=== PATIENT | female | born 1945 | race Caucasian/White ===

== ENCOUNTER 2017-04-22 08:47 | Inpatient (IN) ==
--- NOTE | 2017-04-22 09:31 | Emergency Department Note ---
Disposition Clinical Impression: Atrial fibrillation with RVR Disposition: Admitted As Inpatient Condition: Good Arrhythmia/Palpitations HPI - General Chief Complaint: ED Arrhythmia/Palpitations Stated Complaint: "A-fibs acting up" Time Seen by Provider: 04/22/17 08:54 Source: patient Mode of arrival: private vehicle Limitations: no limitations Nursing Notes Reviewed: Yes Vital Signs Reviewed: Yes - History of Present Illness HPI Narrative: 71-year-old female history of A. fib, hypertension, hyperlipidemia, diabetes who presents to the ER for palpitations or dizziness. Patient states she woke up this morning around 3 AM and fell twice because she felt weak. She states she then noticed that she was having palpitations and her heart felt like it was beating out of her chest. She reports a history of atrial fibrillation followed with cardiology and anticoagulated. No changes in her medications or missed doses. No chest pain or shortness of breath. Denies a history of CAD, SD, DVT or PE. No other complaints. Pt Subjective Complaint: palpitations Onset (ago): Just [employer] Duration: constant Severity: moderate Context: awoke with symptoms Arrhythmia History: atrial fibrillation Associated symptoms: Reports: near-syncope. Denies: chest pain, shortness of breath, syncope - Related Data Home Medications Medication Instructions Recorded Confirmed Aspirin 81 mg PO DAILY 08/21/16 04/22/17 Atorvastatin [Lipitor] 40 mg PO HS 08/21/16 04/22/17 Dabigatran [Pradaxa] 150 mg PO BID 08/21/16 04/22/17 Diltiazem HCl [Diltiazem 24Hr Cd] 360 mg PO DAILY 08/21/16 04/22/17 Flecainide 100 mg PO Q12HR 08/21/16 04/22/17 Insulin Glargine [Lantus] 27 unit SQ HS 08/21/16 04/22/17 Insulin LISPRO [Humalog] 7 - 10 unit SQ TID PRN 08/21/16 04/22/17 Losartan Potassium [Cozaar] 100 mg PO DAILY 08/21/16 04/22/17 Ergocalciferol (VITAMIN D2) 50,000 unit PO QWEEK 04/22/17 04/22/17 [Vitamin D2] Allergies Allergy/AdvReac Type Severity Reaction Status Date / Time Penicillins [PCN] Allergy Anaphylaxis Verified 04/22/17 08:49 Sulfa (Sulfonamide Allergy Hives Verified 04/22/17 08:49 Antibiotics) All systems ED: reviewed and negative except as stated. Cardiovascular: Reports: palpitations. Denies: chest pain Respiratory: Denies: cough, dyspnea Gastrointestinal: Denies: abdominal pain, nausea, vomiting Neurological: Reports: other (Near syncope) Past Medical History - Past Medical History Attestation: Yes The following information was validated with the patient. Source: patient Medical history: Reports: arthritis, atrial fibrillation, diabetes, GERD, hyperlipidemia, hypertension Surgical history: Reports: carotid endarterectomy, cataract, orthopedic, other, other Psychiatric history: Reports: no psych history SURGICAL SUPPLIES STERILIZER history: Reports: no SURGICAL SUPPLIES STERILIZER history - Social History Smoking Status: Former smoker Smokeless Tobacco Status: No Alcohol use: Reports: none Drug use: Reports: none Physical Exam - General Limitations: no limitations General appearance: alert, in no apparent distress - Head Head exam: atraumatic, normocephalic, normal inspection - Eye Eye exam: Present: normal appearance, EOMI - ENT ENT exam: normal exam - Neck Neck exam: Present: normal inspection, full ROM - Chest Chest inspection: Present: normal inspection, symmetric chest wall rise - Respiratory Respiratory exam: Present: normal lung sounds bilaterally - Cardiovascular Cardiovascular exam: Present: tachycardia, irregular rhythm, normal heart sounds - Abdominal Exam Abdominal exam: Present: soft, Non-Tender. Absent: tenderness, distention, rigidity - Extremities Exam Extremities exam: Present: normal inspection, full ROM - Expanded Upper Extremity Exam Shoulder exam: Present: normal inspection, full ROM Arm exam: Present: normal inspection, full ROM Elbow exam: Present: normal inspection, full ROM Forearm/Wrist exam: Present: normal inspection, full ROM Hand exam: Present: normal inspection, full ROM Vascular exam: Normal: radial pulse - Expanded Lower Extremity Exam Hip/Pelvis exam: Present: normal inspection, full ROM Upper leg exam: Present: normal inspection, full ROM Knee exam: Present: normal inspection, full ROM Lower leg exam: Present: normal inspection, full ROM Ankle exam: Present: normal inspection, full ROM Foot/toe exam: Present: normal inspection, full ROM Neurovascular/Tendon exam: Absent: motor deficit, sensory deficit - Neurological Exam Neurological exam: Present: alert, other (GCS 15. Nonfocal neurologic exam.) - Psychiatric Psychiatric exam: Present: normal affect, normal mood - Skin Skin exam: Present: warm, dry, intact, normal color Course Course Narrative: Patient seen and examined. Hemodynamically stable here. Her heart rate is in the 120s. We will obtain an EKG, chest x-ray as well as labs including troponin and TSH. We will give her a Cardizem bolus and started Cardizem drip and admitted to the hospitalist service. - Reevaluation(s) Reevaluation #1: Discussed results of imaging and lab work with the patient. Her heart rate is currently in the 80s to low 100s after the Cardizem bolus. We will continue the drip and admit. Vital Signs Temperature 97.7 F 04/22/17 08:49 Pulse Rate 138 04/22/17 08:49 Respiratory Rate 20 04/22/17 08:49 Blood Pressure 91/54 04/22/17 08:49 O2 Sat by Pulse Oximetry 99 04/22/17 08:49 Temperature 97.7 F 04/22/17 08:49 Pulse Rate 104 04/22/17 10:52 Respiratory Rate 18 04/22/17 12:14 Blood Pressure 133/81 04/22/17 12:14 O2 Sat by Pulse Oximetry 96 04/22/17 10:52 Oxygen Delivery Oxygen Delivery Room Air Arrhythmia/Palpitations - [facility] Narrative Medical decision making narrative: 71-year-old female presents to the ER due to near syncope and palpitations. Found to be in A. fib RVR here. Reports compliance with her medications with no acute changes. She is currently anticoagulated. EKG here demonstrates A. fib RVR. Patient given Cardizem bolus and drip. Troponin is within normal limits. Admitted to the hospitalist service for A. fib RVR. - Lab Data Lab results reviewed: Yes I reviewed the patient's lab results. Result diagrams: 04/22/17 09:10 04/22/17 09:10 Lab Results 04/22/17 04/22/17 04/22/17 Range/Units 09:10 09:10 09:10 WBC 6.6 (4.3-11.1) K/mcL RBC 4.43 (3.82-4.97) M/mcL Hgb 14.4 (11.5-15.4) g/dL Hct 43.1 (35.3-44.9) % MCV 97.3 (83.0-100.0) fL MCH 32.5 (28.0-33.3) pg MCHC 33.4 (31.6-35.5) g/dL RDW 12.2 (11.5-14.5) % Plt Count 310 (140-400) K/mcL MPV 9.2 L (9.4-12.4) fL Immature Gran % 0.3 (0-4) % Seg Neutrophils % 78.9 % Lymphocytes % 14.0 % Monocytes % 5.6 % Eosinophils % 0.9 % Basophils % 0.3 % Neutrophils # 5.2 (1.6-8.9) K/mcL Lymphocytes # 0.9 (0.6-4.6) K/mcL Monocytes # 0.4 (0.0-1.3) K/mcL Eosinophils # 0.1 (0.0-0.6) K/mcL Basophils # 0.0 (0.0-0.2) K/mcL PT 14.2 H (9.4-12.1) Seconds INR 1.3 APTT 72.9 H (26.0-36.0) Seconds Sodium 139 (136-145) mEq/L Potassium 4.5 (3.5-4.5) mEq/L Chloride 103 (98-109) mEq/L Carbon Dioxide 25 (19-29) mEq/L BUN 29 H (7-20) mg/dL Creatinine 1.22 H (0.57-1.11) mg/dL Est GFR ( Amer) 53 L (> 60) Est GFR (Non-Af Amer) 44 L (> 60) BUN/Creatinine Ratio 24 (6-26) Glucose 263 H (70-99) mg/dL Calculated Osmolality 303 H (280-300) Calcium 10.5 (8.6-10.8) mg/dL Troponin I (0-0.03) ng/mL TSH 3.220 (0.350-4.840) mcIU/mL 04/22/17 Range/Units 09:10 WBC (4.3-11.1) K/mcL RBC (3.82-4.97) M/mcL Hgb (11.5-15.4) g/dL Hct (35.3-44.9) % MCV (83.0-100.0) fL MCH (28.0-33.3) pg MCHC (31.6-35.5) g/dL RDW (11.5-14.5) % Plt Count (140-400) K/mcL MPV (9.4-12.4) fL Immature Gran % (0-4) % Seg Neutrophils % % Lymphocytes % % Monocytes % % Eosinophils % % Basophils % % Neutrophils # (1.6-8.9) K/mcL Lymphocytes # (0.6-4.6) K/mcL Monocytes # (0.0-1.3) K/mcL Eosinophils # (0.0-0.6) K/mcL Basophils # (0.0-0.2) K/mcL PT (9.4-12.1) Seconds INR APTT (26.0-36.0) Seconds Sodium (136-145) mEq/L Potassium (3.5-4.5) mEq/L Chloride (98-109) mEq/L Carbon Dioxide (19-29) mEq/L BUN (7-20) mg/dL Creatinine (0.57-1.11) mg/dL Est GFR ( Amer) (> 60) Est GFR (Non-Af Amer) (> 60) BUN/Creatinine Ratio (6-26) Glucose (70-99) mg/dL Calculated Osmolality (280-300) Calcium (8.6-10.8) mg/dL Troponin I 0.01 (0-0.03) ng/mL TSH (0.350-4.840) mcIU/mL - Radiology Data Radiology results reviewed: Yes I reviewed the patient's radiology results. Chest X-Ray 04/22/17 09:17 IMPRESSION: No acute process. D/ / Nolberto Ricks MD / Nolberto Ricks MD Interpreting Provider: Nolberto Ricks MD - EKG Data EKG attestation: Yes I reviewed and interpreted this EKG. EKG results narrative: EKG demonstrates atrial fibrillation with rapid ventricular response with a rate of 122. Normal axis. QRS duration 104. QTC 372. ST flattening in lead 3. Nonspecific ST-T wave changes with slight 1 mm depression in lead V5 and V6. No gross ST elevations. Teresa - Teresa Situation: Demographics, MOA Background: Presenting Complaint, Relevant PMH, Meds, & Allergies Assessment: Vital Signs, Course and respsone to treatment, Exam Concerns, Patient/Family Expectation, Pertinant Lab Results, Outstanding Labs Recommendation: Barrier(s) to disposition, Recommendation based on pending studies, treatments, or consults Teersa Report Given to: Dr. David Moore Repor Time: 10:52 Attestation Statement - Attestation Attestation: I examined this patient and my medical decision-making was reviewed with the Resident Physician. I agree with the documented findings, disposition and treatment plan as described except to the extent set forth below. Patient eating complaint palpitations. Patient states she has a history of A. fib and she feels like she has gone into that rhythm again. Exam shows her laying in bed in no acute distress. Heart is tachycardia and irregularly irregular. Plan. Cardiac workup and Cardizem. Labs unremarkable. Patient admitted to medicine. 35 minutes of critical care exclusive of separately billable procedures.
[2017-04-22 09:38] LABS: Basophils % 0.3 %; Calcium 10.5 mg/dL (8.6-10.8); Eosinophils # 0.1 K/mcL (0.0-0.6); Eosinophils % 0.9 %; Hematocrit 43.1 % (35.3-44.9); Hemoglobin 14.4 g/dL (11.5-15.4); Immature Granulocytes % 0.3 % (0-4); Lymphocytes # 0.9 K/mcL (0.6-4.6); Mean Corpuscular HGB Conc 33.4 g/dL (31.6-35.5); Mean Corpuscular Hemoglobin 32.5 pg (28.0-33.3); Mean Corpuscular Volume 97.3 fL (83.0-100.0); Mean Platelet Volume 9.2 fL (9.4-12.4); Monocytes # 0.4 K/mcL (0.0-1.3); Monocytes % 5.6 %; Neutrophils # 5.2 K/mcL (1.6-8.9); Platelet Count 310 K/mcL (140-400); Potassium 4.5 mEq/L (3.5-4.5); Red Blood Count 4.43 M/mcL (3.82-4.97); Red Cell Distribution Width 12.2 % (11.5-14.5); Segmented Neutrophils % 78.9 %
[2017-04-22 09:44] LABS: INR 1.3; Prothrombin Time 14.2 Seconds (9.4-12.1)
[2017-04-22 09:47] LABS: Activated Partial Thrombo Time 72.9 Seconds (26.0-36.0)
[2017-04-22 10:10] LABS: Thyroid Stimulating Hormone 3.22 mcIU/mL (0.350-4.840)
[2017-04-22] MEDS ORDERED: Naloxone 0.4 MG/ML INJ IVP PRN (11:55)
[2017-04-22] MEDS ORDERED: Ondansetron 4 MG/2 ML VIAL IVP PRN (11:55)
[2017-04-22] MEDS ORDERED: *HR* Morphine 2 MG/ML SYRINGE IVP PRN (11:55)
[2017-04-22] MEDS ORDERED: Acetaminophen 325 MG TABLET PO PRN (11:55)
[2017-04-22] MEDS ORDERED: *HR* HYDROcodone/Acet 5/325 mg TABLET PO PRN (11:55)
[2017-04-22] MEDS ORDERED: Dextrose Gel 15 GM PO PRN ×2 (12:40)
[2017-04-22] MEDS ORDERED: D5% in Water 1,000 ML IVC PRN (12:40)
[2017-04-22] MEDS ORDERED: *HR* Dextrose 50 % in Water (Syg) 50 ML SYRINGE IVP PRN (12:40)
--- NOTE | 2017-04-22 12:48 | Internal Med History&Physical ---
<Ki Snowden - Last Filed: 04/22/17 14:51> Date of Encounter: 04/22/17 Time of Encounter: 11:30 Assessment and Plan (1) Atrial fibrillation with RVR Current visit: Yes Status: Acute Patient presents with atrial fibrillation with RVR today on admission. She states symptoms began at 3 a.m. and have continued. Patient currently takes flecainide and Cardizem by mouth for rate control and arrhythmia. Patient placed on Cardizem drip to be titrated if patient becomes bradycardic. Will hold flecainide and Cardizem for now and continue after discontinuation of Cardizem drip. Patient placed on continuous cardiac telemetry. Repeat EKG ordered. Echocardiogram ordered. Will consider cardiology consult based on echocardiogram results. Patient to be monitored closely. (2) Weakness Current visit: Yes Status: Acute Patient reports acute weakness related to her current atrial fibrillation with RVR. Patient states she fell twice this morning due to weakness and dizziness. Orthostatic BPs and VS ordered. Patient placed as falls precautions/up with assist only/bed rest with bathroom privileges with assist only due to weakness and dizziness. (3) Diabetes Current visit: Yes Status: Chronic Patient presents with history of chronic diabetes controlled with insulin. Patient's glucose on admission is 263. We will continue patient's insulin and add low-dose correction sliding scale insulin with hypoglycemic protocol. Blood glucose monitoring before meals at bedtime. A1c ordered for a.m. labs. 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 IVP Zofran every 6 when necessary and IVP Protonix 40 mg twice a day ordered. Qualifiers: Esophagitis presence: esophagitis presence not specified Qualified Code(s) : K21.9 - Gastro-esophageal reflux disease without esophagitis (5) HLD (hyperlipidemia) Current visit: Yes Status: Chronic Patient presents with history of chronic hyperlipidemia. Lipid panel ordered and will continue patient's Lipitor. Qualifiers: Hyperlipidemia type: pure hypercholesterolemia Qualified Code(s): E78.00 - Pure hypercholesterolemia, unspecified; E78.0 - Pure hypercholesterolemia (6) HTN (hypertension) Current visit: Yes Status: Chronic Patient presents with history of chronic hypertension. We will monitor patient vital signs and continue patient's Cozaar. Qualifiers: Hypertension type: essential hypertension Qualified Code(s): I10 - Essential (primary) hypertension (7) CKD (chronic kidney disease) stage 3, GFR 30-59 ml/min Current visit: Yes Status: Chronic Patient presents with CKD, stage III with current GFR of 44. Will use IV fluids judiciously if warranted and avoid nephrotoxic agents. Renal diet ordered. Monitor I&O and daily weight. (8) DVT prophylaxis Current visit: Yes Status: Acute Patient to continue Pradaxa for anticoagulation and DVT prophylaxis. Internal Medicine - H&P: HPI Chief complaint: Heart arrhythmia/Atrial fibrillation w/RVR Admitted From: Emergency Dept Plans for Post Hospital Care: Home History of present illness: Ms. Marquez is a 71 year old female with medical history of arthritis, atrial fibrillation, diabetes with insulin control, GERD, hyperlipidemia, and hypertension presents from the ED with chief complaint heart arrhythmia, palpitations, and dizziness since 3 AM this morning. Patient has history of atrial fibrillation and is currently on Pradaxa for anticoagulation as well as flecainide and Cardizem for rate/arrhythmia. Patient has not had a recent echocardiogram. Patient denies chest pain, recent illness, fever, chills, nausea, vomiting, shortness of breath, headache, changes in vision, abdominal pain, presyncope, or syncope. On admission, patient's vital signs include temperature of 97.7F, heart rate of 138 bpm, respiratory rate 20, BP of 91/54, and SPO2 99% on room air. Abnormal labs include PT of 14.2, APTT 72.9, BUN of 29, creatinine of 1.22, GFR 44, glucose of 263, and calculated osmolality of 303. Initial troponin is 0.01. 1-View CXR today shows no acute process. On examination, patient's heart rate is regular A. fib with RVR. Lungs are clear on auscultation. There is no bilateral pedal edema. Patient is hemodynamically stable and reports no acute distress. Information taken from patient, family, chart review, previous medical records. Patient is at high risk for cardiac event based on current symptoms, history, and risk factors and will be placed as inpatient status. Time spent with patient and family >40 minutes. Past Med Surg Social Fam HX - Past Medical History Source: patient, old records reviewed Medical history: arthritis, atrial fibrillation, diabetes, GERD, hyperlipidemia , hypertension Psychiatric history: no psych history - Past Surgical History Surgical History: carotid endarterectomy (Right), cataract (Bilateral), orthopedic, other (Bilateral shoulder, bilateral carpal tunnel), other - Social History Smoking Status: Never smoker Smokeless Tobacco Status: No Alcohol use: none Drug use: none Current living situation: Home, With Family Activity Level: Independent ambulation Recent Out of Country Travel Within the Last 8 Weeks: No Exposure or Possible Exposure to Illness During Travel: No - Family History Father Race: Family Member Ethnicity: Non- Living Status: Age at : 62 Cause of : GA Hx Family Cardiac Disorders: Yes (GA) Hx Family Endocrine Disorder: Yes (DM) Mother Race: Family Member Ethnicity: Non- Living Status: Age at : 89 Cause of : HD Hx Family Cardiac Disorders: Yes (HD, HTN) Hx Family Endocrine Disorder: Yes (DM) Sister Race: Family Member Ethnicity: Non- Living Status: Still Living Hx Family Endocrine Disorder: Yes (DM) Internal Medicine - H&P: Meds Aspirin 81 mg PO DAILY 08/21/16 [History] Atorvastatin [Lipitor] 40 mg PO HS 08/21/16 [History] Dabigatran [Pradaxa] 150 mg PO BID 08/21/16 [History] Diltiazem HCl [Diltiazem 24Hr Cd] 360 mg PO DAILY 08/21/16 [History] Flecainide 100 mg PO Q12HR 08/21/16 [History] Insulin Glargine [Lantus] 27 unit SQ HS 08/21/16 [History] Insulin LISPRO [Humalog] 7 - 10 unit SQ TID PRN 08/21/16 [History] Losartan Potassium [Cozaar] 100 mg PO DAILY 08/21/16 [History] Ergocalciferol (VITAMIN D2) [Vitamin D2] 50,000 unit PO QWEEK 04/22/17 [History] 3 Allergy/AdvReac Type Severity Reaction Status Date / Time Penicillins [PCN] Allergy Anaphylaxis Verified 04/22/17 08:49 Sulfa (Sulfonamide Allergy Hives Verified 04/22/17 08:49 Antibiotics) All Systems PM: A 10-system review of systems was performed and is negative for pertinent findings except as documented above in the HPI. - Constitutional Constitutional: as per HPI, weakness, no chills, no fever(s), no night sweats - EENT Eyes: no change in vision, no discharge, no pain, no photophobia Ears: no ear discharge, no ear pain, no tinnitus Nose, mouth and throat: no dysphagia, no nasal discharge, no neck pain, no sore throat - Breasts Breasts: as per HPI - Cardiovascular Cardiovascular ROS IM: as per HPI, irregular heart rhythm, lightheadedness - Respiratory Respiratory: no cough, no dyspnea, no wheezing, no excessive phlegm production - Gastrointestinal Gastrointestinal: no abdominal pain, no diarrhea, no hematemesis, no hematochezia, no melena, no nausea, no vomiting - Genitourinary Genitourinary: no change in urinary stream, no dysuria, no flank pain, no hematuria Menstruation: as per HPI - Musculoskeletal Musculoskeletal ROS IM: no numbness, no tingling - Integumentary Integumentary IM: no rash, no unusual bruising - Neurological Neurological ROS: no confusion, no convulsions, no focal weakness, no numbness, no tingling, no tremor(s) - Psychiatric Psychiatric: as per HPI - Endocrine Endocrine IM: as per HPI - Hematologic/Lymphatic Hematologic/Lymphatic: no easy bruising - Allergic/Immunologic Allergic/Immunologic: as per HPI - Constitutional Vitals: Temp Pulse Resp BP Pulse Ox 97.7 F 104 18 133/81 96 04/22/17 08:49 04/22/17 10:52 04/22/17 12:14 04/22/17 12:14 04/22/17 10:52 General appearance: Present: cooperative, A&O X 3, pleasant, no acute distress, obese, answers questions appropriately - Head Head exam: Present: atraumatic, normocephalic - Eye Eye exam: Present: PERRL, conjuntiva pink, sclera anicteric Pupils: Present: PERRL - ENT ENT exam: Present: normal exam, normal external ear exam - Neck Neck exam general surgery: Present: normal inspection, supple, trachea midline. Absent: lymphadenopathy - Respiratory Respiratory exam: Present: CTAB. Absent: accessory muscle use, rales, rhonchi, wheezes - Cardiovascular Cardiovascular exam: Present: irregular rhythm - GI/Abdominal GI/Abdominal exam: Present: normal bowel sounds, soft, no peritoneal signs. Absent: distended, tenderness - Rectal Rectal exam: Present: deferred - Additional comments: exam deferred. - Extremities Exam Extremities exam: Present: warm, radial pulses palpable and symmetrical. Absent : calf tenderness, cyanotic, pedal edema - Back Exam Back exam: Present: normal inspection - Neurological Exam Neurological exam: Present: CN II-XII intact, oriented X3, no focal deficits. Absent: pronater drift, facial droop, speech deficit - Psychiatric Psychiatric exam: Present: normal affect, normal mood - Skin Skin exam: Present: dry, intact Internal Med - H&P Results - Labs CBC & Chem 7: 04/22/17 09:10 04/22/17 09:10 - EKG Data Prior EKG available for review: no Interpretation IM: suggestive of ischemia EKG comments: 04/22/17 14:30 EKG dated 04/22/17 shows atrial fibrillation with rapid ventricular response, ST deviation and moderate T-wave abnormality. Consider lateral ischemia. - Diagnostic Studies Chest x-ray Additional comments: Impressions Chest X-Ray 04/22/17 09:17 IMPRESSION: No acute process. D/ / Nolberto Ricks MD / Nolberto Ricks MD Interpreting Provider: Nolberto Ricks MD <Hema Heller P - Last Filed: 04/22/17 18:38> Date of Encounter: 04/22/17 Internal Medicine - H&P: HPI History of present illness: Ms. Marquez is a 71 year old female All Systems PM: A 10-system review of systems was performed and is negative for pertinent findings except as documented above in the HPI. - Constitutional Vitals: Temp Pulse Resp BP Pulse Ox 98.5 F 54 16 113/57 96 04/22/17 13:29 04/22/17 16:07 04/22/17 16:07 04/22/17 16:07 04/22/17 16:07 Internal Med - H&P Results - Labs CBC & Chem 7: 04/22/17 09:10 04/22/17 09:10 - Attending Attestation I examined this patient and my medical decision-making was reviewed with the Resident Physician. I agree with the documented findings, disposition and treatment plan as described except to the extent set forth below.
[2017-04-22] MEDS: Insulin LISPRO 300 UNITS/3 ML VIAL SQ SCH ×3 (13:57→20:41)
[2017-04-22] MEDS: *HR* Dabigatran 150 MG CAPSULE PO SCH (20:40)
[2017-04-22] MEDS: Pantoprazole 40 MG VIAL IVP SCH (20:40)
[2017-04-22] MEDS: Insulin DETEMIR 100 UNIT/ML X5UNITS SQ SCH (20:41)
[2017-04-22] MEDS ORDERED: INSULIN GLARGINE 27 UNIT SQ SCH (21:00)
[2017-04-23 05:16] LABS: Basophils % 0.4 %; Eosinophils # 0.1 K/mcL (0.0-0.6); Eosinophils % 1.8 %; Hematocrit 39.2 % (35.3-44.9); Immature Granulocytes % 0.1 % (0-4); Lymphocytes # 2.3 K/mcL (0.6-4.6); Lymphocytes % 33.8 %; Mean Corpuscular HGB Conc 33.2 g/dL (31.6-35.5); Mean Corpuscular Hemoglobin 32.6 pg (28.0-33.3); Mean Corpuscular Volume 98.2 fL (83.0-100.0); Mean Platelet Volume 9.3 fL (9.4-12.4); Monocytes # 0.6 K/mcL (0.0-1.3); Monocytes % 9.3 %; Neutrophils # 3.7 K/mcL (1.6-8.9); Platelet Count 283 K/mcL (140-400); Red Blood Count 3.99 M/mcL (3.82-4.97); Red Cell Distribution Width 12.4 % (11.5-14.5); Segmented Neutrophils % 54.6 %
[2017-04-23 05:20] LABS: INR 1.2; Prothrombin Time 13.1 Seconds (9.4-12.1)
[2017-04-23 05:23] LABS: Activated Partial Thrombo Time 53.5 Seconds (26.0-36.0)
[2017-04-23 05:30] LABS: Alanine Aminotransferase 13 Units/L (0-55); Albumin 3.4 g/dL (3.5-5.0); Albumin/Globulin Ratio 0.9 (1.1-2.2); Alkaline Phosphatase 92 Units/L (38-126); Aspartate Amino Transferase 16 Units/L (5-34); BUN/Creatinine Ratio 26 (6-26); Bilirubin,Total 0.5 mg/dL (0.2-1.2); Blood Urea Nitrogen 26 mg/dL (7-20); Calcium 10.1 mg/dL (8.6-10.8); Carbon Dioxide 27 mEq/L (19-29); Chloride 108 mEq/L (98-109); Chol/HDL Ratio 3.8 (0-4.9); Cholesterol 226 mg/dL (< 200); Glucose 95 mg/dL (70-99); HDL Cholesterol 60 mg/dL (40-59); LDL Cholesterol,Calculated 126 mg/dL (0-99); Magnesium 2.1 mg/dL (1.6-2.6); Osmolality,Calculated 301 (280-300); Potassium 4.2 mEq/L (3.5-4.5); Sodium 143 mEq/L (136-145); Total Protein 7.4 g/dL (6.0-8.3); Triglycerides 202 mg/dL (< 150); eGFR For African Americans > 60 (> 60); eGFR For Non-African Americans 54 (> 60)
[2017-04-23] MEDS: Diltiazem CD (24hr) 180 MG CAPSULE PO SCH (08:28)
[2017-04-23] MEDS: Insulin LISPRO 300 UNITS/3 ML VIAL SQ SCH ×4 (08:29→21:38)
[2017-04-23] MEDS: *HR* Dabigatran 150 MG CAPSULE PO SCH ×2 (08:29→21:36)
[2017-04-23] MEDS: Aspirin 81 MG TAB.CHEW PO SCH (08:29)
[2017-04-23] MEDS: Pantoprazole 40 MG VIAL IVP SCH ×2 (08:29→21:35)
--- NOTE | 2017-04-23 10:25 | Discharge Summary ---
Date of Encounter: 04/23/17 Time of Encounter: 09:15 - Discharge Medications Home Medications: Aspirin 81 mg PO DAILY 08/21/16 [History] Atorvastatin [Lipitor] 40 mg PO HS 08/21/16 [History] Dabigatran [Pradaxa] 150 mg PO BID 08/21/16 [History] Diltiazem HCl [Diltiazem 24Hr Cd] 360 mg PO DAILY 08/21/16 [History] Flecainide 100 mg PO Q12HR 08/21/16 [History] Insulin Glargine [Lantus] 27 unit SQ HS 08/21/16 [History] Insulin LISPRO [Humalog] 7 - 10 unit SQ TID PRN 08/21/16 [History] Losartan Potassium [Cozaar] 100 mg PO DAILY 08/21/16 [History] Ergocalciferol (VITAMIN D2) [Vitamin D2] 50,000 unit PO QWEEK 04/22/17 [History] Allergies/Adverse Reactions: 3 Allergy/AdvReac Type Severity Reaction Status Date / Time Penicillins [PCN] Allergy Anaphylaxis Verified 04/22/17 08:49 Sulfa (Sulfonamide Allergy Hives Verified 04/22/17 08:49 Antibiotics) Date of admission: 04/22/17 17:01 Primary care physician: Americo Arguello Jr, MD - Patient Status Condition: Good - Discharge Instructions Follow Up With: Americo Arguello Jr, MD [Primary Care Provider] - Hospital course: Ms. Marquez is a 71 year old female - Time Spent with Patient Total time spent providing and/or coordinating discharge services: - Constitutional Vitals: Temp Pulse Resp BP Pulse Ox 97.6 F 102 14 135/83 97 04/23/17 07:10 04/23/17 07:10 04/23/17 07:10 04/23/17 07:10 04/23/17 07:10 General appearance: Present: cooperative, A&O X 3, pleasant, no acute distress, obese, answers questions appropriately
--- NOTE | 2017-04-23 10:29 | Internal Med Progress Note ---
<Collins Perez - Last Filed: 04/23/17 16:03> Date of Encounter: 04/23/17 Time of Encounter: 09:15 - Assessment and plan (1) Atrial fibrillation with RVR Current Visit: Yes Status: Acute Assessment and plan: Patient has history of A fib with RVR Patient is on Cardiazem and Flecianide for rate control at home. Patient was taken off of cardiazem drip and was restarted on home meds. Patient's HR was still tachy on her home meds so Metoprolol was added. Continue to monitor. Will get a Stress test tomorrow to evaluate for possible cause of patient going into RVR. (2) Weakness Current Visit: Yes Status: Acute Assessment and plan: resolved. Likely 2/2 to a fib with RVR Continue to monitor. (3) Diabetes Current Visit: Yes Status: Chronic Assessment and plan: Chronic, Stable. Continue diabetic protocol. A1C 6.0 down from 6.2 in August. Qualifiers: Diabetes mellitus type: type 2 Diabetes mellitus complication status: with unspecified complications Diabetes mellitus emt intermediate insulin use: with correction use Qualified Code(s): E11.8 - Type 2 diabetes mellitus with unspecified complications; Z79.4 - manager intermediate (current) use of insulin (4) GERD (gastroesophageal reflux disease) Current Visit: Yes Status: Chronic Assessment and plan: Chronic, Stable. Continue PPI. Qualifiers: Esophagitis presence: esophagitis presence not specified Qualified Code(s) : K21.9 - Gastro-esophageal reflux disease without esophagitis (5) HLD (hyperlipidemia) Current Visit: Yes Status: Chronic Assessment and plan: Chronic. Patient's Cholesterol Panel showed Cholesterol 226, LDL 126, VLDL 40, HDL 60, and Triglycerides 202. Increased patient's Lipitor form 40mg to 80mg. Qualifiers: Hyperlipidemia type: pure hypercholesterolemia Qualified Code(s): E78.00 - Pure hypercholesterolemia, unspecified; E78.0 - Pure hypercholesterolemia (6) HTN (hypertension) Current Visit: Yes Status: Chronic Assessment and plan: Chronic, Stable. Continue home meds. Qualifiers: Hypertension type: essential hypertension Qualified Code(s): I10 - Essential (primary) hypertension (7) CKD (chronic kidney disease) stage 3, GFR 30-59 ml/min Current Visit: Yes Status: Chronic Assessment and plan: Chronic Stable. Avoid nephrotoxins Continue home meds. - Subjective Interval history: Patient reports feeling well. She reports her weakness/dizziness has resolved. She reports walking to the bathroom and back with out issue. No clear cause for patient's A fib with RVR. Patient has hx of A fib. - Constitutional Vitals: Temp Pulse Resp BP Pulse Ox 97.6 F 102 14 135/83 97 04/23/17 07:10 04/23/17 07:10 04/23/17 07:10 04/23/17 07:10 04/23/17 07:10 General appearance: Present: cooperative, A&O X 3, pleasant, no acute distress, obese, answers questions appropriately - Head Head exam: Present: atraumatic, normocephalic - Eye Eye exam: Present: PERRL, conjuntiva pink, sclera anicteric Pupils: Present: PERRL - Neck Neck exam general surgery: Present: supple, trachea midline - Respiratory Respiratory exam: Present: CTAB. Absent: accessory muscle use, rales, rhonchi, wheezes - Cardiovascular Cardiovascular exam: Present: RRR, +S1, +S2. Absent: diastolic murmur, gallop, rubs, systolic murmur - GI/Abdominal GI/Abdominal exam: Present: normal bowel sounds, soft, no peritoneal signs. Absent: distended, tenderness - Extremities Exam Extremities exam: Present: warm, radial pulses palpable and symmetrical. Absent : calf tenderness, cyanotic, pedal edema - Neurological Exam Neurological exam: Present: alert, oriented X3, no focal deficits. Absent: facial droop, speech deficit - Psychiatric Psychiatric exam: Present: normal affect, normal mood - Skin Skin exam: Present: dry, intact Internal Medicine: Result - Labs CBC & Chem 7: 04/23/17 04:25 04/23/17 04:25 Labs: Short CBC 04/23/17 Range/Units 04:25 WBC 6.8 (4.3-11.1) K/mcL Hgb 13.0 (11.5-15.4) g/dL Hct 39.2 (35.3-44.9) % Plt Count 283 (140-400) K/mcL Neutrophils # 3.7 (1.6-8.9) K/mcL BMP 04/23/17 04:25 Sodium 143 Potassium 4.2 Chloride 108 Carbon Dioxide 27 BUN 26 H Creatinine 1.01 Glucose 95 Calcium 10.1 Cardiac Enzymes 04/22/17 Range/Units 22:37 Troponin I 0.01 (0-0.03) ng/mL Liver Function 04/23/17 Range/Units 04:25 Total Bilirubin 0.5 (0.2-1.2) mg/dL AST 16 (5-34) Units/L ALT 13 (0-55) Units/L Alkaline Phosphatase 92 (38-126) Units/L Albumin 3.4 L (3.5-5.0) g/dL - ABG Interpretation ABG results: PT/INR, D-dimer PT 13.1 Seconds (9.4-12.1) H 04/23/17 04:25 Consult Discharge Plan - Plan Referrals: Americo Arguello Jr, MD [Primary Care Provider] - <Hema Heller P - Last Filed: 04/23/17 18:34> Date of Encounter: 04/23/17 - Constitutional Vitals: Temp Pulse Resp BP Pulse Ox 97.9 F 61 12 107/65 95 04/23/17 15:55 04/23/17 15:55 04/23/17 15:55 04/23/17 15:55 04/23/17 15:55 Internal Medicine: Result - Labs CBC & Chem 7: 04/23/17 04:25 04/23/17 04:25 Labs: Short CBC 04/23/17 Range/Units 04:25 WBC 6.8 (4.3-11.1) K/mcL Hgb 13.0 (11.5-15.4) g/dL Hct 39.2 (35.3-44.9) % Plt Count 283 (140-400) K/mcL Neutrophils # 3.7 (1.6-8.9) K/mcL BMP 04/23/17 04:25 Sodium 143 Potassium 4.2 Chloride 108 Carbon Dioxide 27 BUN 26 H Creatinine 1.01 Glucose 95 Calcium 10.1 Cardiac Enzymes 04/22/17 Range/Units 22:37 Troponin I 0.01 (0-0.03) ng/mL Liver Function 04/23/17 Range/Units 04:25 Total Bilirubin 0.5 (0.2-1.2) mg/dL AST 16 (5-34) Units/L ALT 13 (0-55) Units/L Alkaline Phosphatase 92 (38-126) Units/L Albumin 3.4 L (3.5-5.0) g/dL - ABG Interpretation ABG results: PT/INR, D-dimer PT 13.1 Seconds (9.4-12.1) H 04/23/17 04:25 - Attending Attestation I examined this patient and my medical decision-making was reviewed with the Resident Physician. I agree with the documented findings, disposition and treatment plan as described except to the extent set forth below.
--- NOTE | 2017-04-23 18:29 | Electrocardiograph Report ---
[address] [address] Test Date: 2017-04-22 Pat Name: Yaa Marquez Department: 105 Room: 2NE23 Gender: F Underwriting Analyst: MIRTA : 1945 Requested By: Radha See Order Number: [id number] Reading MD: Adelita Siu Measurements Intervals [place] Rate: 122 P: [place]: 0 QRS: 64 QRSD: 104 T: 130 QT: 299 QTc: 372 Interpretive Statements ATRIAL FIBRILLATION WITH RAPID VENTRICULAR RESPONSE ST DEVIATION AND MODERATE T-WAVE ABNORMALITY, CONSIDER LATERAL ISCHEMIA Electronically Signed On 04-23-2017 18:27:26 EDT by Adelita Siu
[2017-04-23] MEDS: Insulin DETEMIR 100 UNIT/ML X5UNITS SQ SCH (21:42)
[2017-04-24] MEDS ORDERED: Regadenoson 0.4 MG/5 ML SYRINGE IVP ONE (06:55)
[2017-04-24 07:05] LABS: Calcium 9.2 mg/dL (8.6-10.8); Potassium 4.4 mEq/L (3.5-4.5)
[2017-04-24] MEDS: Insulin LISPRO 300 UNITS/3 ML VIAL SQ SCH ×4 (09:10→21:21)
[2017-04-24] MEDS: Pantoprazole 40 MG VIAL IVP SCH ×2 (09:10→21:21)
[2017-04-24] MEDS: Aspirin 81 MG TAB.CHEW PO SCH (09:10)
[2017-04-24] MEDS: *HR* Dabigatran 150 MG CAPSULE PO SCH ×2 (09:11→21:21)
[2017-04-24] MEDS: Diltiazem CD (24hr) 180 MG CAPSULE PO SCH (09:11)
--- NOTE | 2017-04-24 13:02 | Nuclear Medicine Stress Report ---
Regadenoson Nuclear Stress Name: Yaa Marquez Date of Study: 04/24/2017 Date: 1945 Ht: 64.0 in Medical Record#: [id number] Age: 71 Wt: 157.0 lb Gender: Female Order #: [id number] Location: [facility] Room: [facility] Supervising Provider: Lm Garcia CNP Reading Physician: Jeffrey España DO, FACC, FASE, FASNC Ordering Physician: Shukri Koo MD Primary Care Physician: Americo Arguello MD Stress Technologist: Bibi Stone, CUSTODIAL LABORER, CCT, CPFT Real Estate Broker: Agata Beal Indications: A-fib Impression: Pharmacologic stress ECG is non-diagnostic for ischemia due to submaximal HR. Gated EF > 70%. Small sized, mild intensity, reversible apical lateral defect. Although I suspect this is artifact, ischemia cannot be excluded. Perfusion imaging was negative for infarct. History: Hypertension Diabetes Hypercholesteremia Stress Test Summary: Stress Test Type: Pharmacologic Regadenoson 0.4mg/5ml given IV Baseline Information: Initial Heart Rate: 62 Blood Pressure: 124/68 Stress Information: Stress Time: 4 min 00 sec Test Terminated Due to (primary): Completed Protocol Maximum Blood Pressure: 118/62 Maximum Heart Rate: 75 Percent Maximum Heart Rate Achieved: 50 Double Product: 8850 METS Reached: 1 Symptoms: Shortness of breath Nuclear Summary: SPECT myocardial perfusion imaging using Tc99m Sestamibi given intravenously was performed at rest and following cardiac stress testing. The resting images were obtained following initial dose of 10.8 mCi. Following stress an additional dose of 33 mCi was given at peak exercise or 30 seconds post regadenoson infusion. Medication Given: Time Medication Dose Units Route Findings: Stress Note * Atrial fibrillation throughout the study. * Pharmacologic stress ECG is non-diagnostic for ischemia due to submaximal HR. * Patient had no chest pain during stress. * Normal hemodynamic responses to pharmacologic stress. Study Quality * Study quality is average. Appeared to be contaminant on patient on tomographic images. Gated EF > 70% * Gated EF > 70%. Left Ventricle * The left ventricle is not dilated. * LVEDV = 47 mL. NORMALS * Normal wall motion. * Normal Segmental Perfusion in rest. Updated by Jeffrey España DO, FACCate, ARMINDA, JONATHON on 04/24/2017 12:54:54 PM electronically signed on 04/24/2017 12:57:00 PM with status of Final
--- NOTE | 2017-04-24 14:28 | Cardiology Consult Note ---
<Criselda Loza - Last Filed: 04/24/17 15:06> Date of Encounter: 04/24/17 Time of Encounter: 14:00 Assessment and Plan (1) Paroxysmal atrial fibrillation Current Visit: Yes Status: Chronic Per cardiology: -Known PAF. -ECg 04/22/27 with atrial fibrillation RVR, HR 122. Qt 299, Qtc 372. -On cardizem CD 360mg and flecanide. Beta blokcer added this admission. -was a.fib RVR on admission. HRs currently controlled, however remains in atrial fibrillation. -On pradaxa for anticoagulation. -Echo with LVEF 60-65%, indeterminate diastolic function, no significant valvular dysfunction, all hurst with normal motion. -Per discussion with , will increase flecanide to 150mg Q12 hours, creatinine clearance 52. -Will discontinue lopressor. -Will repeat ECG in am. -Will consult EP tomorrow. (2) Abnormal stress test Current Visit: Yes Status: Acute Per cardiology: -Nuclear stress today with small sized, mild intensity, reversible apical lateral defect. Suspected due to artifact, however ischemia could not be ruled out. -Denies chest pain, shortness of breath, or worsening fatigue. -On asa, statin, beta angel -ECG with no ischemic changes. -Troponins negative x3. -Per discussion with , will treat medically. Will discuss with EP tomorrow regarding possible need for LHC. Discussion w patient/family: The assessment and plan as outlined above was discussed with the patient and/or family members who expressed understanding and agreement. All questions were answered. Thank you for involving us in the care of your patient. Please call with any questions. Discussed and reviewed with . History of Present Illness Consult date: 04/24/17 Requesting physician: Collins Perez Consult reason: a.fib RVR, abnormal stress test Chief complaint: palpitations History of present illness: Ms. Marquez is a 71 year old female with a relevant past medical history of paroxysmal atrial fibrillation, HTN, DM, carotid stenosis with CEA, hyperlipidemia. Patient states she was at home and had palpitations and she noticed her HR was elevated. Patient presented to [facility] and was noted to be in atrial fibrillation with RVR. Patient denies chest pain or shortness of breath. Patient admits to fatigue, however states this is about baseline. Past Med Surg Social Fam HX - Past Medical History Attestation: Yes The following information was validated with the patient. Source: patient, old records reviewed Medical history: arthritis, atrial fibrillation, diabetes, GERD, hyperlipidemia , hypertension Psychiatric history: no psych history - Past Surgical History Surgical History: carotid endarterectomy (Right), cataract (Bilateral), orthopedic, other (Bilateral shoulder, bilateral carpal tunnel), other - Social History Smoking Status: Never smoker Smokeless Tobacco Status: No Alcohol use: none Drug use: none - Family History Father Race: Family Member Ethnicity: Non- Living Status: Age at : 62 Cause of : OR Hx Family Cardiac Disorders: Yes (OR) Hx Family Endocrine Disorder: Yes (DM) Mother Race: Family Member Ethnicity: Non- Living Status: Age at : 89 Cause of : HD Hx Family Cardiac Disorders: Yes (HD, HTN) Hx Family Endocrine Disorder: Yes (DM) Sister Race: Family Member Ethnicity: Non- Living Status: Still Living Hx Family Endocrine Disorder: Yes (DM) Medications and Allergies Aspirin 81 mg PO DAILY 08/21/16 [History] Atorvastatin [Lipitor] 40 mg PO HS 08/21/16 [History] Dabigatran [Pradaxa] 150 mg PO BID 08/21/16 [History] Diltiazem HCl [Diltiazem 24Hr Cd] 360 mg PO DAILY 08/21/16 [History] Flecainide 100 mg PO Q12HR 08/21/16 [History] Insulin Glargine [Lantus] 27 unit SQ HS 08/21/16 [History] Insulin LISPRO [Humalog] 7 - 10 unit SQ TID PRN 08/21/16 [History] Losartan Potassium [Cozaar] 100 mg PO DAILY 08/21/16 [History] Ergocalciferol (VITAMIN D2) [Vitamin D2] 50,000 unit PO QWEEK 04/22/17 [History] 3 Allergy/AdvReac Type Severity Reaction Status Date / Time Penicillins [PCN] Allergy Anaphylaxis Verified 04/22/17 08:49 Sulfa (Sulfonamide Allergy Hives Verified 04/22/17 08:49 Antibiotics) All Systems Review: A 10-system review of systems was performed and is negative for pertinent findings except as documented above in the HPI. - Cardiovascular Cardiovascular: as per HPI, irregular heart rhythm, palpitations, rapid heart rate Physical Examination Vital Signs, Last 4 Hours Temp Pulse Resp BP Pulse Ox 04/24/17 11:24 97.8 F 69 12 122/86 98 General: Conversant, No Apparent Distress HEENT: Atraumatic, Normocephaly, Mucus Membranes Moist Neck: No JVD, Normal carotid pulses Cardiac: Normal S1 and S2, No Murmur, Other (Irregularly, irregular. ) Lungs: Normal Breath Sounds, No Wheeze, Rales, Rhonchi Neuro: Alert and responsive, No focal deficits noted Abdomen: Soft, Non-Tender Skin: No rashes noted on visualized skin Musculoskeletal: No Chest Wall Tenderness Extremities: No Clubbing, No Cyanosis, No Edema, Normal Pulses Results 04/23/17 04:25 04/24/17 05:07 Lab Results Active Medications Acetaminophen (Tylenol) 650 mg PO Q6HR PRN PRN Reason: Mild Pain (1-3) Stop: 10/22/17 11:56 Hydrocodone Bitart/Acetaminophen ([place] 5-325 Mg) 1 tab PO Q4HR PRN PRN Reason: Moderate Pain (4-6) Stop: 10/22/17 11:56 Aspirin (Aspirin) 81 mg PO DAILY [facility] Stop: 10/23/17 09:01 Last Admin: 04/24/17 09:10 Dose: 81 mg Atorvastatin Calcium (Lipitor) 80 mg PO HS [facility] Stop: 10/23/17 21:01 Last Admin: 04/23/17 21:36 Dose: 80 mg Dabigatran (Pradaxa) 150 mg PO BID [facility] Stop: 10/22/17 21:01 Last Admin: 04/24/17 09:11 Dose: 150 mg Dextrose/Water (Dextrose 50% (Syg)) 25 ml IVP AD PRN PRN Reason: Hypoglycemia Stop: 10/22/17 12:41 Diltiazem HCl (Cardizem) 30 mg PO Q6HR PRN PRN Reason: Heart Rate- High Stop: 10/22/17 18:01 Diltiazem HCl (Cardizem Cd) 360 mg PO DAILY [facility] Stop: 10/23/17 09:01 Last Admin: 04/24/17 09:11 Dose: 360 mg Ergocalciferol (Drisdol (50,000 Unit)) 50,000 unit PO QWEEK [facility] Stop: 10/28/17 09:01 Flecainide Acetate (Flecainide) 100 mg PO Q12HR [facility] Stop: 10/22/17 18:01 Last Admin: 04/24/17 09:10 Dose: 100 mg Glucagon (Glucagen) 1 mg IM ONCE PRN PRN Reason: Hypoglycemia Stop: 10/22/17 12:41 Glucose (Gluctose) 15 gm PO ONCE PRN PRN Reason: Hypoglycemia Stop: 10/22/17 12:41 Glucose (Gluctose) 30 gm PO ONCE PRN PRN Reason: Hypoglycemia Stop: 10/22/17 12:41 Dextrose (Dextrose 5%) 1,000 mls @ 100 mls/hr IVC .Q10H PRN PRN Reason: HYPOGLYCEMIA Stop: 10/22/17 12:41 Insulin Detemir (Levemir) 27 unit SQ HS [facility] Stop: 10/22/17 21:01 Last Admin: 04/23/17 21:42 Dose: Not Given Insulin Human Lispro (Humalog) 0 units SQ TIDAC [facility] PRN Reason: Protocol Stop: 10/22/17 14:01 Last Admin: 04/24/17 12:55 Dose: 4 units Insulin Human Lispro (Humalog) 0 units SQ HS [facility] PRN Reason: Protocol Stop: 10/22/17 21:01 Last Admin: 04/23/17 21:38 Dose: Not Given Losartan Potassium (Cozaar) 100 mg PO DAILY [facility] Stop: 10/23/17 09:01 Last Admin: 04/24/17 09:11 Dose: 100 mg Metoprolol Tartrate (Lopressor) 25 mg PO BID [facility] Stop: 10/23/17 21:01 Last Admin: 04/23/17 21:36 Dose: 25 mg Morphine Sulfate (Morphine Sulfate) 2 mg IVP Q4HR PRN PRN Reason: Severe Pain (7-10) Stop: 10/22/17 11:56 Naloxone HCl (Narcan) 0.4 mg IVP Q2MIN PRN PRN Reason: Opioid Reversal Stop: 10/22/17 11:56 Ondansetron HCl (Zofran) 4 mg IVP Q8HR PRN PRN Reason: Nausea And Vomiting Stop: 10/22/17 11:56 Pantoprazole Sodium (Protonix) 40 mg IVP BID [facility] Stop: 10/22/17 21:01 Last Admin: 04/24/17 09:10 Dose: 40 mg Laboratory Tests 04/22/17 04/22/17 04/22/17 09:10 09:10 14:31 Hgb Potassium Creatinine 1.22 H Magnesium Troponin I 0.01 0.01 Triglycerides Cholesterol LDL Cholesterol, Calc HDL Cholesterol TSH 3.220 04/22/17 04/23/17 04/23/17 22:37 04:25 04:25 Hgb 13.0 Potassium Creatinine Magnesium 2.1 Troponin I 0.01 Triglycerides 202 H Cholesterol 226 H LDL Cholesterol, Calc 126 H HDL Cholesterol 60 H TSH 04/24/17 05:07 Hgb Potassium 4.4 Creatinine 1.12 H Magnesium Troponin I Triglycerides Cholesterol LDL Cholesterol, Calc HDL Cholesterol TSH - Imaging and Cardiology Chest Xray: report reviewed Stress Test: report reviewed Echo: report reviewed - EKG Interpretation EKG results cardiology: personally reviewed (ECG with atrial fibrillation RVR, HR 122.), other (Telemetry reviewed with average HR 64, atrial fibrillation. Minimum HR 52 at 0258. Longest pause 2.4 seconds.) Consult Discharge Plan - Plan Referrals: Americo Arguello Jr, MD [Primary Care Provider] - 04/29/17 11:00 am <Jeanna Sinclair - Last Filed: 04/25/17 09:56> Date of Encounter: 04/25/17 Assessment and Plan Discussion w patient/family: The assessment and plan as outlined above was discussed with the patient and/or family members who expressed understanding and agreement. All questions were answered. Thank you for involving us in the care of your patient. Please call with any questions. History of Present Illness History of present illness: Ms. Marquez is a 71 year old female All Systems Review: A 10-system review of systems was performed and is negative for pertinent findings except as documented above in the HPI. Physical Examination Vital Signs, Last 4 Hours Temp Pulse Resp BP Pulse Ox 04/25/17 07:05 97.5 F L 73 15 116/66 98 Results 04/23/17 04:25 04/25/17 04:22 Lab Results 04/25/17 04:22 Sodium 140 Potassium 4.2 Chloride 108 Carbon Dioxide 25 BUN 30 H Creatinine 1.08 Glucose 99 Calcium 9.7 - Attending Attestation I examined this patient and my medical decision-making was reviewed with the Resident Physician. I agree with the documented findings, disposition and treatment plan.
--- NOTE | 2017-04-24 16:43 | Internal Med Progress Note ---
<KinayleenCollins - Last Filed: 04/24/17 16:40> Date of Encounter: 04/24/17 Time of Encounter: 07:45 - Assessment and plan (1) Atrial fibrillation with RVR Current Visit: Yes Status: Acute Assessment and plan: Patient has history of A fib with RVR Patient is on Cardiazem and Flecianide for rate control at home. Patient was taken off of cardiazem drip and was restarted on home meds. Stress test today showed: "Pharmacologic stress ECG is non-diagnostic for ischemia due to submaximal HR. Gated EF > 70%. Small sized, mild intensity, reversible apical lateral defect. Although I suspect this is artifact, ischemia cannot be excluded. Perfusion imaging was negative for infarct." Cardiology was consulted. Cardiology increased atient's flecinade and discontnued metoprolol Cardiology will consult electrophyiologist tomorrow and possibly Cath the patient. (2) Weakness Current Visit: Yes Status: Acute Assessment and plan: resolved. Likely 2/2 to a fib with RVR -Continue to monitor. (3) Diabetes Current Visit: Yes Status: Chronic Assessment and plan: Chronic, Stable. -Continue diabetic protocol. A1C 6.0 down from 6.2 in August. Qualifiers: Diabetes mellitus type: type 2 Diabetes mellitus complication status: with unspecified complications Diabetes mellitus bait digger insulin use: with bait digger use Qualified Code(s): E11.8 - Type 2 diabetes mellitus with unspecified complications; Z79.4 - senior care (current) use of insulin (4) GERD (gastroesophageal reflux disease) Current Visit: Yes Status: Chronic Assessment and plan: Chronic, Stable. -Continue PPI. Qualifiers: Esophagitis presence: esophagitis presence not specified Qualified Code(s) : K21.9 - Gastro-esophageal reflux disease without esophagitis (5) HLD (hyperlipidemia) Current Visit: Yes Status: Chronic Assessment and plan: Chronic. -Patient's Cholesterol Panel showed Cholesterol 226, LDL 126, VLDL 40, HDL 60, and Triglycerides 202. -Increased patient's Lipitor form 40mg to 80mg. Qualifiers: Hyperlipidemia type: pure hypercholesterolemia Qualified Code(s): E78.00 - Pure hypercholesterolemia, unspecified; E78.0 - Pure hypercholesterolemia (6) HTN (hypertension) Current Visit: Yes Status: Chronic Assessment and plan: Chronic, Stable. -Continue home meds. Qualifiers: Hypertension type: essential hypertension Qualified Code(s): I10 - Essential (primary) hypertension (7) CKD (chronic kidney disease) stage 3, GFR 30-59 ml/min Current Visit: Yes Status: Chronic Assessment and plan: Chronic Stable. -Avoid nephrotoxins -Continue home meds. - Subjective Interval history: Patient reports feeling well. Patient's Stress test today was equivocal so cardiology was consulted. They adjusted her medications and will consult Electro Food Service Specialist tomorrow. They may cath the patient tomorrow. - Constitutional Vitals: Temp Pulse Resp BP Pulse Ox 97.6 F 72 12 138/89 95 04/24/17 15:56 04/24/17 15:56 04/24/17 15:56 04/24/17 15:56 04/24/17 15:56 General appearance: Present: cooperative, A&O X 3, pleasant, no acute distress, obese, answers questions appropriately - Head Head exam: Present: atraumatic, normocephalic - Eye Eye exam: Present: PERRL, conjuntiva pink, sclera anicteric Pupils: Present: PERRL - Neck Neck exam general surgery: Present: supple, trachea midline - Respiratory Respiratory exam: Present: CTAB. Absent: accessory muscle use, rales, rhonchi, wheezes - Cardiovascular Cardiovascular exam: Present: irregular rhythm, +S1, +S2. Absent: diastolic murmur, gallop, rubs, systolic murmur - GI/Abdominal GI/Abdominal exam: Present: normal bowel sounds, soft, no peritoneal signs. Absent: distended, tenderness - Extremities Exam Extremities exam: Present: warm. Absent: calf tenderness, cyanotic, pedal edema - Neurological Exam Neurological exam: Present: alert, oriented X3. Absent: facial droop, speech deficit - Skin Skin exam: Present: dry, intact Internal Medicine: Result - Labs CBC & Chem 7: 04/23/17 04:25 04/24/17 05:07 Labs: BMP 04/24/17 05:07 Sodium 139 Potassium 4.4 Chloride 108 Carbon Dioxide 23 BUN 34 H Creatinine 1.12 H Glucose 163 H Calcium 9.2 - ABG Interpretation ABG results: PT/INR, D-dimer PT 13.1 Seconds (9.4-12.1) H 04/23/17 04:25 Consult Discharge Plan - Plan Referrals: Americo Arguello Jr, MD [Primary Care Provider] - 04/29/17 11:00 am <Hema Heller - Last Filed: 04/24/17 17:52> Date of Encounter: 04/24/17 - Constitutional Vitals: Temp Pulse Resp BP Pulse Ox 97.6 F 72 12 138/89 95 04/24/17 15:56 04/24/17 15:56 04/24/17 15:56 04/24/17 15:56 04/24/17 15:56 Internal Medicine: Result - Labs CBC & Chem 7: 04/23/17 04:25 04/24/17 05:07 Labs: BMP 04/24/17 05:07 Sodium 139 Potassium 4.4 Chloride 108 Carbon Dioxide 23 BUN 34 H Creatinine 1.12 H Glucose 163 H Calcium 9.2 - ABG Interpretation ABG results: PT/INR, D-dimer PT 13.1 Seconds (9.4-12.1) H 04/23/17 04:25 - Attending Attestation I examined this patient and my medical decision-making was reviewed with the Resident Physician. I agree with the documented findings, disposition and treatment plan as described except to the extent set forth below.
[2017-04-24] MEDS: Insulin DETEMIR 100 UNIT/ML X5UNITS SQ SCH (21:20)
[2017-04-25 05:05] LABS: BUN/Creatinine Ratio 28 (6-26); Blood Urea Nitrogen 30 mg/dL (7-20); Calcium 9.7 mg/dL (8.6-10.8); Carbon Dioxide 25 mEq/L (19-29); Chloride 108 mEq/L (98-109); Glucose 99 mg/dL (70-99); Osmolality,Calculated 296 (280-300); Potassium 4.2 mEq/L (3.5-4.5); Sodium 140 mEq/L (136-145); eGFR For African Americans > 60 (> 60); eGFR For Non-African Americans 50 (> 60)
[2017-04-25] MEDS: Insulin LISPRO 300 UNITS/3 ML VIAL SQ SCH ×4 (07:54→22:19)
[2017-04-25] MEDS: Pantoprazole 40 MG VIAL IVP SCH ×2 (08:49→20:55)
[2017-04-25] MEDS: Aspirin 81 MG TAB.CHEW PO SCH (08:49)
[2017-04-25] MEDS: Diltiazem CD (24hr) 180 MG CAPSULE PO SCH (08:52)
--- NOTE | 2017-04-25 11:36 | Electrophysiology Consult Note ---
Date of Encounter: 04/25/17 Time of Encounter: 11:33 Assessment and Plan (1) Paroxysmal atrial fibrillation Current Visit: Yes Status: Chronic Per EP: -Known PAF. -ECG 04/24/171945 A-Fib, rate 68, QRS 117ms, QT/QTc 423/441ms. -On cardizem CD 360mg and flecainide 150mg BID. -was a.fib RVR on admission. HRs currently controlled, however remains in atrial fibrillation. 24 hr tele AVG HR 66. -On pradaxa for anticoagulation. -Echo with LVEF 60-65%, indeterminate diastolic function, no significant valvular dysfunction, all hurst with normal motion. -Flecanide was increased to 150mg Q12 hours yesterday, creatinine clearance 52. Pt has received 2 doses of increased Flecainide. -Repeat EKG this AM and tomorrow AM. -Concerning with pt being on Flecainide given stress test yesterday showing a small defect in apical lateral region in which ischemia could not be ruled out. Should not be on Flecainide with CAD. -Recommend [facility] to r/o CAD. -Pending cath results, if negative--continue Flecainide and will make NPO after midnight tonight for JESUS/DCCV tomorrow AM. Will need JESUS since Pradaxa dose was held this AM for [facility]. -Further recommendations following [facility]. (2) Abnormal stress test Current Visit: Yes Status: Acute Per cardiology: -Nuclear stress yesterday with small sized, mild intensity, reversible apical lateral defect. Suspected due to artifact, however ischemia could not be ruled out. -Denies chest pain, shortness of breath, or worsening fatigue. -On asa, statin, beta angel -ECG with no ischemic changes. -Troponins negative x3. -No personal hx of CAD, but multiple risk factors--HTN, HLD, DM, carotid disease s/p CEA. -Recommend [facility] to r/o CAD since she is on Flecainide for PAF. R/B/A discussed. Pt agrees to proceed. [facility] today. Received Pradaxa yesterday evening, but held this AM. Interventionalist aware. Discussion w patient/family: The assessment and plan as outlined above was discussed with the patient and/or family members who expressed understanding and agreement. All questions were answered. Thank you for involving us in the care of your patient. Please call with any questions. I will discuss all the above with Dr. Aniket Siu and make changes as necessary. History of Present Illness Consult date: 04/25/17 Requesting physician: Criselda Loza Consult reason: Flecainide recommendations Chief complaint: palpitations History of present illness: Ms. Marquez is a 71 year old female with a relevant past medical history of paroxysmal atrial fibrillation on Pradaxa and Flecainide, HTN, DM, carotid stenosis with CEA, hyperlipidemia. Patient states she was at home and had palpitations and she noticed her HR was elevated. Patient presented to [facility] and was noted to be in atrial fibrillation with RVR. Patient denies chest pain or shortness of breath. Patient admits to fatigue, however states this is about baseline. BB added. She was seen by general cardiology and Flecainide was increased to 150mg BID in attempt to restore SR. Stress test was obtained by primary team--showed small sized, mild intensity, reversible apical lateral defect. Suspected due to artifact, but could not rule out ischemic. Concerning given she should not be on Flecainide with CAD. EP consulted for further recommendations. Echo EF 60-65%. No significant valvular dysfunction and normal wall motion. Past Med Surg Social Fam HX - Past Medical History Medical history: arthritis, atrial fibrillation, diabetes, GERD, hyperlipidemia , hypertension Psychiatric history: no psych history - Past Surgical History Surgical History: carotid endarterectomy (Right), cataract (Bilateral), orthopedic, other (Bilateral shoulder, bilateral carpal tunnel), other - Social History Smoking Status: Never smoker Smokeless Tobacco Status: No Alcohol use: none Drug use: none - Family History Father Race: Family Member Ethnicity: Non- Living Status: Age at : 62 Cause of : [place] Hx Family Cardiac Disorders: Yes (NV) Hx Family Endocrine Disorder: Yes (DM) Mother Race: Family Member Ethnicity: Non- Living Status: Age at : 89 Cause of : HD Hx Family Cardiac Disorders: Yes (HD, HTN) Hx Family Endocrine Disorder: Yes (DM) Sister Race: Family Member Ethnicity: Non- Living Status: Still Living Hx Family Endocrine Disorder: Yes (DM) Medications and Allergies Aspirin 81 mg PO DAILY 08/21/16 [History] Atorvastatin [Lipitor] 40 mg PO HS 08/21/16 [History] Dabigatran [Pradaxa] 150 mg PO BID 08/21/16 [History] Diltiazem HCl [Diltiazem 24Hr Cd] 360 mg PO DAILY 08/21/16 [History] Flecainide 100 mg PO Q12HR 08/21/16 [History] Insulin Glargine [Lantus] 27 unit SQ HS 08/21/16 [History] Insulin LISPRO [Humalog] 7 - 10 unit SQ TID PRN 08/21/16 [History] Losartan Potassium [Cozaar] 100 mg PO DAILY 08/21/16 [History] Ergocalciferol (VITAMIN D2) [Vitamin D2] 50,000 unit PO QWEEK 04/22/17 [History] 3 Allergy/AdvReac Type Severity Reaction Status Date / Time Penicillins [PCN] Allergy Anaphylaxis Verified 04/22/17 08:49 Sulfa (Sulfonamide Allergy Hives Verified 04/22/17 08:49 Antibiotics) All Systems Review: A 10-system review of systems was performed and is negative for pertinent findings except as documented above in the HPI. - Constitutional Constitutional: fatigue - Cardiovascular Cardiovascular: palpitations Physical Examination Vital Signs, Last 4 Hours Temp Pulse Resp BP Pulse Ox 04/25/17 11:29 97.5 F L 96 15 123/79 98 Vital Signs Temp Pulse Resp BP Pulse Ox 04/25/17 11:29 97.5 F L 96 15 123/79 98 04/25/17 07:05 97.5 F L 73 15 116/66 98 04/25/17 04:10 97.5 F L 79 16 120/54 98 04/24/17 19:31 98.0 F 60 16 118/70 97 04/24/17 15:56 97.6 F 72 12 138/89 95 Intake and Output 04/24/17 04/25/17 04/25/17 23:59 07:59 15:59 Intake Total 120 / 120 0 / 0 0 / 0 Output Total 0 / 0 0 / 0 Balance 120 / 120 0 / 0 0 / 0 Intake: Oral 120 / 120 0 / 0 0 / 0 Output: Urine 0 / 0 0 / 0 Other: Meal Dinner Breakfast Percent of Meal Consumed 100% 0% # Voids 0 0 Weight 71.4 kg 71.4 kg Blood Glucose* 332 105 154 Patient Weight 04/25/17 23:59 Weight 71.4 kg General: Conversant, No Apparent Distress HEENT: Atraumatic, Normocephaly, Mucus Membranes Moist Neck: No JVD, Normal carotid pulses Cardiac: Other (irregularly irregular) Lungs: Normal Breath Sounds, No Wheeze, Rales, Rhonchi Neuro: Alert and responsive, No focal deficits noted Abdomen: Soft, Non-Tender Skin: No rashes noted on visualized skin Musculoskeletal: No Chest Wall Tenderness Extremities: No Clubbing, No Cyanosis, No Edema, Normal Pulses Results 04/23/17 04:25 04/25/17 04:22 Lab Results 04/25/17 04:22 Sodium 140 Potassium 4.2 Chloride 108 Carbon Dioxide 25 BUN 30 H Creatinine 1.08 Glucose 99 Calcium 9.7 BMP 04/25/17 Range/Units 04:22 Sodium 140 (136-145) mEq/L Potassium 4.2 (3.5-4.5) mEq/L Chloride 108 (98-109) mEq/L Carbon Dioxide 25 (19-29) mEq/L BUN 30 H (7-20) mg/dL Creatinine 1.08 (0.57-1.11) mg/dL Glucose 99 (70-99) mg/dL Calcium 9.7 (8.6-10.8) mg/dL Active Medications Acetaminophen (Tylenol) 650 mg PO Q6HR PRN PRN Reason: Mild Pain (1-3) Stop: 10/22/17 11:56 Hydrocodone Bitart/Acetaminophen ([place] 5-325 Mg) 1 tab PO Q4HR PRN PRN Reason: Moderate Pain (4-6) Stop: 10/22/17 11:56 Aspirin (Aspirin) 81 mg PO DAILY [facility] Stop: 10/23/17 09:01 Last Admin: 04/25/17 08:49 Dose: 81 mg Atorvastatin Calcium (Lipitor) 80 mg PO HS [facility] Stop: 10/23/17 21:01 Last Admin: 04/24/17 21:21 Dose: 80 mg Dabigatran (Pradaxa) 150 mg PO BID [facility] Stop: 10/22/17 21:01 Last Admin: 04/24/17 21:21 Dose: 150 mg Dextrose/Water (Dextrose 50% (Syg)) 25 ml IVP AD PRN PRN Reason: Hypoglycemia Stop: 10/22/17 12:41 Diltiazem HCl (Cardizem) 30 mg PO Q6HR PRN PRN Reason: Heart Rate- High Stop: 10/22/17 18:01 Diltiazem HCl (Cardizem Cd) 360 mg PO DAILY [facility] Stop: 10/23/17 09:01 Last Admin: 04/25/17 08:52 Dose: 360 mg Ergocalciferol (Drisdol (50,000 Unit)) 50,000 unit PO QWEEK [facility] Stop: 10/28/17 09:01 Flecainide Acetate (Flecainide) 150 mg PO Q12HR [facility] Stop: 10/24/17 18:01 Last Admin: 04/25/17 06:56 Dose: 150 mg Glucagon (Glucagen) 1 mg IM ONCE PRN PRN Reason: Hypoglycemia Stop: 10/22/17 12:41 Glucose (Gluctose) 15 gm PO ONCE PRN PRN Reason: Hypoglycemia Stop: 10/22/17 12:41 Glucose (Gluctose) 30 gm PO ONCE PRN PRN Reason: Hypoglycemia Stop: 10/22/17 12:41 Dextrose (Dextrose 5%) 1,000 mls @ 100 mls/hr IVC .Q10H PRN PRN Reason: HYPOGLYCEMIA Stop: 10/22/17 12:41 Insulin Detemir (Levemir) 27 unit SQ HS [facility] Stop: 10/22/17 21:01 Last Admin: 04/24/17 21:20 Dose: 27 unit Insulin Human Lispro (Humalog) 0 units SQ TIDAC [facility] PRN Reason: Protocol Stop: 10/22/17 14:01 Last Admin: 04/25/17 07:54 Dose: Not Given Insulin Human Lispro (Humalog) 0 units SQ HS [facility] PRN Reason: Protocol Stop: 10/22/17 21:01 Last Admin: 04/24/17 21:21 Dose: 300 units Losartan Potassium (Cozaar) 100 mg PO DAILY [facility] Stop: 10/23/17 09:01 Last Admin: 04/25/17 08:49 Dose: 100 mg Morphine Sulfate (Morphine Sulfate) 2 mg IVP Q4HR PRN PRN Reason: Severe Pain (7-10) Stop: 10/22/17 11:56 Naloxone HCl (Narcan) 0.4 mg IVP Q2MIN PRN PRN Reason: Opioid Reversal Stop: 10/22/17 11:56 Ondansetron HCl (Zofran) 4 mg IVP Q8HR PRN PRN Reason: Nausea And Vomiting Stop: 10/22/17 11:56 Pantoprazole Sodium (Protonix) 40 mg IVP BID [facility] Stop: 10/22/17 21:01 Last Admin: 04/25/17 08:49 Dose: 40 mg - Imaging and Cardiology Stress Test: report reviewed Echo: report reviewed - EKG Interpretation EKG results cardiology: other (12 hr tele AVG HR 66, A-Fib.) Consult Discharge Plan - Plan Referrals: Americo Arguello Jr, MD [Primary Care Provider] - 04/29/17 11:00 am
[2017-04-25] MEDS: *HR* Dabigatran 150 MG CAPSULE PO SCH ×2 (12:26→20:54)
[2017-04-25] MEDS ORDERED: *HR* Midazolam HCl 2 MG/2 ML VIAL ONE (13:12)
[2017-04-25] MEDS ORDERED: Heparin 1,000 UNITS/500 mL NS 500 ML ONE (13:13)
[2017-04-25] MEDS ORDERED: 0.9 % Sodium Chloride 1,000 ML ONE ×2 (13:13→13:14)
[2017-04-25] MEDS ORDERED: *HR* Heparin 10,000 UNIT/10 ML VIAL ONE (13:13)
[2017-04-25] MEDS ORDERED: Nitroglycerin 1,000 MCG/10 ML VIAL IV ONE (13:13)
--- NOTE | 2017-04-25 13:18 | Internal Med Progress Note ---
<KinayleenCollins - Last Filed: 04/25/17 13:14> Date of Encounter: 04/25/17 Time of Encounter: 08:00 - Assessment and plan (1) Atrial fibrillation with RVR Current Visit: Yes Status: Acute Assessment and plan: Patient has history of A fib with RVR Patient is on Cardiazem and Flecianide for rate control at home. Patient was taken off of cardiazem drip and was restarted on home meds. Stress test today showed: "Pharmacologic stress ECG is non-diagnostic for ischemia due to submaximal HR. Gated EF > 70%. Small sized, mild intensity, reversible apical lateral defect. Although I suspect this is artifact, ischemia cannot be excluded. Perfusion imaging was negative for infarct." Cardiology was consulted. Cardiology increased atient's flecinade and discontinued metoprolol EP was consulted. Patient will have LHC today If normal patient will have JESUS Cardioversion tomorrow. (2) Weakness Current Visit: Yes Status: Resolved Assessment and plan: resolved. Likely 2/2 to a fib with RVR Continue to monitor. (3) Diabetes Current Visit: Yes Status: Chronic Assessment and plan: Chronic, Stable. Continue diabetic protocol. A1C 6.0 down from 6.2 in August. 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 Continue PPI. Qualifiers: Esophagitis presence: esophagitis presence not specified Qualified Code(s) : K21.9 - Gastro-esophageal reflux disease without esophagitis (5) HLD (hyperlipidemia) Current Visit: Yes Status: Chronic Assessment and plan: Chronic. Patient's Cholesterol Panel showed Cholesterol 226, LDL 126, VLDL 40, HDL 60, and Triglycerides 202. Increased patient's Lipitor form 40mg to 80mg. Qualifiers: Hyperlipidemia type: pure hypercholesterolemia Qualified Code(s): E78.00 - Pure hypercholesterolemia, unspecified; E78.0 - Pure hypercholesterolemia (6) HTN (hypertension) Current Visit: Yes Status: Chronic Assessment and plan: Chronic, Stable. Continue home meds. Qualifiers: Hypertension type: essential hypertension Qualified Code(s): I10 - Essential (primary) hypertension (7) CKD (chronic kidney disease) stage 3, GFR 30-59 ml/min Current Visit: Yes Status: Chronic Assessment and plan: Chronic Stable. Avoid nephrotoxins Continue home meds. - Subjective Interval history: Patient reports feeling well. Patient to have LHC today if normal will have JESUS cardioversion tomorrow. - Constitutional Vitals: Temp Pulse Resp BP Pulse Ox 97.5 F L 96 15 123/79 98 04/25/17 11:29 04/25/17 11:29 04/25/17 11:29 04/25/17 11:29 04/25/17 11:29 General appearance: Present: cooperative, A&O X 3, pleasant, no acute distress, obese, answers questions appropriately - Head Head exam: Present: atraumatic, normocephalic - Eye Eye exam: Present: PERRL, conjuntiva pink, sclera anicteric Pupils: Present: PERRL - Neck Neck exam general surgery: Present: supple, trachea midline. Absent: lymphadenopathy - Respiratory Respiratory exam: Present: CTAB. Absent: accessory muscle use, rales, rhonchi, wheezes - Cardiovascular Cardiovascular exam: Present: irregular rhythm, +S1, +S2. Absent: diastolic murmur, gallop, rubs, systolic murmur - GI/Abdominal GI/Abdominal exam: Present: normal bowel sounds, soft, no peritoneal signs. Absent: distended, tenderness - Extremities Exam Extremities exam: Present: warm. Absent: calf tenderness, cyanotic, pedal edema - Neurological Exam Neurological exam: Present: alert, oriented X3, no focal deficits. Absent: facial droop, speech deficit - Skin Skin exam: Present: dry, intact Internal Medicine: Result - Labs CBC & Chem 7: 04/23/17 04:25 04/25/17 04:22 Labs: BMP 04/25/17 04:22 Sodium 140 Potassium 4.2 Chloride 108 Carbon Dioxide 25 BUN 30 H Creatinine 1.08 Glucose 99 Calcium 9.7 - ABG Interpretation ABG results: PT/INR, D-dimer PT 13.1 Seconds (9.4-12.1) H 04/23/17 04:25 Consult Discharge Plan - Plan Referrals: Americo Arguello Jr, MD [Primary Care Provider] - 04/29/17 11:00 am <Hema Heller P - Last Filed: 04/25/17 18:09> Date of Encounter: 04/25/17 - Constitutional Vitals: Temp Pulse Resp BP Pulse Ox 97.5 F L 79 15 138/73 98 04/25/17 11:29 04/25/17 17:00 04/25/17 11:29 04/25/17 17:00 04/25/17 11:29 Internal Medicine: Result - Labs CBC & Chem 7: 04/23/17 04:25 04/25/17 04:22 Labs: BMP 04/25/17 04:22 Sodium 140 Potassium 4.2 Chloride 108 Carbon Dioxide 25 BUN 30 H Creatinine 1.08 Glucose 99 Calcium 9.7 - ABG Interpretation ABG results: PT/INR, D-dimer PT 13.1 Seconds (9.4-12.1) H 04/23/17 04:25 - Attending Attestation I examined this patient and my medical decision-making was reviewed with the Resident Physician. I agree with the documented findings, disposition and treatment plan as described except to the extent set forth below.
--- NOTE | 2017-04-25 13:56 | Pre-Sedation Evaluation ---
Pre-sedation evaluation - Pre-sedation checklist Date of procedure: 04/25/17 Procedure: Left heart cath Recent Vitals: Last Vital Signs Temp 97.5 F L 04/25/17 11:29 Pulse 96 04/25/17 11:29 Resp 15 04/25/17 11:29 BP 123/79 04/25/17 11:29 Pulse Ox 98 04/25/17 11:29 H&P (including ROS) documented in medical record: Yes Previous reaction to sedatives/anesthetics: No Dietary Status: NPO after Midnight Airway Assessment: Patient can open mouth completely, TMJ function normal Dentition: dentures removed Possible difficult airway: No ASA Classification *see protocol: CLASS I-Normal, healthy patient, CLASS III- Severe systemic disease Plan of Care: Pt appropriate candidate for procedure/moderate/conscious sedation , Risks/benefits of procedure/sedation discussed w/ patient/family, If not NPO; Risk of intake outweiged by necessity to perform procedure
[2017-04-25] MEDS ORDERED: 0.9 % Sodium Chloride 1,000 ML IVC SCH (14:30)
--- NOTE | 2017-04-25 14:53 | Invasive Diagnostic Lab Proc ---
Name: Yaa Marquez Date of Study: 04/25/2017 Date: 1945 Ht: 64.2in Medical Record#: [id number] Age: 71 Wt: 156.53lb Gender: Female BSA: 1.77 Order #: [id number] BMI: 26.72 Physicians Procedure Physician: Simone Edmond DO Referring MD: Referring MD: Staff Name Position Time In Lauro Milian RT (R) Scrub 01:44 PM Sharon Altman RN Associate [employer] 01:44 PM Dickson Norris RN Monitor 01:44 PM Antonella Montano RN Monitor 01:44 PM Indications Indication Abnormal Test - Stress Procedures Performed Procedure L HRT ARTERY/VENTRICLE ANGIO Pre-Procedure Checklist Informed consent is complete signed and on chart. H&P is on chart. ID band is on and ID verified with patient. Patient NPO for procedure The procedure was described for the patient and questions were answered. ECG is on chart. Plan of Care Patient will tolerate the procedure without complications. Adequate level of comfort will be maintained. Hemodynamics will remain stable Patient will recover from procedure without complications. Respiratory function will be maintained. Cardiac rhythm will remain stable. Patient temperature will be maintained. Patient and/or family have verbalized understanding of the procedure. Patient Education Intravenous Access Time IV Size Location DC'd Fluid/Drip Rate Units RN 01:32 PM 20g 1 1/" Patent On Arrival Lt Antecubital 0.9NaCl Allergies PCN, SULFA Penicillin SULFA (sulfonamide) Penicillins Sulfa (Sulfonamide Antibiotics) Vital Signs Time BP (mmHg) HR (bpm) O2 Sat. RR (bpm) LOC 01:57 PM / % 5 = Fully awake and oriented or at pre-proc level 01:57 PM / % 4 = Oriented but drowsy 01:56 PM 140 / 79 87 99 % 18 02:01 PM 140 / 65 91 98 % 14 02:06 PM 115 / 63 90 100 % 23 02:11 PM 126 / 56 85 100 % 16 02:16 PM 121 / 68 80 100 % 15 02:21 PM 125 / 68 84 100 % 12 02:26 PM 135 / 63 75 100 % 16 02:13 PM / % 4 = Oriented but drowsy 02:28 PM / % 4 = Oriented but drowsy Procedural Medications Time Medication Dose Units Method Given By 01:56 PM Oxygen 2 L/min nasal cannula Sharon Altman RN 01:57 PM Versed 2 mg Intravenous Sharon Altamn RN 02:08 PM Lidocaine 2% 10 ml Subcutaneous Simone Edmond DO ASA Classification: CLASS I- Normal healthy patient Edgardo Score Preprocedure Postprocedure Activity 2- Moves 4 extremities sustained head lift Activity 2- Moves 4 extremities sustained head lift Circulation 2- SBP +/= 20 points of pre-anesthetic level Circulation 2- SBP +/= 20 points of pre-anesthetic level Consciousness 2- Awake and alert oriented x 3 Consciousness 2- Awake and alert oriented x 3 O2 Saturation 2- Able to maintain O2 satruation of 92% on room air O2 Saturation 2- Able to maintain O2 satruation of 92% on room air Respiratory 2- Able to deep breathe and cough well Respiratory 2- Able to deep breathe and cough well Total Score 10 Total Score 10 Contrast Agent: Isovue Diagnostic Contrast: 75 ml Total Contrast: 75 ml Fluoro Dose: 191 mGy Procedure Log Time Note Enter By 01:29 PM CathStat 01:43 PM 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 jcallihan 01:46 PM Christy responded and notified patient is ready 13:46 jcallihan 01:48 PM Hair removed from procedure site in procedure lab using clippers. Bilateral groin prepped with Chloraprep by Lauro Milian RT (R), then patient was draped. Skin intact. jcallihan 01:49 PM Case Delayed no, inpatient jcallihan 01:49 PM Physician arrived 13:49 [facility] 01:[facility] PM Meet and greet completed [facility] 01:49 PM Sign in performed according to hospital policy. [facility] 01:49 PM Procedure start 13:49 [facility] 01:55 PM Vitals capture started with the following parameters, Patient=Adult, Interval=5 min, Initial Jzbuvrqi=811 mmHg, Deflation Rate=5 mmHg, Cuff placed on Left Arm 01:56 PM HR=87 bpm, UPWU=061/79 mmhg, SpO2=99.0 %, Resp=18 B/min 01: PM Time: 13:56 Oxygen on at 2 L/min per nasal cannula by [facility]man RN [facility] PM Time: 13:57 Patient comfortable and pain free: Yes [facility] PM Time: :57LOC: 5 = Fully awake and oriented or at pre-proc level [facility] PM Time: :57 Versed 2 mg Intravenous Given by Sharon Altman RN mark 02:00 PM Pressure channel 2 zeroed. 02:01 PM HR=91 bpm, IYHO=727/65 mmhg, SpO2=98.0 %, Resp=14 B/min 02:06 PM HR=90 bpm, PZHF=649/63 mmhg, DxC3=783.0 %, Resp=23 B/min 02:07 PM Clinical Presentation: Unstable angina jcallan 02:08 PM Time: 14:08 10 ml Lidocaine 2% to right groin Subcutaneous Given by Simone Edmond DO [facility] 02:08 PM Micro-Introducer Kit utilized for sheath placement [facility] 02:10 PM ASA Class CLASS I- Normal healthy patient [facility] 02:11 PM HR=85 bpm, ZZLA=336/56 mmhg, JpU8=415.0 %, Resp=16 B/min, Comment=afib 02:13 PM Time: 13:57LOC: 4 = Oriented but drowsy [facility] :13 PM Time: 13:57 Patient comfortable and pain free: Yes jcallan 02:14 PM Unsuccessful access attempt # 1 into the right Femoral artery. Manual pressure applied to achieve hemostasis.. jcallihan 02:15 PM Unsuccessful access attempt # 2 into the right Femoral artery. Manual pressure applied to achieve hemostasis.. jcallihan 02:15 PM Access obtained by percutaneous puncture. 6Fr 10cm Terumo Burdett sheath placed in right Femoral artery. [id number] jcallihan 02:15 PM 6Fr FR 4 catheter inserted over the wire [facility] jcallihan 02:15 PM Catheter selectively placed in left ventricle jcallihan 02:16 PM HR=80 bpm, GTIU=609/68 mmhg, QkN2=925.0 %, Resp=15 B/min 02:16 PM Bolus angiogram of left Ventricle complete: 10 ml/sec for a total of 10 mls jcallihan 02:16 PM Recorded Pressure: LV, HR=79, Condition=Condition 1 (Left Ventricle) LV 105/-3/6 02:16 PM Recorded Pressure: LV, Ao, HR=80, Condition=Condition 1 (Left Ventricle) LV 114/-6/-1, (Aorta) Ao 116/53/80 02:17 PM RCA angiography performed in multiple views. jcallihan 02:18 PM Recorded Pressure: Ao, HR=80, Condition=Condition 1 (Aorta) Ao 117/49/78 02:18 PM Catheter removed jcallihan 02:19 PM 6Fr FL 4 catheter inserted over the wire [facility] jcallihan 02:19 PM Recorded Pressure: Ao, HR=75, Condition=Condition 1 (Aorta) Ao 113/42/74 02:20 PM LCA angiography performed in multiple views. jcallihan 02:21 PM HR=84 bpm, OZSQ=264/68 mmhg, GyH3=704.0 %, Resp=12 B/min 02:22 PM Bolus angiogram of right Femoral complete: 10 ml/sec for a total of 10 mls jcallihan 02:22 PM Lesion found in Mid RCA. Pre Stenosis: 50 Pre KONSTANTIN Flow: jcallihan 02:22 PM Mid/Distal Left Anterior Descending Coronary Artery and diagonal branches with 40% stenosis. If graft is supplying this area, 0 % stenosis jcallihan 02:22 PM Catheter removed jcallihan 02:23 PM Lesion found in Mid LAD. Pre Stenosis: 40 Pre KONSTANTIN Flow: jcallihan 02:24 PM Coronary Dominance: right jcallihan 02:24 PM Right Coronary, Right Posterior Descending Arteries with Right Posterolateral and Acute Marginal branches with 50 % stenosis. If graft is supplying this area, 0 % stenosis jcallihan 02:24 PM Procedure completed at 14:24 jcallihan 02:24 PM Sign out completed: Radiation Dose 191 mGy Fluoro Time: 2.0 Isovue 370 - 200ml contrast 75 ml given by Simone Edmond DO. Complications: NoneCardiac Rehab Consult needed: NoConfirmed administered medications: Yes jcallihan 02:25 PM Isovue 370 - 200ml,1 Bottle(s) used. jcallihan 02:26 PM HR=75 bpm, YSEE=755/63 mmhg, DkI6=304.0 %, Resp=16 B/min, Comment=afib 02:26 PM Post ECG Atrial Fibrillation jcallihan 02:26 PM Post Blood Pressure 135/63 jcallihan 02:26 PM Information taught Cardiac Cath jcallihan 02:27 PM Education needs Procedure, Plan of Care, and Responsibilities of Patient in Care jcallihan 02:27 PM Learning barriers :None jcallihan 02:27 PM Education Methods Verbal jcallihan 02:27 PM Education evaluation Able to repeat information jcallihan 02:27 PM Plavix, Effient or Brilinta given No jcallihan 02:27 PM Delay to floor No jcallihan 02:27 PM jcallihan 02:28 PM Rounding Cardiology staff to talk to patient family members. jcallihan 02:28 PM Time: 14:13LOC: 4 = Oriented but drowsy jcallihan 02:28 PM Complications: None jcallihan 02:28 PM Fluoro Time: 2 jcallihan 02:28 PM Isovue 370 - 200ml contrast 75 ml given by Simone Edmond DO. jcallihan 02:28 PM Radiation Dose 191 mGy jcallihan 02:35 PM Report given to Eugenia RAMOS Pt taken to [facility] Room #23. 14:35 jcallihan 02:40 PM Arterial sheath pulled using manual compression and V+ Pad for 15 minutes by Sharon Altman RN jcallihsuraj 02:40 PM Site status No bleeding/hematoma - Rt Groin as reported by Sharon Altman RN at 14:40 jcallihan 02:40 PM Opsite applied jcallihan 02:42 PM 14:41 Post Pulses Bilateral DP & PT 1+ jcallihan 02:43 PM Time: 14:28LOC: 4 = Oriented but drowsy jcallihan 02:43 PM Time: 14:28 Patient comfortable and pain free: Yes jcallihan 02:46 PM Patient out of room: 14:46 willy Complications Complication None None Hemodynamics Pressures Site Systolic/A Wave Diastolic/V Wave Mean LV 105 -3 6 LV 114 -6 -1 AO 116 53 80 AO 117 49 78 AO 113 42 74 Post Procedure Information Blood Pressure: 135/63 mmHg Rhythm: Atrial Fibrillation Post procedural instructions were given Closure Device Time Device Success/Fail 04/25/2017 2:42:00 PM Manual Compression Successful Site Checks Time Location Status Staff Sheath In? Note 02:40 PM Rt Groin No bleeding/hematoma Sharon Altman RN Pulses Time Site Pre-Procedure Post-Procedure Note 2:41:00 PM Bilateral DP & PT 1+ 1+ Updated by Dickson Norris RN on 04/25/2017 2:48:07 PM electronically signed on 04/25/2017 2:48:30 PM with status of Final
[2017-04-25] MEDS: Insulin DETEMIR 100 UNIT/ML X5UNITS SQ SCH (22:18)
[2017-04-26 07:01] LABS: BUN/Creatinine Ratio 25 (6-26); Blood Urea Nitrogen 24 mg/dL (7-20); Calcium 9.1 mg/dL (8.6-10.8); Carbon Dioxide 25 mEq/L (19-29); Chloride 109 mEq/L (98-109); Glucose 112 mg/dL (70-99); Osmolality,Calculated 295 (280-300); Potassium 4.5 mEq/L (3.5-4.5); Sodium 140 mEq/L (136-145); eGFR For African Americans > 60 (> 60); eGFR For Non-African Americans 58 (> 60)
[2017-04-26] MEDS: Insulin LISPRO 300 UNITS/3 ML VIAL SQ SCH ×3 (08:11→17:34)
[2017-04-26] MEDS: Diltiazem CD (24hr) 180 MG CAPSULE PO SCH (08:17)
[2017-04-26] MEDS: *HR* Dabigatran 150 MG CAPSULE PO SCH (08:17)
[2017-04-26] MEDS: Aspirin 81 MG TAB.CHEW PO SCH (08:17)
[2017-04-26] MEDS: Pantoprazole 40 MG VIAL IVP SCH (08:18)
--- NOTE | 2017-04-26 09:21 | Event Note ---
Date of Encounter: 04/26/17 Time of Encounter: 09:18 - Cardiology Event Note S/P LHC yesterday with only luminal irregularities. No obstructive CAD. Flecainide was continued--has received 4 doses of increased dose 150mg BID. EKG from yesterday reviewed--stable. QRS 97ms, QT/QTC 368/408ms. Pt remains in A-Fib, rate controlled. Will attempt DCCV today to restore SR. JESUS is necessary due to Pradaxa being held yesterday AM for [facility]. R/B/A to JESUS/DCCV discussed. Pt agrees to proceed. If pt converts to SR, will be okay to d/c home later today. Of note, right femoral access site healing well. No bleeding, hematoma or ecchymosis noted. Renal function stable.
[2017-04-26] MEDS ORDERED: 0.9 % Sodium Chloride 500 ML IVC ONE (13:32)
[2017-04-26] MEDS ORDERED: Tetracaine/Benzocaine/Butamben 200MG/SPRAY (100SPY/BOT) MM ONE (13:32)
[2017-04-26] MEDS ORDERED: *HR* Midazolam HCl 2 MG/2 ML VIAL IVP PRN (13:32)
[2017-04-26] MEDS ORDERED: *HR* Midazolam HCl 5 MG/5 ML VIAL IVP ONE ×3 (13:45→13:46)
[2017-04-26] MEDS: *HR* FentaNYL (PF) 100 MCG/2 ML VIAL IVP PRN ×3 (14:55→15:10)
--- NOTE | 2017-04-26 15:22 | Event Note ---
Date of Encounter: 04/26/17 Time of Encounter: 15:19 - Cardiology Event Note Successful JESUS/DCCV--1 shock at 150J. Post EKG reviewed--SR rate 70, QRS 102ms, QT/QTc 413/434ms. Continue increased Flecainide 150mg BID. Continue Pradaxa and Cardizem. Okay to be discharged home later this evening. Follow-up in 2-3 weeks--already coordinated. Cardiology signing off. Reconsult PRN.
--- NOTE | 2017-04-26 15:37 | Discharge Summary ---
<Collins Perez - Last Filed: 04/26/17 16:12> Date of Encounter: 04/26/17 Time of Encounter: 08:30 - Discharge Diagnosis (1) Atrial fibrillation with RVR Priority: Primary Status: Acute (2) Weakness Priority: Secondary Status: Resolved (3) Diabetes Priority: Secondary Status: Chronic Qualifiers: Diabetes mellitus type: type 2 Diabetes mellitus complication status: with unspecified complications Diabetes mellitus inspection engineer insulin use: with inspection engineer use Qualified Code(s): E11.8 - Type 2 diabetes mellitus with unspecified complications; Z79.4 - halfway (current) use of insulin (4) GERD (gastroesophageal reflux disease) Priority: Secondary Status: Chronic Qualifiers: Esophagitis presence: esophagitis presence not specified Qualified Code(s) : K21.9 - Gastro-esophageal reflux disease without esophagitis (5) HLD (hyperlipidemia) Priority: Secondary Status: Chronic Qualifiers: Hyperlipidemia type: pure hypercholesterolemia Qualified Code(s): E78.00 - Pure hypercholesterolemia, unspecified; E78.0 - Pure hypercholesterolemia (6) HTN (hypertension) Priority: Secondary Status: Chronic Qualifiers: Hypertension type: essential hypertension Qualified Code(s): I10 - Essential (primary) hypertension (7) CKD (chronic kidney disease) stage 3, GFR 30-59 ml/min Priority: Secondary Status: Chronic - Discharge Medications Prescriptions: Flecainide 150 mg PO Q12HR #90 tablet Atorvastatin [Lipitor] 80 mg PO HS #60 tablet Home Medications: Aspirin 81 mg PO DAILY 08/21/16 [History] Dabigatran [Pradaxa] 150 mg PO BID 08/21/16 [History] Diltiazem HCl [Diltiazem 24Hr Cd] 360 mg PO DAILY 08/21/16 [History] Insulin Glargine [Lantus] 27 unit SQ HS 08/21/16 [History] Insulin LISPRO [Humalog] 7 - 10 unit SQ TID PRN 08/21/16 [History] Losartan Potassium [Cozaar] 100 mg PO DAILY 08/21/16 [History] Ergocalciferol (VITAMIN D2) [Vitamin D2] 50,000 unit PO QWEEK 04/22/17 [History] Atorvastatin [Lipitor] 80 mg PO HS #60 tablet 04/26/17 [Rx] Flecainide 150 mg PO Q12HR #90 tablet 04/26/17 [Rx] Allergies/Adverse Reactions: 3 Allergy/AdvReac Type Severity Reaction Status Date / Time Penicillins [PCN] Allergy Anaphylaxis Verified 04/22/17 08:49 Sulfa (Sulfonamide Allergy Hives Verified 04/22/17 08:49 Antibiotics) Procedures/tests Complete & Pending: Procedures Performed prior 72 hours Category Date Time Status CL Cardiac Catheterization [CL] Routine Academic Interventionist 04/25/17 11:57 Ordered NM aguilar perf SPECT multi [NM] Routine Exams 04/24/17 06:00 Taken ECG 12 lead ECG [ECG] AM 0600 Y 04/25/17 06:00 Ordered ECG 12 lead ECG [ECG] Routine Y 04/24/17 19:46 Completed EKG [ECG 12 lead ECG] [ECG] Stat Y 04/25/17 12:02 Completed EV brian guided cardioversion Routine Y 04/26/17 09:22 Ordered SP pharm nuclear stress Routine Y 04/24/17 07:30 Completed CXR: "FINDINGS: The lungs are without acute focal process. There is no effusion or pneumothorax. The cardiomediastinal silhouette is without acute process. The osseous structures are without acute process. XR/XR chest 1V portable IMPRESSION: No acute process." ECHO: "Impressions: Normal LV systolic function, LVEF 60-65%. Indeterminate diastolic function due to atrial fibrillation. Normal right ventricular size and function. No significant valvular dysfunction. No evidence of pulmonary hypertension." Stress Test: "Impression: Pharmacologic stress ECG is non-diagnostic for ischemia due to submaximal HR. Gated EF > 70%. Small sized, mild intensity, reversible apical lateral defect. Although I suspect this is artifact, ischemia cannot be excluded. Perfusion imaging was negative for infarct." LHC: "LHC yesterday with only luminal irregularities. No obstructive CAD." BRIAN/DCCV: "Successful BRIAN/DCCV--1 shock at 150J. Post EKG reviewed--SR rate 70, QRS 102ms , QT/QTc 413/434ms. " Date of admission: 04/22/17 17:01 Primary care physician: Americo Arguello Jr, MD Consults: 04/24/17 13:37 Consult to Cardiology [CONS] Routine Comment: Consulting Provider: Cardiology Grundy Reason for Consult: a fib with RVR, Stress test showed "Pharmacologic stress ECG is non-diagnostic for ischemia due to submaximal HR. Gated EF > 70%. Small sized, mild intensity, reversible apical lateral defect. Although I suspect this is artifact, ischemia cannot be excluded. Perfusion imaging was negative for infarct." Time Notified: 13:40 Call Completed: Yes 04/25/17 07:58 Consult to Electrophysiology (EP) [CONS] Routine Consulting Provider: Electrophysiology Grundy Reason for Consult: a.fib, on flecanide Call Completed: Yes Discharging clinician: Collins Perez Anticipated date of discharge: 04/26/17 - Patient Status Disposition: Home, Self-Care Condition: Good Functional capacity at discharge: independent ambulation Overall status at discharge: patient is back to baseline - Discharge Instructions Follow Up With: Americo Arguello Jr, MD [Primary Care Provider] - 04/29/17 11:00 am Additional Instructions: Please follow up with your primary care provider within 1 week. Please follow up with cardiology as already scheduled. Please resume all your home medications with the new increased dose of your atorvastatin and flecanide. Please return tot hospital if you experience any new or worsening symptoms. - Diet and Activity Activity: resume usual activities as tolerated Diet: diabetic diet Interval History: Patient reports feeling well. She is looking forward to having her cardioversion completed and going home. No complaints at this time. Hospital course: Ms. Marquez is a 71 year old female with medical history of atrial fib, IDDM, GERD , hyperlipidemia, and hypertension who reported to the hospital c/o generalized weakeness, dizziness, and palpitations. Patient was found to be in a fib with RVR. Patient started on cardizaem drip and then transitioned back to her home cardiazem and flecainide once her HR was undercontrol. Patient became tachycardic on her home meds so cardiology increased her home flecainide which has controlled her rate since. We worked up the patient to determine the cause of her a fib with RVR. She received an echo which was normal. She got a stress test which was equivocal so cardiology performed a LHC. Her LHC did not show any occlusions large enough to require intervention so she was scheduled for BRIAN /Cardioversion. BRIAN/Cardioversion was performed successfully and patient returned to [facility] and discharged home. - Time Spent with Patient Total time spent providing and/or coordinating discharge services: 40 minutes - Constitutional Vitals: Temp Pulse Resp BP Pulse Ox 97.3 F L 76 14 139/87 96 04/26/17 13:33 04/26/17 13:33 04/26/17 13:33 04/26/17 13:33 04/26/17 13:33 General appearance: Present: cooperative, A&O X 3, pleasant, no acute distress, obese, answers questions appropriately - Head Head exam: Present: atraumatic, normocephalic - Eye Eye exam: Present: PERRL, conjuntiva pink, sclera anicteric Pupils: Present: PERRL - Neck Neck exam general surgery: Present: supple, trachea midline - Respiratory Respiratory exam: Present: CTAB. Absent: accessory muscle use, rales, rhonchi, wheezes - Cardiovascular Cardiovascular exam: Present: irregular rhythm, +S1, +S2. Absent: diastolic murmur, gallop, rubs, systolic murmur - GI/Abdominal GI/Abdominal exam: Present: normal bowel sounds, soft, no peritoneal signs. Absent: distended, tenderness - Extremities Exam Extremities exam: Present: warm. Absent: calf tenderness, cyanotic, pedal edema - Neurological Exam Neurological exam: Present: alert, oriented X3, no focal deficits. Absent: facial droop, speech deficit - Skin Skin exam: Present: dry, intact <Pina,Hema P - Last Filed: 04/26/17 16:48> Date of Encounter: 04/26/17 Procedures/tests Complete & Pending: Procedures Performed prior 72 hours Category Date Time Status CL Cardiac Catheterization [CL] Routine Academic Interventionist 04/25/17 11:57 Ordered NM aguilar perf SPECT multi [NM] Routine Exams 04/24/17 06:00 Taken ECG 12 lead ECG [ECG] AM 0600 Y 04/25/17 06:00 Ordered ECG 12 lead ECG [ECG] Routine Y 04/24/17 19:46 Completed EKG [ECG 12 lead ECG] [ECG] Stat Y 04/25/17 12:02 Completed EV brian guided cardioversion Routine Y 04/26/17 09:22 Completed SP pharm nuclear stress Routine Y 04/24/17 07:30 Completed Date of admission: 04/22/17 17:01 Primary care physician: Americo Arguello Jr, MD Consults: 04/24/17 13:37 Consult to Cardiology [CONS] Routine Comment: Consulting Provider: Cardiology Amanda Reason for Consult: a fib with RVR, Stress test showed "Pharmacologic stress ECG is non-diagnostic for ischemia due to submaximal HR. Gated EF > 70%. Small sized, mild intensity, reversible apical lateral defect. Although I suspect this is artifact, ischemia cannot be excluded. Perfusion imaging was negative for infarct." Time Notified: 13:40 Call Completed: Yes 04/25/17 07:58 Consult to Electrophysiology (EP) [CONS] Routine Consulting Provider: Electrophysiology Amanda Reason for Consult[facility] Completed: Yes Hospital course: Ms. Marquez is a 71 year old female - Time Spent with Patient Total time spent providing and/or coordinating discharge services: - Constitutional Vitals: Temp Pulse Resp BP Pulse Ox 97.3 F L 76 14 139/87 96 04/26/17 13:33 04/26/17 13:33 04/26/17 13:33 04/26/17 13:33 04/26/17 13:33 - Attending Attestation I examined this patient and my medical decision-making was reviewed with the Resident Physician. I agree with the documented findings, disposition and treatment plan as described except to the extent set forth below. cardiology input appreciated.
[2017-04-26 17:40] VITALS: BP 122/71
--- NOTE | 2017-04-29 08:34 | Electrocardiograph Report ---
[place] [address] Test Date: 2017-04-24 Pat Name: Yaa Marquez Department: 111 Room: 2NE23 Gender: F [employer]: [id number] : 1945 Requested By: Shukri Koo Order Number: [id number] Reading MD: Jeffrey España DO Measurements Intervals [place] Rate: 68 P: [place]: 0 QRS: 58 QRSD: 117 T: 75 QT: 423 QTc: 441 Interpretive Statements Atrial fibrillation Possible right ventricular conduction delay Electronically Signed On 04-28-2017 9:19:28 EDT by Jeffrey España DO
--- NOTE | 2017-04-29 08:36 | Electrocardiograph Report ---
[place] [address] Test Date: 2017-04-25 Pat Name: Yaa Marquez Department: 111 Room: 2NE23 Gender: Cafe Attendant: RENARD : 1945 Requested By: Criselda Loza Order Number: [id number] Reading MD: Jeffrey España DO Measurements Intervals [place] Rate: 83 P: [place]: 0 QRS: 64 QRSD: 97 T: 78 QT: 368 QTc: 408 Interpretive Statements ATRIAL FIBRILLATION NONSPECIFIC ST & T-WAVE ABNORMALITY Electronically Signed On 04-28-2017 10:02:42 EDT by Jeffrey España DO
--- NOTE | 2017-04-29 08:49 | Electrocardiograph Report ---
[place] [address] Test Date: 2017-04-26 Pat Name: Yaa Marquez Department: 106 Room: 2N3 Gender: After School Coordinator: : 1945 Requested By: Shukri Koo Order Number: [id number] Reading MD: Jeanna Sinclair Measurements Intervals [place] Rate: 70 P: 95 MS: 280 QRS: 26 QRSD: 102 T: 76 QT: 413 QTc: 434 Interpretive Statements SINUS RHYTHM WITH FIRST DEGREE AV BLOCK NONSPECIFIC T-WAVE ABNORMALITY Electronically Signed On 04-28-2017 18:04:52 EDT by Jeanna Sinclair
--- NOTE | 2017-04-29 09:29 | Electrocardiograph Report ---
[address] [address] Test Date: 2017-04-26 Pat Name: Yaa Marquez Department: 111 Room: 2NE23 Gender: F Cdl Service Technician: RENARD : 1945 Requested By: Shukri Koo Order Number: [id number] Reading MD: Edmond Kuhn MD Measurements Intervals [place] Rate: 77 P: [place]: 0 QRS: 14 QRSD: 105 T: 34 QT: 383 QTc: 415 Interpretive Statements ATRIAL FIBRILLATION Electronically Signed On 04-29-2017 9:27:50 EDT by Edmond Kuhn MD
== END 2017-04-26 18:41 | disposition home or self-care (01) | DRG 287 ==
LOC: EMEROO 08:47 → 2NENU 08:47
PROVIDERS: ADMIT Internal Medicine; ATTEND Internal Medicine

== ENCOUNTER 2017-05-25 17:55 | Observation (INO) ==
[2017-05-25] MEDS ORDERED: Nitroglycerin 0.4 MG TAB.SUBL SL ONE (18:08)
[2017-05-25] MEDS ORDERED: Aspirin 81 MG TAB.CHEW PO ONE (18:08)
[2017-05-25 18:26] LABS: Basophils % 0.4 %; Eosinophils # 0.1 K/mcL (0.0-0.6); Eosinophils % 1.8 %; Hematocrit 40.3 % (35.3-44.9); Hemoglobin 13.7 g/dL (11.5-15.4); Immature Granulocytes % 0.4 % (0-4); Lymphocytes # 1.6 K/mcL (0.6-4.6); Lymphocytes % 23.7 %; Mean Corpuscular Hemoglobin 33.3 pg (28.0-33.3); Mean Corpuscular Volume 98.1 fL (83.0-100.0); Mean Platelet Volume 9.2 fL (9.4-12.4); Monocytes # 0.6 K/mcL (0.0-1.3); Monocytes % 9.2 %; Neutrophils # 4.3 K/mcL (1.6-8.9); Platelet Count 255 K/mcL (140-400); Red Blood Count 4.11 M/mcL (3.82-4.97); Red Cell Distribution Width 12.7 % (11.5-14.5); Segmented Neutrophils % 64.5 %
[2017-05-25 18:30] LABS: INR 1.3; Prothrombin Time 13.8 Seconds (9.4-12.1)
[2017-05-25 18:32] LABS: Activated Partial Thrombo Time 74.4 Seconds (26.0-36.0)
[2017-05-25 18:49] LABS: Bilirubin,Urine Negative (Negative); Blood,Urine Negative (Negative); Clarity,Urine Clear (Clear); Color,Urine Yellow (Yellow); Glucose,Urine (UA) Normal (Normal); Ketones,Urine Negative (Negative); Leukocyte Esterase,Urine Small (Negative); Nitrite,Urine Negative (Negative); Protein,Urine Negative (Neg-Trace); Specific Gravity,Urine 1.013 (1.010-1.025); Urobilinogen,Urine Normal (Normal)
[2017-05-25 18:53] LABS: Albumin 4.3 g/dL (3.5-5.0); Albumin/Globulin Ratio 1.2 (1.1-2.2); Bilirubin,Direct 0.1 mg/dL (0.0-0.5); Bilirubin,Indirect 0.2 mg/dL (0.0-1.2); Bilirubin,Total 0.3 mg/dL (0.2-1.2); Calcium 9.8 mg/dL (8.6-10.8); Globulin 3.6 g/dL (2.4-3.5); Total Protein 7.9 g/dL (6.0-8.3)
[2017-05-25 19:05] LABS: Squamous Epithelial Cell,Urine Few per lpf (None-Few)
[2017-05-25 19:06] LABS: Bacteria,Urine None Seen per hpf (None-Few); Hyaline Casts,Urine None Seen per lpf (None-Few); RBC,Urine 0-3 per hpf (0-3)
--- NOTE | 2017-05-25 19:08 | Emergency Department Note ---
Disposition Clinical Impression: ST segment changes on electrocardiogram, Elevated lipase, Renal insufficiency Chest pain Qualifiers: Chest pain type: unspecified Qualified Code(s): R07.9 - Chest pain, unspecified Disposition: Admitted As Inpatient Condition: Fair Time of Disposition: 20:01 General Adult HPI - General Chief complaint: ED Arrhythmia/Palpitations Stated complaint: Afib Time Seen by Provider: 05/25/17 17:58 Source: family Limitations: no limitations Nursing Notes Reviewed: Yes Vital Signs Reviewed: Yes - History of Present Illness HPI Narrative: 71-year-old female past medical history diabetes, atrial fibrillation, hyperlipidemia, hypertension presents to the emergency department with concerns for going back into atrial fibrillation. Patient states that she feels heaviness on her chest. The patient denies any nausea or diaphoresis. Pain Scale: 0 - Related Data Home Medications Medication Instructions Recorded Confirmed Aspirin 81 mg PO DAILY 08/21/16 04/22/17 Dabigatran [Pradaxa] 150 mg PO BID 08/21/16 04/22/17 Diltiazem HCl [Diltiazem 24Hr Cd] 360 mg PO DAILY 08/21/16 04/22/17 Insulin Glargine [Lantus] 27 unit SQ HS 08/21/16 04/22/17 Insulin LISPRO [Humalog] 7 - 10 unit SQ TID PRN 08/21/16 04/22/17 Losartan Potassium [Cozaar] 100 mg PO DAILY 08/21/16 04/22/17 Ergocalciferol (VITAMIN D2) 50,000 unit PO QWEEK 04/22/17 04/22/17 [Vitamin D2] Previous Rx's Medication Instructions Recorded Atorvastatin [Lipitor] 80 mg PO HS #60 tablet 04/26/17 Flecainide 150 mg PO Q12HR #90 tablet 04/26/17 Allergies Allergy/AdvReac Type Severity Reaction Status Date / Time Penicillins [PCN] Allergy Anaphylaxis Verified 04/22/17 08:49 Sulfa (Sulfonamide Allergy Hives Verified 04/22/17 08:49 Antibiotics) All systems ED: reviewed and negative except as stated. Review of Systems: As Per HPI Constitutional: Denies: fever Cardiovascular: Reports: chest pain, palpitations Respiratory: Denies: cough, dyspnea Gastrointestinal: Denies: abdominal pain, nausea, vomiting Genitourinary: Denies: urgency Musculoskeletal: Denies: back pain Integumentary: Denies: rash Neurological: Denies: headache Past Medical History - Past Medical History Medical history: Reports: arthritis, atrial fibrillation, diabetes, GERD, hyperlipidemia, hypertension Surgical history: Reports: carotid endarterectomy, cataract, orthopedic, other, other Psychiatric history: Reports: no psych history BAGGAGE AGENT SUPERVISOR history: Reports: no BAGGAGE AGENT SUPERVISOR history - Social History Smoking Status: Never smoker Smokeless Tobacco Status: No Alcohol use: Reports: none Drug use: Reports: none Physical Exam General: Well Appearing, in no acute distress Head: autraumatic, EOMI, no conjuncitval pallor, no scleral icterus, Mouth: oral mucous membranes moist Neck: neck soft, trachea midline Chest:: Equal chest wall rise Lungs: Normal lungs sounds bilaterally, no wheezes, no respiratory distress Heart: normal heart sounds, irregular rhythm Abdomen: soft, non-tender, no rigidity, no guarding, no rebdound tenderness Lower Extremities: no pedal edema, calves non-tender Integumentary: Skin warm, dry, and intact Neuro: Alert Psych: normal affect, normal mood - General Limitations: no limitations General appearance: alert, in no apparent distress Course Vital Signs Temperature 98.0 F 05/25/17 18:03 Pulse Rate 88 05/25/17 18:03 Respiratory Rate 16 05/25/17 18:03 Blood Pressure 170/81 05/25/17 18:03 O2 Sat by Pulse Oximetry 98 05/25/17 18:03 Temperature 98.1 F 05/25/17 21:25 Pulse Rate 98 05/25/17 21:25 Respiratory Rate 18 05/25/17 21:25 Blood Pressure 155/76 05/25/17 21:25 O2 Sat by Pulse Oximetry 99 05/25/17 21:25 Oxygen Delivery Oxygen Delivery Room Air Medical Decision Making - [facility] Narrative Medical decision making narrative: 71-year-old female past medical history of diabetes, atrial fibrillation, hypertension, hyperlipidemia is in the emergency department with chest pressure and concern that she is going back into atrial fibrillation. Performed an electrocardiogram and it revealed new ST segment depressions of 1 mm in leads 1 , V4, V5, V6. Patient was slightly hypertensive with a blood pressure 170/81 at that time. We gave this patient one sublingual nitroglycerin tablet, and this resolved her chest pain completely. Patient's blood pressure was then 128/ 76. Patient was asymptomatic throughout the rest of her stay in the emergency department. Chest x-ray was normal, troponin was negative. I spoke to Dr. Obando, the puzzle assembler regarding this patient's care to see if he had any recommendations. He stated to just be sure the patient gets her dose of Pradaxa and admit her to the hospitalist. I agree with this plan. I discussed this with the patient. The patient also had a mild increase in her creatinine from where the normal limits. She has also has a mildly elevated lipase. I have given this patient a liter of normal saline to address this. Patient was hemodynamically stable at time of discharge. Vital Signs Temperature 98.0 F 05/25/17 18:03 Pulse Rate 88 05/25/17 18:03 Respiratory Rate 16 05/25/17 18:03 Blood Pressure 170/81 05/25/17 18:03 O2 Sat by Pulse Oximetry 98 05/25/17 18:03 Temperature 98.0 F 05/25/17 18:03 Pulse Rate 100 05/25/17 18:33 Respiratory Rate 16 05/25/17 18:33 Blood Pressure 128/76 05/25/17 18:33 O2 Sat by Pulse Oximetry 98 05/25/17 18:33 Oxygen Delivery Oxygen Delivery Room Air - Medical Records Medical records reviewed: Yes I reviewed the patient's medical records. - Lab Data Lab results reviewed: Yes I reviewed the patient's lab results. Result diagrams: 05/25/17 18:13 05/25/17 18:13 Lab Results 05/25/17 05/25/17 05/25/17 Range/Units 18:13 18:13 18:13 WBC 6.7 (4.3-11.1) K/mcL RBC 4.11 (3.82-4.97) M/mcL Hgb 13.7 (11.5-15.4) g/dL Hct 40.3 (35.3-44.9) % MCV 98.1 (83.0-100.0) fL MCH 33.3 (28.0-33.3) pg MCHC 34.0 (31.6-35.5) g/dL RDW 12.7 (11.5-14.5) % Plt Count 255 (140-400) K/mcL MPV 9.2 L (9.4-12.4) fL Immature Gran % 0.4 (0-4) % Seg Neutrophils % 64.5 % Lymphocytes % 23.7 % Monocytes % 9.2 % Eosinophils % 1.8 % Basophils % 0.4 % Neutrophils # 4.3 (1.6-8.9) K/mcL Lymphocytes # 1.6 (0.6-4.6) K/mcL Monocytes # 0.6 (0.0-1.3) K/mcL Eosinophils # 0.1 (0.0-0.6) K/mcL Basophils # 0.0 (0.0-0.2) K/mcL PT 13.8 H (9.4-12.1) Seconds INR 1.3 APTT 74.4 H (26.0-36.0) Seconds Sodium 141 (136-145) mEq/L Potassium 4.0 (3.5-4.5) mEq/L Chloride 107 (98-109) mEq/L Carbon Dioxide 22 (19-29) mEq/L BUN 26 H (7-20) mg/dL Creatinine 1.41 H (0.57-1.11) mg/dL Est GFR ( Amer) 45 L (> 60) Est GFR (Non-Af Amer) 37 L (> 60) BUN/Creatinine Ratio 18 (6-26) Glucose 156 H (70-99) mg/dL Calculated Osmolality 300 (280-300) Calcium 9.8 (8.6-10.8) mg/dL Total Bilirubin 0.3 (0.2-1.2) mg/dL Direct Bilirubin 0.1 (0.0-0.5) mg/dL Indirect Bilirubin 0.2 (0.0-1.2) mg/dL AST 24 (5-34) Units/L ALT 16 (0-55) Units/L Alkaline Phosphatase 112 (38-126) Units/L Troponin I (0-0.03) ng/mL Serum Total Protein 7.9 (6.0-8.3) g/dL Albumin 4.3 (3.5-5.0) g/dL Globulin 3.6 H (2.4-3.5) g/dL Albumin/Globulin Ratio 1.2 (1.1-2.2) Lipase 121 H (8-78) Units/L Urine Color (Yellow) Urine Clarity (Clear) Urine pH (5.0-8.0) pH Units Ur Specific [place] (1.010-1.025) Urine Protein (Neg-Trace) mg/dL Urine Glucose (UA) (Normal) mg/dL Urine Ketones (Negative) mg/dL Urine Blood (Negative) Urine Nitrite (Negative) Urine Bilirubin (Negative) Urine Urobilinogen (Normal) mg/dL Ur Leukocyte Esterase (Negative) Urine Microscopic RBC (0-3) per hpf Urine Microscopic WBC (0-3) per hpf Ur Squamous Epith Cells (None-Few) per lpf Urine Bacteria (None-Few) per hpf Hyaline Casts (None-Few) per lpf Ur Culture Indicated? (NO) 05/25/17 05/25/17 Range/Units 18:13 18:41 WBC (4.3-11.1) K/mcL RBC (3.82-4.97) M/mcL Hgb (11.5-15.4) g/dL Hct (35.3-44.9) % MCV (83.0-100.0) fL MCH (28.0-33.3) pg MCHC (31.6-35.5) g/dL RDW (11.5-14.5) % Plt Count (140-400) K/mcL MPV (9.4-12.4) fL Immature Gran % (0-4) % Seg Neutrophils % % Lymphocytes % % Monocytes % % Eosinophils % % Basophils % % Neutrophils # (1.6-8.9) K/mcL Lymphocytes # (0.6-4.6) K/mcL Monocytes # (0.0-1.3) K/mcL Eosinophils # (0.0-0.6) K/mcL Basophils # (0.0-0.2) K/mcL PT (9.4-12.1) Seconds INR APTT (26.0-36.0) Seconds Sodium (136-145) mEq/L Potassium (3.5-4.5) mEq/L Chloride (98-109) mEq/L Carbon Dioxide (19-29) mEq/L BUN (7-20) mg/dL Creatinine (0.57-1.11) mg/dL Est GFR ( Amer) (> 60) Est GFR (Non-Af Amer) (> 60) BUN/Creatinine Ratio (6-26) Glucose (70-99) mg/dL Calculated Osmolality (280-300) Calcium (8.6-10.8) mg/dL Total Bilirubin (0.2-1.2) mg/dL Direct Bilirubin (0.0-0.5) mg/dL Indirect Bilirubin (0.0-1.2) mg/dL AST (5-34) Units/L ALT (0-55) Units/L Alkaline Phosphatase (38-126) Units/L Troponin I 0.01 (0-0.03) ng/mL Serum Total Protein (6.0-8.3) g/dL Albumin (3.5-5.0) g/dL Globulin (2.4-3.5) g/dL Albumin/Globulin Ratio (1.1-2.2) Lipase (8-78) Units/L Urine Color Yellow (Yellow) Urine Clarity Clear (Clear) Urine pH 6.0 (5.0-8.0) pH Units Ur Specific [place] 1.013 (1.010-1.025) Urine Protein Negative (Neg-Trace) mg/dL Urine Glucose (UA) Normal (Normal) mg/dL Urine Ketones Negative (Negative) mg/dL Urine Blood Negative (Negative) Urine Nitrite Negative (Negative) Urine Bilirubin Negative (Negative) Urine Urobilinogen Normal (Normal) mg/dL Ur Leukocyte Esterase Small H (Negative) Urine Microscopic RBC 0-3 (0-3) per hpf Urine Microscopic WBC 3-5 H (0-3) per hpf Ur Squamous Epith Cells Few (None-Few) per lpf Urine Bacteria None Seen (None-Few) per hpf Hyaline Casts None Seen (None-Few) per lpf Ur Culture Indicated? YES A (NO) - Radiology Data Radiology results reviewed: Yes I reviewed the patient's radiology results. - EKG Data EKG #1 EKG attestation: Yes I reviewed and interpreted this EKG. EKG results narrative: EKG #1 18:02 Ventricular rate 94 bpm, no RI interval, QRS duration 108 ms, QT 350 ms, QTC 411 ms, normal axis. Irregular rhythm with some P waves concerning for going in and out of sinus and atrial fibrillation. There is new ST segment depression of 1 mm in the lateral leads of 1, V5, V6. EKG #2 18:17 Ventricular rate 89 bpm, no RI interval, QRS duration 109 ms, QT 385 ms, QTC 432 ms, normal axis. Irregular with a rhythm [address] segment depression still present in leads 1, V5 , V6. This is the same as EKG 1 performed at 18:02. EKG #3 18:44 Irregular rhythm Ventricular rate 83 bpm, RI interval: No P waves, QRS duration 110 ms, QT 380 ms, QTC 420 ms, normal axis. Attestation Statement - Attestation Attestation: I, Aniket Vega, examined this patient and my medical decision-making was reviewed with the MOBILE EQUIPMENT MECHANIC/PA/Advanced Practice Nurse/Resident Physician. I agree with the documented findings, disposition and treatment plan as described except to the extent set forth below. 71-year-old female presents emergency Department with concerns of chest heaviness. Patient states symptoms started acutely earlier today and feels like her previous atrial fibrillation. Patient states she has a history of paroxysmal atrial fibrillation and takes burdocks at home. EKG shows ST depressions in leads V4 through V5. Chest heaviness improved with nitroglycerin in the emergency department. Initial troponin negative. Repeat EKG after nitroglycerin shows improvement of the ST depressions. Pt will be admitted for further care and evaluation.
[2017-05-25] MEDS ORDERED: 0.9 % Sodium Chloride 1,000 ML IVC ONE ×2 (19:10→19:47)
[2017-05-25] MEDS ORDERED: Acetaminophen 325 MG TABLET PO PRN (20:33)
[2017-05-25] MEDS ORDERED: Naloxone 0.4 MG/ML INJ IVP PRN (20:33)
[2017-05-25] MEDS ORDERED: D5% in Water 1,000 ML IVC PRN (20:38)
[2017-05-25] MEDS ORDERED: *HR* Dextrose 50 % in Water (Syg) 50 ML SYRINGE IVP PRN (20:38)
[2017-05-25] MEDS ORDERED: Dextrose Gel 15 GM PO PRN ×2 (20:38)
--- NOTE | 2017-05-25 20:49 | Internal Med History&Physical ---
Date of Encounter: 05/25/17 Time of Encounter: 20:00 Assessment and Plan (1) Chest discomfort Current visit: Yes Status: Acute Patient has chest discomfort, most likely symptomatic A. fib. However, her symptoms seems respond to nitroglycerin, need to rule out ACS. - Place the patient on continuous cardiac monitoring. - track 3 sets of troponin - Patient had recent heart catheterization in apr 2017. - Cardiology consult - Nitroglycerin when necessary (2) Elevated lipase Current visit: Yes Status: Acute Mild elevated lipase. Etiology is undetermined. Patient has very mild LUQ tenderness. Need to rule out acute pancreatitis - Place patient on nothing by mouth, IV fluid. - Repeat lipase in a.m. - US abdomen to rule out gallstones or imaging evidence of pancreatitis (3) Renal insufficiency Current visit: Yes Status: Acute Will give patient IV fluid and follow-up renal function in a.m. Avoid nephrotoxic medications (4) DVT prophylaxis Current visit: No Status: Acute Patient is on pradaxa (5) CKD (chronic kidney disease) stage 3, GFR 30-59 ml/min Current visit: No Status: Chronic (6) Diabetes Current visit: No Status: Chronic Continue basal and sliding scale insulin Qualifiers: Diabetes mellitus type: type 2 Diabetes mellitus complication status: with unspecified complications Diabetes mellitus terminal operations supervisor insulin use: with terminal operations supervisor use Qualified Code(s): E11.8 - Type 2 diabetes mellitus with unspecified complications; Z79.4 - [facility] (current) use of insulin (7) Hypertension Current visit: Yes Status: Acute Continue home medications Qualifiers: Hypertension type: essential hypertension Qualified Code(s): I10 - Essential (primary) hypertension (8) A-fib Current visit: Yes Status: Acute Still A. fib now. Patient seems has no symptoms now. Heart rate is well controlled. Continue pradaxa for anticoagulations Qualifiers: Atrial fibrillation type: paroxysmal Qualified Code(s): I48.0 - Paroxysmal atrial fibrillation Internal Medicine - H&P: HPI Chief complaint: Chest discomfort Admitted From: Home Plans for Post Hospital Care: Home History of present illness: Ms. Marquez is a 71 year old female with a history of diabetes, hypertension, CKD, A. fib on rhythm control and pradaxa, present to ER for chest discomfort. Patient said the symptoms started from this afternoon 4 p.m.. Patient denies chest pain, shortness of breath, nausea, vomiting, or diaphoresis. Patient had no fever, no abdominal pain, denies urination symptoms or diarrhea. In the emergency room, she was given nitroglycerin and symptoms has improved. When I saw her in ER, patient said her chest discomfort has resolved. Patient said she knows the discomfort is due to her A. fib. Past Med Surg Social Fam HX - Past Medical History Medical history: arthritis, atrial fibrillation, diabetes, GERD, hyperlipidemia , hypertension Psychiatric history: no psych history - Past Surgical History Surgical History: carotid endarterectomy, cataract, orthopedic, other, other - Social History Smoking Status: Never smoker Smokeless Tobacco Status: No Alcohol use: none Drug use: none - Family History Father Family Member Ethnicity: Non- Living Status: Hx Family Cardiac Disorders: Yes ([place]) Hx Family Endocrine Disorder: Yes (DM) Mother Family Member Ethnicity: Non- Living Status: Hx Family Cardiac Disorders: Yes (HD, HTN) Hx Family Endocrine Disorder: Yes (DM) Sister Family Member Ethnicity: Non- Living Status: Still Living Hx Family Endocrine Disorder: Yes (DM) Internal Medicine - H&P: Meds Aspirin 81 mg PO DAILY 08/21/16 [History] Dabigatran [Pradaxa] 150 mg PO BID 08/21/16 [History] Diltiazem HCl [Diltiazem 24Hr Cd] 360 mg PO DAILY 08/21/16 [History] Insulin Glargine [Lantus] 27 unit SQ HS 08/21/16 [History] Insulin LISPRO [Humalog] 7 - 10 unit SQ TID PRN 08/21/16 [History] Losartan Potassium [Cozaar] 100 mg PO DAILY 08/21/16 [History] Ergocalciferol (VITAMIN D2) [Vitamin D2] 50,000 unit PO QWEEK 04/22/17 [History] Atorvastatin [Lipitor] 80 mg PO HS #60 tablet 04/26/17 [Rx] Flecainide 150 mg PO Q12HR #90 tablet 04/26/17 [Rx] 3 Allergy/AdvReac Type Severity Reaction Status Date / Time Penicillins [PCN] Allergy Anaphylaxis Verified 04/22/17 08:49 Sulfa (Sulfonamide Allergy Hives Verified 04/22/17 08:49 Antibiotics) All Systems PM: A 10-system review of systems was performed and is negative for pertinent findings except as documented above in the HPI. - Constitutional Vitals: Temp Pulse Resp BP Pulse Ox 98.0 F 100 16 128/76 98 05/25/17 18:03 05/25/17 18:33 05/25/17 18:33 05/25/17 18:33 05/25/17 18:33 General appearance: Present: A&O X 3, no acute distress, answers questions appropriately - Head Head exam: Present: atraumatic, normocephalic - Eye Eye exam: Present: PERRL, conjuntiva pink, sclera anicteric Pupils: Present: PERRL - Neck Neck exam general surgery: Present: supple, trachea midline. Absent: lymphadenopathy - Respiratory Respiratory exam: Present: CTAB. Absent: accessory muscle use, rales, rhonchi, wheezes - Cardiovascular Cardiovascular exam: Present: irregular rhythm, +S1, +S2. Absent: diastolic murmur, gallop, rubs, systolic murmur - GI/Abdominal GI/Abdominal exam: Present: normal bowel sounds, soft, tenderness (Mild tenderness on LUQ, no rebound or guarding), no peritoneal signs. Absent: distended - Extremities Exam Extremities exam: Present: warm, radial pulses palpable and symmetrical. Absent : calf tenderness, cyanotic, pedal edema - Neurological Exam Neurological exam: Present: CN II-XII intact, oriented X3, no focal deficits. Absent: pronater drift, facial droop, speech deficit - Skin Skin exam: Present: dry, intact Internal Med - H&P Results - Labs CBC & Chem 7: 05/25/17 18:13 05/25/17 18:13
[2017-05-25] MEDS ORDERED: Nitroglycerin 0.4 MG TAB.SUBL SL PRN (20:59)
[2017-05-25] MEDS ORDERED: *HR* Dabigatran 150 MG CAPSULE PO SCH (21:00)
[2017-05-25] MEDS: *HR* Dabigatran 150 MG CAPSULE PO SCH (22:50)
[2017-05-25] MEDS: 0.9 % Sodium Chloride 1,000 ML IVC SCH (22:53)
[2017-05-25] MEDS: Insulin DETEMIR 100 UNIT/ML X5UNITS SQ SCH (22:58)
[2017-05-25] MEDS: Insulin LISPRO 300 UNITS/3 ML VIAL SQ SCH (23:49)
[2017-05-26 01:13] LABS: Basophils % 0.5 %; Eosinophils # 0.1 K/mcL (0.0-0.6); Eosinophils % 1.4 %; Hematocrit 35.1 % (35.3-44.9); Immature Granulocytes % 0.3 % (0-4); Lymphocytes # 1.9 K/mcL (0.6-4.6); Mean Corpuscular HGB Conc 34.2 g/dL (31.6-35.5); Mean Corpuscular Hemoglobin 33.8 pg (28.0-33.3); Mean Corpuscular Volume 98.9 fL (83.0-100.0); Mean Platelet Volume 9.2 fL (9.4-12.4); Monocytes # 0.5 K/mcL (0.0-1.3); Monocytes % 7.4 %; Neutrophils # 3.8 K/mcL (1.6-8.9); Platelet Count 246 K/mcL (140-400); Red Blood Count 3.55 M/mcL (3.82-4.97); Red Cell Distribution Width 12.6 % (11.5-14.5); Segmented Neutrophils % 60.4 %
[2017-05-26 01:26] LABS: BUN/Creatinine Ratio 21 (6-26); Blood Urea Nitrogen 20 mg/dL (7-20); Calcium 9.1 mg/dL (8.6-10.8); Carbon Dioxide 25 mEq/L (19-29); Chloride 111 mEq/L (98-109); Glucose 106 mg/dL (70-99); Magnesium 2.2 mg/dL (1.6-2.6); Osmolality,Calculated 297 (280-300); Potassium 4.2 mEq/L (3.5-4.5); Sodium 142 mEq/L (136-145); eGFR For African Americans > 60 (> 60); eGFR For Non-African Americans 58 (> 60)
[2017-05-26 01:41] LABS: Chol/HDL Ratio 3.3 (0-4.9)
[2017-05-26 02:01] LABS: Thyroid Stimulating Hormone 2.702 mcIU/mL (0.350-4.840)
[2017-05-26] MEDS: Insulin LISPRO 300 UNITS/3 ML VIAL SQ SCH ×4 (06:00→21:45)
[2017-05-26] MEDS: Aspirin 81 MG TAB.CHEW PO SCH (07:48)
[2017-05-26] MEDS: Diltiazem CD (24hr) 180 MG CAPSULE PO SCH (07:49)
[2017-05-26] MEDS: *HR* Dabigatran 150 MG CAPSULE PO SCH ×2 (07:49→21:49)
--- NOTE | 2017-05-26 09:44 | Cardiology Consult Note ---
Date of Encounter: 05/26/17 Time of Encounter: 09:43 Assessment and Plan (1) Chest pain Current Visit: Yes Status: Acute Chest pain may be secondary to atrial fibrillation and known CAD. Patient reports she is very symptomatic with PAF. Troponin negative x 3. WIll repeat EKG now back in NSR. No indication for further testing at this time. Maximize medical therapy. [facility] 04/2017 showed moderate non-obstructive 2 vessel CAD. There was a 40% stenosis in the mLAD. There was a 50% stenosis in the mRCA. TTE 04/22/17-Normal LV systolic function, LVEF 60-65%. Indeterminate diastolic function due to atrial fibrillation. Normal right ventricular size and function. No significant valvular dysfunction. No evidence of pulmonary hypertension. Continue asa, statin, and add imdur. Not on bb to add room for CCB for PAF. NTG SL PRN. Qualifiers: Chest pain type: unspecified Qualified Code(s): R07.9 - Chest pain, unspecified (2) Paroxysmal atrial fibrillation Current Visit: No Status: Acute Presented in recurrent afib. HR up to 100 bpm seen. Converted to NSR on her own. S/p DCCV earlier this year. Continue flecainide and cardizem. WIll consider adding low dose beta-angel. On pradaxa for AC. (3) CAD (coronary artery disease) Current Visit: Yes Status: Acute Moderate non obstructive CAD seen on [facility] 04/2017. Plan as described above. Qualifiers: Coronary Disease-Associated Artery/Lesion type: [place] artery [place] vs. transplanted heart: [place] heart Associated angina: without angina Qualified Code(s): I25.10 - Atherosclerotic heart disease of [place] coronary artery without angina pectoris Discussion w patient/family: The assessment and plan as outlined above was discussed with the patient and/or family members who expressed understanding and agreement. All questions were answered. Thank you for involving us in the care of your patient. Please call with any questions. History of Present Illness Consult date: 05/26/17 Requesting physician: Shukri Koo Consult reason: Chest pain Chief complaint: Palpitations and left sided chest pain. History of present illness: Ms. Marquez is a 71 year old female who c/o palpitations for two hours associated with left sided chest pain. She was found to be in atrial fibrillation. HR 80- 100. She states that this morning her heart went back into a normal rhythm and she feels much better. Denies pain. She has a known history of paroxysmal atrial fibrillation on pradaxa and flecainide. She is s/p flecainide increase and cardioversion in April of this year. She reports this is her first reoccurrence. C/o feeling very symptomatic with afib but she was concerned about her chest discomfort. She has a history of moderate non-obstructive CAD seen on [facility] 2016, HTN, HLD, and GERD. She was also found to have abdominal tenderness and elevated lipase and RHYS. She is awaiting abdominal US to r/o pancreatitis. Past Med Surg Social Fam HX - Past Medical History Attestation: Yes The following information was validated with the patient. Medical history: arthritis, atrial fibrillation, diabetes, GERD, hyperlipidemia , hypertension Psychiatric history: no psych history - Past Surgical History Surgical History: carotid endarterectomy, cataract, orthopedic, other, other - Social History Smoking Status: Never smoker Smokeless Tobacco Status: No Alcohol use: none Drug use: none - Family History Father Family Member Ethnicity: Non- Living Status: Hx Family Cardiac Disorders: Yes ([place]) Hx Family Endocrine Disorder: Yes (DM) Mother Family Member Ethnicity: Non- Living Status: Hx Family Cardiac Disorders: Yes (HD, HTN) Hx Family Endocrine Disorder: Yes (DM) Sister Family Member Ethnicity: Non- Living Status: Still Living Hx Family Endocrine Disorder: Yes (DM) Medications and Allergies Aspirin 81 mg PO DAILY 08/21/16 [History] Dabigatran [Pradaxa] 150 mg PO BID 08/21/16 [History] Diltiazem HCl [Diltiazem 24Hr Cd] 360 mg PO DAILY 08/21/16 [History] Insulin Glargine [Lantus] 27 unit SQ HS 08/21/16 [History] Insulin LISPRO [Humalog] 7 - 10 unit SQ TID PRN 08/21/16 [History] Losartan Potassium [Cozaar] 100 mg PO DAILY 08/21/16 [History] Ergocalciferol (VITAMIN D2) [Vitamin D2] 50,000 unit PO QWEEK 04/22/17 [History] Atorvastatin [Lipitor] 80 mg PO HS #60 tablet 04/26/17 [Rx] Flecainide 150 mg PO Q12HR #90 tablet 04/26/17 [Rx] 3 Allergy/AdvReac Type Severity Reaction Status Date / Time Penicillins [PCN] Allergy Anaphylaxis Verified 04/22/17 08:49 Sulfa (Sulfonamide Allergy Hives Verified 04/22/17 08:49 Antibiotics) All Systems Review: A 10-system review of systems was performed and is negative for pertinent findings except as documented above in the HPI. Physical Examination Vital Signs, Last 4 Hours Temp Pulse Resp BP Pulse Ox 05/26/17 07:42 98.1 F 86 19 127/71 98 General: Conversant, No Apparent Distress HEENT: Atraumatic, Normocephaly, Mucus Membranes Moist Neck: No JVD, Normal carotid pulses Cardiac: Reg Rate and Rhythm, Normal S1 and S2, No Murmur Lungs: Normal Breath Sounds, No Wheeze, Rales, Rhonchi Neuro: Alert and responsive, No focal deficits noted Abdomen: Soft, Non-Tender Skin: No rashes noted on visualized skin Musculoskeletal: No Chest Wall Tenderness Extremities: No Clubbing, No Cyanosis, No Edema, Normal Pulses Results 05/26/17 01:00 05/26/17 01:00 Lab Results 05/26/17 05/26/17 05/26/17 01:00 01:00 01:00 WBC 6.3 Hgb 12.0 D Hct 35.1 L Plt Count 246 Sodium 142 Potassium 4.2 Chloride 111 H Carbon Dioxide 25 BUN 20 Creatinine 0.95 Glucose 106 H Calcium 9.1 Magnesium 2.2 Troponin I 0.01 Lipase TSH 05/26/17 05/26/17 01:00 07:41 WBC Hgb Hct Plt Count Sodium Potassium Chloride Carbon Dioxide BUN Creatinine Glucose Calcium Magnesium Troponin I 0.00 Lipase 70 TSH 2.702 - Imaging and Cardiology Echo: report reviewed Cardiac cath: report reviewed - EKG Interpretation EKG results cardiology: personally reviewed (Atrial fibrillation with non- specific ST changes.) Consult Discharge Plan - Plan Referrals: Americo Arguello Jr, MD [Primary Care Provider] -
--- NOTE | 2017-05-26 11:00 | Discharge Summary ---
Date of Encounter: 05/26/17 - Discharge Diagnosis (1) Chest discomfort Status: Acute (2) Elevated lipase Status: Acute (3) Renal insufficiency Status: Acute (4) Diabetes Status: Chronic Qualifiers: Diabetes mellitus type: type 2 Diabetes mellitus complication status: with unspecified complications Diabetes mellitus termite treater insulin use: with termite treater use Qualified Code(s): E11.8 - Type 2 diabetes mellitus with unspecified complications; Z79.4 - intermission coordinator (current) use of insulin (5) HTN (hypertension) Status: Chronic Qualifiers: Hypertension type: essential hypertension Qualified Code(s): I10 - Essential (primary) hypertension (6) CKD (chronic kidney disease) stage 3, GFR 30-59 ml/min Status: Chronic (7) A-fib Status: Acute Qualifiers: Atrial fibrillation type: paroxysmal Qualified Code(s): I48.0 - Paroxysmal atrial fibrillation (8) DVT prophylaxis Status: Acute - Discharge Medications Home Medications: Aspirin 81 mg PO DAILY 08/21/16 [History] Dabigatran [Pradaxa] 150 mg PO BID 08/21/16 [History] Diltiazem HCl [Diltiazem 24Hr Cd] 360 mg PO DAILY 08/21/16 [History] Insulin Glargine [Lantus] 27 unit SQ HS 08/21/16 [History] Insulin LISPRO [Humalog] 7 - 10 unit SQ TID PRN 08/21/16 [History] Losartan Potassium [Cozaar] 100 mg PO DAILY 08/21/16 [History] Ergocalciferol (VITAMIN D2) [Vitamin D2] 50,000 unit PO QWEEK 04/22/17 [History] Atorvastatin [Lipitor] 80 mg PO HS #60 tablet 04/26/17 [Rx] Flecainide 150 mg PO Q12HR #90 tablet 04/26/17 [Rx] Allergies/Adverse Reactions: 3 Allergy/AdvReac Type Severity Reaction Status Date / Time Penicillins [PCN] Allergy Anaphylaxis Verified 04/22/17 08:49 Sulfa (Sulfonamide Allergy Hives Verified 04/22/17 08:49 Antibiotics) Procedures/tests Complete & Pending: Procedures Performed prior 72 hours Category Date Time Status US abdomen complete [US] Routine Exams 05/25/17 20:42 Ordered EKG [ECG 12 lead ECG] [ECG] Stat Y 05/26/17 10:08 Ordered Date of admission: 05/25/17 19:55 Primary care physician: Americo Arguello Jr, MD Discharging clinician: Jarod Mendoza - Patient Status Condition: Fair - Discharge Instructions Follow Up With: Americo Arguello Jr, MD [Primary Care Provider] - Hospital course: Ms. Marquez is a 71 year old female - Time Spent with Patient Total time spent providing and/or coordinating discharge services: - Constitutional Vitals: Temp Pulse Resp BP Pulse Ox 98.1 F 86 19 127/71 98 05/26/17 07:42 05/26/17 07:42 05/26/17 07:42 05/26/17 07:42 05/26/17 07:42 General appearance: Present: A&O X 3, no acute distress, answers questions appropriately
--- NOTE | 2017-05-26 11:06 | Internal Med Progress Note ---
<Evette Fisher - Last Filed: 05/26/17 13:57> Date of Encounter: 05/26/17 Time of Encounter: 11:03 - Assessment and plan (1) Chest discomfort Current Visit: Yes Status: Acute Assessment and plan: Patient presented with chest discomfort, most likely symptomatic A. fib. Responded to nitroglycerin Troponin negative CXR no acute cardiopulmonary process heart catheterization in apr 2017 -Cardiology on board -imdur and metoprolol added -continue patient's medication of diltiazem, flecainide, pradaxa, aspirin, atorvastatin, losartan -continuous telemetry (2) A-fib Current Visit: Yes Status: Acute Assessment and plan: Patient has known A. Fib on anticoagulation with Pradaxa, rate controlled with flecainide and diltiazem -see plan above Qualifiers: Atrial fibrillation type: paroxysmal Qualified Code(s): I48.0 - Paroxysmal atrial fibrillation (3) Elevated lipase Current Visit: Yes Status: Acute Assessment and plan: Patient had a mild elevated lipase 120 with left upper quadrant tenderness. Acute pancreatitis ruled out Today lipase 70 and she denies abdominal pain, nausea, vomiting patient is afebrile, WBC WNL -Abdominal ultrasound canceled (4) Renal insufficiency Current Visit: Yes Status: Acute Assessment and plan: RHYS at admission, creatinine was 1.41 resolved, creatinine now 0.95 -IV fluids -avoid nephrotoxic agents -continued renal monitoring (5) Diabetes Current Visit: No Status: Chronic Assessment and plan: History of diabetes -continue low-dose sliding scale insulin Qualifiers: Diabetes mellitus type: type 2 Diabetes mellitus complication status: with unspecified complications Diabetes mellitus superintendent terminal insulin use: with superintendent terminal use Qualified Code(s): E11.8 - Type 2 diabetes mellitus with unspecified complications; Z79.4 - snf (current) use of insulin (6) HTN (hypertension) Current Visit: No Status: Chronic Assessment and plan: History of hypertension -continue home medications Qualifiers: Hypertension type: essential hypertension Qualified Code(s): I10 - Essential (primary) hypertension (7) CKD (chronic kidney disease) stage 3, GFR 30-59 ml/min Current Visit: No Status: Chronic Assessment and plan: Creatinine within normal limits -avoid nephrotoxic agents -continue to renal function monitoring (8) DVT prophylaxis Current Visit: No Status: Acute Assessment and plan: Patient is on Pradaxa - Subjective Interval history: Sitting up comfortably in bed alert and oriented in no acute distress denies chest pain, shortness of breath, abdominal pain, nausea, vomiting - Constitutional Vitals: Temp Pulse Resp BP Pulse Ox 98.1 F 86 19 127/71 98 05/26/17 07:42 05/26/17 07:42 05/26/17 07:42 05/26/17 07:42 05/26/17 07:42 General appearance: Present: A&O X 3, no acute distress, answers questions appropriately Exam: Gen.: Vitals noted. No acute distress. AAOx3 HEENT: oropharynx clear, Normocephalic, atraumatic Cardiac: RRR, no murmur, +S1/S2 Pulmonary: CTA bilaterally, no wheezes, rales or rhonchi, equal chest expansion Abdomen: soft, nontender, Bowel sounds noted, no guarding Extremities: no BLE edema, nontender calf, no cyanosis or clubbing Neuro: A&Ox3, moves all extremities Psych: Appropriate mood and behavior Internal Medicine: Result - Labs CBC & Chem 7: 05/26/17 01:00 05/26/17 01:00 Labs: Short CBC 05/26/17 Range/Units 01:00 WBC 6.3 (4.3-11.1) K/mcL Hgb 12.0 D (11.5-15.4) g/dL Hct 35.1 L (35.3-44.9) % Plt Count 246 (140-400) K/mcL Neutrophils # 3.8 (1.6-8.9) K/mcL BMP 05/26/17 01:00 Sodium 142 Potassium 4.2 Chloride 111 H Carbon Dioxide 25 BUN 20 Creatinine 0.95 Glucose 106 H Calcium 9.1 Cardiac Enzymes 05/26/17 05/26/17 Range/Units 01:00 07:41 Troponin I 0.01 0.00 (0-0.03) ng/mL - ABG Interpretation ABG results: PT/INR, D-dimer PT 13.8 Seconds (9.4-12.1) H 05/25/17 18:13 Consult Discharge Plan - Plan Referrals: Americo Arguello Jr, MD [Primary Care Provider] - <Jarod Mendoza H - Last Filed: 05/26/17 14:32> Date of Encounter: 05/26/17 - Constitutional Vitals: Temp Pulse Resp BP Pulse Ox 98.1 F 91 17 150/81 97 05/26/17 11:17 05/26/17 11:17 05/26/17 11:17 05/26/17 11:17 05/26/17 11:17 Internal Medicine: Result - Labs CBC & Chem 7: 05/26/17 01:00 05/26/17 01:00 Labs: Short CBC 05/26/17 Range/Units 01:00 WBC 6.3 (4.3-11.1) K/mcL Hgb 12.0 D (11.5-15.4) g/dL Hct 35.1 L (35.3-44.9) % Plt Count 246 (140-400) K/mcL Neutrophils # 3.8 (1.6-8.9) K/mcL BMP 05/26/17 01:00 Sodium 142 Potassium 4.2 Chloride 111 H Carbon Dioxide 25 BUN 20 Creatinine 0.95 Glucose 106 H Calcium 9.1 Cardiac Enzymes 05/26/17 05/26/17 Range/Units 01:00 07:41 Troponin I 0.01 0.00 (0-0.03) ng/mL - ABG Interpretation ABG results: PT/INR, D-dimer PT 13.8 Seconds (9.4-12.1) H 05/25/17 18:13 - Attending Attestation Cardiology has recommended to monitor the patient overnight to assess her response to metoprolol and to consider switching flecainide to sotalol. Further cardiology recommendations are appreciated I examined this patient and my medical decision-making was reviewed with the Resident Physician. I agree with the documented findings, disposition and treatment plan as described except to the extent set forth below.
[2017-05-26] MEDS: Isosorbide MONOnitrate (24 HR) 30 MG TAB.ER.24H PO SCH (13:11)
[2017-05-26] MEDS: 0.9 % Sodium Chloride 1,000 ML IVC SCH (13:14)
[2017-05-26] MEDS ORDERED: D5% in Water 1,000 ML IVC PRN (20:47)
[2017-05-26] MEDS: Insulin DETEMIR 100 UNIT/ML X5UNITS SQ SCH (21:50)
[2017-05-27] MEDS: 0.9 % Sodium Chloride 1,000 ML IVC SCH (03:52)
[2017-05-27 05:29] LABS: Calcium 8.4 mg/dL (8.6-10.8); Potassium 4.1 mEq/L (3.5-4.5)
[2017-05-27 05:49] LABS: Hemoglobin 10.5 g/dL (11.5-15.4); Mean Corpuscular HGB Conc 32.8 g/dL (31.6-35.5); Mean Corpuscular Volume 100.6 fL (83.0-100.0); Mean Platelet Volume 9.6 fL (9.4-12.4); Platelet Count 212 K/mcL (140-400); Red Blood Count 3.18 M/mcL (3.82-4.97); Red Cell Distribution Width 12.8 % (11.5-14.5)
[2017-05-27] MEDS: Insulin LISPRO 300 UNITS/3 ML VIAL SQ SCH ×2 (08:34→12:20)
[2017-05-27] MEDS: *HR* Dabigatran 150 MG CAPSULE PO SCH (08:35)
[2017-05-27] MEDS: Diltiazem CD (24hr) 180 MG CAPSULE PO SCH (08:35)
[2017-05-27] MEDS: Isosorbide MONOnitrate (24 HR) 30 MG TAB.ER.24H PO SCH (08:35)
[2017-05-27] MEDS: Aspirin 81 MG TAB.CHEW PO SCH (08:35)
--- NOTE | 2017-05-27 12:37 | Electrophysiology Consult Note ---
<Lm Garcia R - Last Filed: 05/27/17 12:56> Date of Encounter: 05/27/17 Time of Encounter: 12:33 Assessment and Plan (1) Paroxysmal atrial fibrillation Current Visit: No Status: Acute Presented in recurrent afib. HR up to 100 bpm seen. Converted to NSR on her own. S/p DCCV earlier this year. Maintained SR overnight. Continue flecainide 150mg BID, cardizem cd 360mg daily and metoprolol 25mg BID added yesterday. On pradaxa for AC. Recurrent symptomatic paroxysmal atrial fibrillation despite flecainide 150mg BID and cardizem CD 360mg daily. Flecainide was increased last month. This is first recurrence since increase in dose. Discussed with Dr. Aniket Siu. Gave pt option of continuing current Flecainide 150mg BID with CCB and BB since this is first breakthrough episode, or gave option to stay for flecainide washout and try a different antiarrhythmic such as Sotalol. Pt prefers to stay on Flecainide for now. Creatinine mildly elevated 1.15. Creatinine clearance 52. No dose adjustment necessary. EKG QT/QTc 380/430, QRS 110. Anticipate sign off once seen and evaluated by Dr. Aniket Siu. Will coordinate close outpt follow-up. (2) Chest pain Current Visit: Yes Status: Acute Chest pain may be secondary to atrial fibrillation and known CAD. Patient reports she is very symptomatic with PAF. Troponin negative x 3. No indication for further testing at this time. Maximize medical therapy. [facility] 04/2017 showed moderate non-obstructive 2 vessel CAD. There was a 40% stenosis in the mLAD. There was a 50% stenosis in the mRCA. TTE 04/22/17-Normal LV systolic function, LVEF 60-65%. Indeterminate diastolic function due to atrial fibrillation. Normal right ventricular size and function. No significant valvular dysfunction. No evidence of pulmonary hypertension. Continue asa, statin, BB. Imdur added yesterday and pt reports improvement in symptoms. Qualifiers: Chest pain type: unspecified Qualified Code(s): R07.9 - Chest pain, unspecified (3) CAD (coronary artery disease) Current Visit: Yes Status: Acute Moderate non obstructive CAD seen on [facility] 04/2017. Plan as described above. Qualifiers: Coronary Disease-Associated Artery/Lesion type: telida artery [place] vs. transplanted heart: telida heart Associated angina: without angina Qualified Code(s): I25.10 - Atherosclerotic heart disease of telida coronary artery without angina pectoris Discussion w patient/family: The assessment and plan as outlined above was discussed with the patient and/or family members who expressed understanding and agreement. All questions were answered. Thank you for involving us in the care of your patient. Please call with any questions. I will discuss all the above with Dr. Aniket Siu and make changes as necessary. History of Present Illness Consult date: 05/27/17 Requesting physician: Criselda Loza Consult reason: PAF Chief complaint: palpitations, chest pain History of present illness: Ms. Marquez is a 71 year old female who presented with palpitations for two hours associated with left sided chest pain. She was found to be in atrial fibrillation. HR 80-100. She since converted back to SR yesterday morning and she feels much better. She has a known history of paroxysmal atrial fibrillation on pradaxa and flecainide. She is s/p flecainide increase and cardioversion last month. She reports this is her first reoccurrence. C/o feeling very symptomatic with afib but she was concerned about her chest discomfort. She has a history of moderate non-obstructive CAD seen on [facility] 2016 , HTN, HLD, and GERD. BB added. Currently on CCB, BB, and Flecainide. Imdur added yesterday for chest discomfort. EP consulted for further recommendations on antiarrhythmic therapy. Pt reports feeling well today, denies currently chest pain or dyspnea. Past Med Surg Social Fam HX - Past Medical History Medical history: arthritis, atrial fibrillation, diabetes, GERD, hyperlipidemia , hypertension Psychiatric history: no psych history - Past Surgical History Surgical History: carotid endarterectomy, cataract, orthopedic, other, other - Social History Smoking Status: Never smoker Smokeless Tobacco Status: No Alcohol use: none Drug use: none - Family History Father Family Member Ethnicity: Non- Living Status: Hx Family Cardiac Disorders: Yes ([place]) Hx Family Endocrine Disorder: Yes (DM) Mother Family Member Ethnicity: Non- Living Status: Hx Family Cardiac Disorders: Yes (HD, HTN) Hx Family Endocrine Disorder: Yes (DM) Sister Family Member Ethnicity: Non- Living Status: Still Living Hx Family Endocrine Disorder: Yes (DM) Medications and Allergies Aspirin 81 mg PO DAILY 08/21/16 [History] Dabigatran [Pradaxa] 150 mg PO BID 08/21/16 [History] Diltiazem HCl [Diltiazem 24Hr Cd] 360 mg PO DAILY 08/21/16 [History] Insulin Glargine [Lantus] 27 unit SQ HS 08/21/16 [History] Insulin LISPRO [Humalog] 7 - 10 unit SQ TID PRN 08/21/16 [History] Losartan Potassium [Cozaar] 100 mg PO DAILY 08/21/16 [History] Ergocalciferol (VITAMIN D2) [Vitamin D2] 50,000 unit PO WESA 04/22/17 [History] Atorvastatin [Lipitor] 80 mg PO HS #60 tablet 04/26/17 [Rx] Flecainide 150 mg PO Q12HR #90 tablet 04/26/17 [Rx] 3 Allergy/AdvReac Type Severity Reaction Status Date / Time Penicillins [PCN] Allergy Anaphylaxis Verified 04/22/17 08:49 Sulfa (Sulfonamide Allergy Hives Verified 04/22/17 08:49 Antibiotics) All Systems Review: A 10-system review of systems was performed and is negative for pertinent findings except as documented above in the HPI. Physical Examination Vital Signs, Last 4 Hours Temp Pulse Resp BP Pulse Ox 05/27/17 12:10 97.8 F 70 16 134/67 98 Vital Signs Temp Pulse Resp BP Pulse Ox 05/27/17 12:10 97.8 F 70 16 134/67 98 05/27/17 07:35 97.6 F 64 16 129/67 96 05/27/17 03:26 97.9 F 67 14 107/63 97 05/26/17 22:45 98.3 F 60 14 101/52 96 05/26/17 18:35 98.4 F 63 14 91/47 95 05/26/17 15:33 98.0 F 60 16 97/57 97 Intake and Output 05/26/17 05/27/17 05/27/17 23:59 07:59 15:59 Intake Total 1000 / 1000 480 / 480 Output Total 500 / 500 300 / 300 Balance -500 / -500 700 / 700 480 / 480 Intake: IV Fluids 1000 / 1000 0.9 % Sodium Chloride 1,000 ML 1000 / 1000 @ 70 mls/hr IVC .[id number] COUNT INCLUDES THE [facility] Rx #:[id number] Oral 480 / 480 Output: Urine 500 / 500 300 / 300 Other: Meal Breakfast Percent of Meal Consumed 100% Stool Size Moderate Stool Consistency formed Stool Characteristics Normal for Patient Stool Color Brown # Bowel Movement Diapers 1 Weight 73.028 kg Blood Glucose* 129 77 136 Patient Weight 05/27/17 23:59 Weight 73.028 kg General: Conversant, No Apparent Distress HEENT: Atraumatic, Normocephaly, Mucus Membranes Moist Neck: No JVD, Normal carotid pulses Cardiac: Reg Rate and Rhythm, Normal S1 and S2, No Murmur Lungs: Normal Breath Sounds, No Wheeze, Rales, Rhonchi Neuro: Alert and responsive, No focal deficits noted Abdomen: Soft, Non-Tender Skin: No rashes noted on visualized skin Musculoskeletal: No Chest Wall Tenderness Extremities: No Clubbing, No Cyanosis, No Edema, Normal Pulses Results 05/27/17 04:42 05/27/17 04:42 Lab Results 05/27/17 05/27/17 04:42 04:42 WBC 5.3 Hgb 10.5 L D Hct 32.0 L Plt Count 212 Sodium 142 Potassium 4.1 Chloride 113 H Carbon Dioxide 22 BUN 27 H Creatinine 1.15 H Glucose 88 Calcium 8.4 L Short CBC 05/27/17 Range/Units 04:42 WBC 5.3 (4.3-11.1) K/mcL Hgb 10.5 L D (11.5-15.4) g/dL Hct 32.0 L (35.3-44.9) % Plt Count 212 (140-400) K/mcL BMP 05/27/17 Range/Units 04:42 Sodium 142 (136-145) mEq/L Potassium 4.1 (3.5-4.5) mEq/L Chloride 113 H (98-109) mEq/L Carbon Dioxide 22 (19-29) mEq/L BUN 27 H (7-20) mg/dL Creatinine 1.15 H (0.57-1.11) mg/dL Glucose 88 (70-99) mg/dL Calcium 8.4 L (8.6-10.8) mg/dL Active Medications Acetaminophen (Tylenol) 650 mg PO Q6HR PRN PRN Reason: Mild Pain (1-3) Stop: 11/24/17 20:34 Aspirin (Aspirin) 81 mg PO DAILY COUNT INCLUDES THE [facility] Stop: 11/25/17 09:01 Last Admin: 05/27/17 08:35 Dose: 81 mg Atorvastatin Calcium (Lipitor) 80 mg PO HS COUNT INCLUDES THE [facility] Stop: 11/24/17 21:01 Last Admin: 05/26/17 21:48 Dose: 80 mg Dabigatran (Pradaxa) 150 mg PO BID COUNT INCLUDES THE [facility] Stop: 11/24/17 21:01 Last Admin: 05/27/17 08:35 Dose: 150 mg Dextrose/Water (Dextrose 50% (Syg)) 25 ml IVP AD PRN PRN Reason: Hypoglycemia Stop: 11/24/17 20:39 Diltiazem HCl (Cardizem Cd) 360 mg PO DAILY COUNT INCLUDES THE [facility] Stop: 11/25/17 09:01 Last Admin: 05/27/17 08:35 Dose: 360 mg Flecainide Acetate (Flecainide) 150 mg PO Q12HR COUNT INCLUDES THE [facility] Stop: 11/25/17 06:01 Last Admin: 05/27/17 05:59 Dose: 150 mg Glucagon (Glucagen) 1 mg IM ONCE PRN PRN Reason: Hypoglycemia Stop: 11/24/17 20:39 Glucose (Gluctose) 15 gm PO ONCE PRN PRN Reason: Hypoglycemia Stop: 11/24/17 20:39 Glucose (Gluctose) 30 gm PO ONCE PRN PRN Reason: Hypoglycemia Stop: 11/24/17 20:39 Sodium Chloride (0.9 % Sodium Chloride) 1,000 mls @ 70 mls/hr IVC .[id number] COUNT INCLUDES THE [facility] Stop: 11/24/17 20:46 Last Admin: 05/27/17 03:52 Dose: 70 mls/hr Dextrose (Dextrose 5%) 1,000 mls @ 100 mls/hr IVC .Q10H PRN PRN Reason: HYPOGLYCEMIA Stop: 11/25/17 20:48 Insulin Detemir (Levemir) 18 unit 0.25 unit/kg (18 unit) SQ HS COUNT INCLUDES THE [facility] Stop: 11/24/17 21:01 Last Admin: 05/26/17 21:50 Dose: 18 unit Insulin Human Lispro (Humalog) 0 units SQ ACHS COUNT INCLUDES THE [facility] PRN Reason: Protocol Stop: 11/25/17 21:01 Last Admin: 05/27/17 12:20 Dose: Not Given Isosorbide Mononitrate (Imdur) 30 mg PO DAILY COUNT INCLUDES THE [facility] Stop: 11/25/17 10:01 Last Admin: 05/27/17 08:35 Dose: 30 mg Losartan Potassium (Cozaar) 100 mg PO DAILY COUNT INCLUDES THE [facility] Stop: 11/25/17 09:01 Last Admin: 05/27/17 08:35 Dose: 100 mg Metoprolol Tartrate (Lopressor) 25 mg PO BID COUNT INCLUDES THE [facility] Stop: 11/25/17 11:01 Last Admin: 05/27/17 08:35 Dose: 25 mg Naloxone HCl (Narcan) 0.4 mg IVP Q2MIN PRN PRN Reason: Opioid Reversal Stop: 11/24/17 20:34 Nitroglycerin (Nitroglycerin) 0.4 mg SL Q5MIN PRN PRN Reason: Chest Pain Stop: 11/24/17 21:00 - Imaging and Cardiology Echo: report reviewed Cardiac cath: report reviewed - EKG Interpretation EKG results cardiology: personally reviewed (A-Fib HR 83, QT/QTc 380/420ms.), other (12 hr tele AVG HR 65, now SR.) Consult Discharge Plan - Plan Referrals: Americo Arguello Jr, MD [Primary Care Provider] - (Call your primary care physician office to make a follow up appointment within 5-7 days following discharge. Thank You.) <Aniket Siu - Last Filed: 05/27/17 16:21> Date of Encounter: 05/27/17 - Attending Attestation I have personally performed a face to face evaluation on this patient. I have reviewed and agree with the care plan. History and Exam by me shows: PAF on flecainide. Breif recurrance. Discussed options staying in hosp. for alternate antiarrythmic or continuing current dose of flecainide. She elected to continue curent regimen. Assessment and Plan Discussion w patient/family: The assessment and plan as outlined above was discussed with the patient and/or family members who expressed understanding and agreement. All questions were answered. Thank you for involving us in the care of your patient. Please call with any questions. History of Present Illness History of present illness: Ms. Marquez is a 71 year old female All Systems Review: A 10-system review of systems was performed and is negative for pertinent findings except as documented above in the HPI. Results 05/27/17 04:42 05/27/17 04:42 Lab Results 05/27/17 05/27/17 04:42 04:42 WBC 5.3 Hgb 10.5 L D Hct 32.0 L Plt Count 212 Sodium 142 Potassium 4.1 Chloride 113 H Carbon Dioxide 22 BUN 27 H Creatinine 1.15 H Glucose 88 Calcium 8.4 L
--- NOTE | 2017-05-27 14:50 | Electrocardiograph Report ---
[place] [address] Test Date: 2017-05-25 Pat Name: Yaa Marquez Department: 102 Room: 3B45 Gender: F Trimmer Hand: Aggie : 1945 Requested By: Joel Mckeon Order Number: [id number] Reading MD: Jeanna Sinclair Measurements Intervals [place] Rate: 94 P: [place]: 0 QRS: 27 QRSD: 108 T: 61 QT: 359 QTc: 411 Interpretive Statements ATRIAL FIBRILLATION RV CONDUCTION DELAY Electronically Signed On 05-27-2017 14:48:39 EDT by Jeanna Sinclair
--- NOTE | 2017-05-27 14:51 | Electrocardiograph Report ---
[address] [place] [address] Test Date: 2017-05-25 Pat Name: Yaa Marquez Department: 102 Room: 3B45 Gender: F Psychiatric Assistant: Kiko : 1945 Requested By: Joel Mckeon Order Number: [id number] Reading MD: Jeanna Sinclair Measurements Intervals [place] Rate: 89 P: [place]: 0 QRS: 17 QRSD: 109 T: 77 QT: 385 QTc: 432 Interpretive Statements ATRIAL FIBRILLATION POSSIBLE RV CONDUCTION DELAY NONSPECIFIC ST ABNORMALITIES Electronically Signed On 05-27-2017 14:49:21 EDT by Jeanna Sinclair
--- NOTE | 2017-05-27 14:52 | Electrocardiograph Report ---
[place] [address] Test Date: 2017-05-25 Pat Name: Yaa Marquez Department: 102 Room: 3B45 Gender: Chief Radiologic Technologist: Kiko : 1945 Requested By: Joel Mckeon Order Number: [id number] Reading MD: Jeanna Sinclair Measurements Intervals [place] Rate: 83 P: [place]: 0 QRS: 28 QRSD: 110 T: 64 QT: 380 QTc: 420 Interpretive Statements ATRIAL FIBRILLATION POSSIBLE [place] TYPE PATTERN NONSPECIFIC ST ABNORMALITIES Electronically Signed On 05-27-2017 14:50:57 EDT by Jeanna Sinclair
[2017-05-27 16:25] VITALS: BP 113/58
--- NOTE | 2017-05-27 16:30 | Internal Med Progress Note ---
Date of Encounter: 05/27/17 Time of Encounter: 16:28 - Assessment and plan (1) Paroxysmal atrial fibrillation Current Visit: No Status: Acute Assessment and plan: Patient presented with chest discomfort, most likely symptomatic A. fib. Responded to nitroglycerin Troponin negative CXR no acute cardiopulmonary process heart catheterization in apr 2017 -Cardiology recommendations are appreciated -imdur and metoprolol added during this hospitalization -continue patient's medication of diltiazem, flecainide, pradaxa, aspirin, atorvastatin, losartan -continuous telemetry (2) Chest discomfort Current Visit: Yes Status: Acute Assessment and plan: Patient has known A. Fib on anticoagulation with Pradaxa, rate controlled with flecainide and diltiazem -see plan above Qualifiers: Atrial fibrillation type: paroxysmal Qualified Code(s): I48.0 - Paroxysmal atrial fibrillation (3) Elevated lipase Current Visit: Yes Status: Acute Assessment and plan: Patient had a mild elevated lipase 120 with left upper quadrant tenderness. Acute pancreatitis ruled out Today lipase 70 and she denies abdominal pain, nausea, vomiting patient is afebrile, WBC WNL -Abdominal ultrasound canceled (4) Renal insufficiency Current Visit: Yes Status: Acute Assessment and plan: RHYS at admission, creatinine was 1.41 resolved, creatinine now 0.95 -IV fluids -avoid nephrotoxic agents -continued renal monitoring (5) Diabetes Current Visit: No Status: Chronic Assessment and plan: History of diabetes -continue low-dose sliding scale insulin Qualifiers: Diabetes mellitus type: type 2 Diabetes mellitus complication status: with unspecified complications Diabetes mellitus administrative manager insulin use: with administrative manager use Qualified Code(s): E11.8 - Type 2 diabetes mellitus with unspecified complications; Z79.4 - detention (current) use of insulin (6) HTN (hypertension) Current Visit: No Status: Chronic Assessment and plan: History of hypertension -continue home medications Qualifiers: Hypertension type: essential hypertension Qualified Code(s): I10 - Essential (primary) hypertension (7) CKD (chronic kidney disease) stage 3, GFR 30-59 ml/min Current Visit: No Status: Chronic Assessment and plan: Creatinine within normal limits -avoid nephrotoxic agents -continue to renal function monitoring (8) DVT prophylaxis Current Visit: No Status: Acute Assessment and plan: Patient is on Pradaxa - Subjective Interval history: Sitting up comfortably in bed alert and oriented in no acute distress denies chest pain, shortness of breath, abdominal pain, nausea, vomiting - Subjective Interval history: The patient is asymptomatic, denies palpitations, no chest pain or shortness of breath, no abdominal pain fevers or chills, no dysuria - Constitutional Vitals: Temp Pulse Resp BP Pulse Ox 98.0 F 61 15 113/58 96 05/27/17 16:23 05/27/17 16:23 05/27/17 16:23 05/27/17 16:23 05/27/17 16:23 General appearance: Present: A&O X 3, no acute distress, answers questions appropriately - Head Head exam: Present: atraumatic, normocephalic - Eye Eye exam: Present: PERRL, conjuntiva pink, sclera anicteric Pupils: Present: PERRL - Neck Neck exam general surgery: Present: supple, trachea midline. Absent: lymphadenopathy - Respiratory Respiratory exam: Present: CTAB. Absent: accessory muscle use, rales, rhonchi, wheezes - Cardiovascular Cardiovascular exam: Present: RRR, +S1, +S2. Absent: diastolic murmur, gallop, rubs, systolic murmur - GI/Abdominal GI/Abdominal exam: Present: normal bowel sounds, soft, no peritoneal signs. Absent: distended, tenderness - Extremities Exam Extremities exam: Present: warm, radial pulses palpable and symmetrical. Absent : calf tenderness, cyanotic, pedal edema - Neurological Exam Neurological exam: Present: CN II-XII intact, oriented X3, no focal deficits. Absent: pronater drift, facial droop, speech deficit - Skin Skin exam: Present: dry, intact Internal Medicine: Result - Labs CBC & Chem 7: 05/27/17 04:42 05/27/17 04:42 Labs: Short CBC 05/27/17 Range/Units 04:42 WBC 5.3 (4.3-11.1) K/mcL Hgb 10.5 L D (11.5-15.4) g/dL Hct 32.0 L (35.3-44.9) % Plt Count 212 (140-400) K/mcL BMP 05/27/17 04:42 Sodium 142 Potassium 4.1 Chloride 113 H Carbon Dioxide 22 BUN 27 H Creatinine 1.15 H Glucose 88 Calcium 8.4 L - ABG Interpretation ABG results: PT/INR, D-dimer PT 13.8 Seconds (9.4-12.1) H 05/25/17 18:13 Consult Discharge Plan - Plan Referrals: Americo Arguello Jr, MD [Primary Care Provider] - (Call your primary care physician office to make a follow up appointment within 5-7 days following discharge. Thank You.)
--- NOTE | 2017-05-27 17:09 | Discharge Summary ---
Date of Encounter: 05/27/17 Time of Encounter: 17:05 - Discharge Diagnosis (1) Paroxysmal atrial fibrillation Priority: Primary Status: Acute Comments: Current Visit: No Status: Acute Assessment and plan: (2) Chest discomfort Current Visit: Yes Status: Acute Assessment and plan: Patient has known A. Fib on anticoagulation with Pradaxa, rate controlled with flecainide and diltiazem -see plan above Qualifiers: Atrial fibrillation type: paroxysmal Qualified Code(s): I48.0 - Paroxysmal atrial fibrillation (3) Elevated lipase Current Visit: Yes Status: Acute Assessment and plan: Patient had a mild elevated lipase 120 with left upper quadrant tenderness. Acute pancreatitis ruled out Today lipase 70 and she denies abdominal pain, nausea, vomiting patient is afebrile, WBC WNL -Abdominal ultrasound canceled (4) Renal insufficiency Current Visit: Yes Status: Acute Assessment and plan: RHYS at admission, creatinine was 1.41 resolved, creatinine now 0.95 -IV fluids -avoid nephrotoxic agents -continued renal monitoring (5) Diabetes Current Visit: No Status: Chronic Assessment and plan: History of diabetes -continue low-dose sliding scale insulin Qualifiers: Diabetes mellitus type: type 2 Diabetes mellitus complication status: with unspecified complications Diabetes mellitus 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 control 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 insulin use: with termite control 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 use Qualified Code(s): E11.8 - Type 2 diabetes mellitus with unspecified complications; Z79.4 - correction (current) use of insulin (6) HTN (hypertension) Current Visit: No Status: Chronic Assessment and plan: History of hypertension -continue home medications Qualifiers: Hypertension type: essential hypertension Qualified Code(s): I10 - Essential (primary) hypertension (7) CKD (chronic kidney disease) stage 3, GFR 30-59 ml/min Current Visit: No Status: Chronic Assessment and plan: Creatinine within normal limits -avoid nephrotoxic agents -continue to renal function monitoring - Discharge Medications Prescriptions: Isosorbide MONOnitrate (24 HR) [Imdur] 30 mg PO DAILY #30 tab.er.24h Metoprolol [Lopressor] 25 mg PO BID #60 tablet Home Medications: Aspirin 81 mg PO DAILY 08/21/16 [History] Dabigatran [Pradaxa] 150 mg PO BID 08/21/16 [History] Diltiazem HCl [Diltiazem 24Hr Cd] 360 mg PO DAILY 08/21/16 [History] Insulin Glargine [Lantus] 27 unit SQ HS 08/21/16 [History] Insulin LISPRO [Humalog] 7 - 10 unit SQ TID PRN 08/21/16 [History] Losartan Potassium [Cozaar] 100 mg PO DAILY 08/21/16 [History] Ergocalciferol (VITAMIN D2) [Vitamin D2] 50,000 unit PO WESA 04/22/17 [History] Atorvastatin [Lipitor] 80 mg PO HS #60 tablet 04/26/17 [Rx] Flecainide 150 mg PO Q12HR #90 tablet 04/26/17 [Rx] Isosorbide MONOnitrate (24 HR) [Imdur] 30 mg PO DAILY #30 tab.er.24h 05/27/17 [ Rx] Metoprolol [Lopressor] 25 mg PO BID #60 tablet 05/27/17 [Rx] Allergies/Adverse Reactions: 3 Allergy/AdvReac Type Severity Reaction Status Date / Time Penicillins [PCN] Allergy Anaphylaxis Verified 04/22/17 08:49 Sulfa (Sulfonamide Allergy Hives Verified 04/22/17 08:49 Antibiotics) Procedures/tests Complete & Pending: Procedures Performed prior 72 hours Category Date Time Status EKG [ECG 12 lead ECG] [ECG] Stat Y 05/26/17 10:08 Completed Date of admission: 05/25/17 19:55 Primary care physician: Americo Arguello Jr, MD Consults: 05/27/17 12:20 Consult to Electrophysiology (EP) [CONS] Routine Consulting Provider: [facility] [place] Reason for Consult: PAF Call Completed: Yes - Patient Status Disposition: Home, Self-Care Condition: Good Overall status at discharge: patient is back to baseline - Discharge Instructions Follow Up With: Americo Arguello Jr, MD [Primary Care Provider] - (Call your primary care physician office to make a follow up appointment within 5-7 days following discharge. Thank You.) Additional Instructions: Follow-up with primary care physician within the next 7 days. Follow up with cardiology within the next 1-2 weeks. Continue metoprolol and Imdur. - Diet and Activity Activity: increase activity as tolerated Diet: diabetic diet Hospital course: Ms. Marquez is a 71 year old female with a past medical history of paroxysmal atrial fibrillation on flecainide and Pradaxa, diabetes type 2 not insulin- dependent, GERD, hypertension, hyperlipidemia, osteoarthritis, who presented with palpitations for two hours associated with left sided chest pain. She was found to be in atrial fibrillation. HR 80-100. She since converted back to SR and she feels much better. She is s/p flecainide increase and cardioversion last month. She reported this is her first reoccurrence. C/o feeling very symptomatic with afib but she was concerned about her chest discomfort. She has a history of moderate non- obstructive CAD seen on [facility] 2016, HTN, HLD, and GERD. BB added. Currently on CCB, BB, and Flecainide. EP consulted for further recommendations on antiarrhythmic therapy. Pt reports feeling well today, denies currently chest pain or dyspnea. Patient presented with chest discomfort, most likely symptomatic A. fib. Responded to nitroglycerin Troponin negative CXR no acute cardiopulmonary process heart catheterization in apr 2017 -Cardiology ended to start imdur and metoprolol during this hospitalization -continue patient's medication of diltiazem, flecainide, pradaxa, aspirin, atorvastatin, losartan The patient mentioned that she would prefer to be discharged and to continue metoprolol, the option to help flecainide was given and to start sotalol but the patient prefers to keep the therapy started during this hospitalization - Time Spent with Patient Total time spent providing and/or coordinating discharge services: Greater than 30 minutes (40 min) - Constitutional Vitals: Temp Pulse Resp BP Pulse Ox 98.0 F 61 15 113/58 96 05/27/17 16:23 05/27/17 16:23 05/27/17 16:23 05/27/17 16:23 05/27/17 16:23 General appearance: Present: A&O X 3, no acute distress, answers questions appropriately - Head Head exam: Present: atraumatic, normocephalic - Eye Eye exam: Present: PERRL, conjuntiva pink, sclera anicteric Pupils: Present: PERRL - Neck Neck exam general surgery: Present: supple, trachea midline. Absent: lymphadenopathy - Respiratory Respiratory exam: Present: CTAB. Absent: accessory muscle use, rales, rhonchi, wheezes - Cardiovascular Cardiovascular exam: Present: RRR, +S1, +S2. Absent: diastolic murmur, gallop, rubs, systolic murmur - GI/Abdominal GI/Abdominal exam: Present: normal bowel sounds, soft, no peritoneal signs. Absent: distended, tenderness - Extremities Exam Extremities exam: Present: warm, radial pulses palpable and symmetrical. Absent : calf tenderness, cyanotic, pedal edema - Neurological Exam Neurological exam: Present: CN II-XII intact, oriented X3, no focal deficits. Absent: pronater drift, facial droop, speech deficit - Skin Skin exam: Present: dry, intact
== END 2017-05-27 18:20 | disposition home or self-care (01) ==
LOC: EMEROO 17:55 → 3BNU 17:55 → SUATTDRO 19:55 → 3BNU 21:21
PROVIDERS: ADMIT Internal Medicine; ATTEND Internal Medicine

== ENCOUNTER 2017-10-06 10:50 | Observation (INO) ==
[2017-10-06] MEDS ORDERED: Aspirin 81 MG TAB.CHEW PO ONE (11:01)
--- NOTE | 2017-10-06 11:10 | Emergency Department Note ---
Disposition Clinical Impression: Paroxysmal atrial fibrillation, Bradycardia, CKD (chronic kidney disease) stage 3, GFR 30-59 ml/min CAD (coronary artery disease) Qualifiers: Coronary Disease-Associated Artery/Lesion type: unspecified vessel or lesion type [place] vs. transplanted heart: [place] heart Associated angina: with unspecified angina Qualified Code(s): I25.119 - Atherosclerotic heart disease of [place] coronary artery with unspecified angina pectoris Disposition: Admitted As Inpatient Forms: ED Satisfaction Letter General Adult HPI - General Chief complaint: ED Chest Pain Stated complaint: bradycardia Time Seen by Provider: 10/06/17 10:54 Source: patient, family Mode of arrival: wheelchair Limitations: no limitations Nursing Notes Reviewed: Yes Vital Signs Reviewed: Yes - History of Present Illness HPI Narrative: Patient is a 72-year-old white female with a history of paroxysmal A. fib currently on Flecanide, metoprolol and Cardizem as well as per DACs who is a patient of Dr. Siu. Patient has been admitted last time was in May of last year and underwent heart catheter at that time showing 2 vessel moderate CAD. No intervention was performed. Patient with an EF of 65%. Patient was continuing to have symptomatic paroxysmal atrial fibrillation and upon discharge metoprolol had been added to her medication regimen. Patient states that she is scheduled for an ablation on the of this month with Dr. Siu and on was sent to [place] for CT scanning of her chest. Patient states she received contrast dye there,and her states that she has not been feeling well since the contrast dye was administered. Unclear as to why patient had to go to [place] for this testing and she is not certain of the specifics of the test. Patient says since Saturday she has been having intermittent episodes where she feels like her heart rate gets very fast and gets some chest tightness associated with this and some mild nausea. Patient states she has been tracking her heart rate and over the last 24 hours is been going back and forth from a tachycardia to bradycardia and states that her heart rate was 40 bpm this morning. Patient came in to triage and was brought directly to a room for evaluation. Patient denies any syncope, no diaphoresis, no abdominal pain or flank pain. Denies any other associated symptoms today. Pain Scale: 5 - Related Data Home Medications Medication Instructions Recorded Confirmed Aspirin 81 mg PO DAILY 08/21/16 05/26/17 Dabigatran [Pradaxa] 150 mg PO BID 08/21/16 05/26/17 Diltiazem HCl [Diltiazem 24Hr Cd] 360 mg PO DAILY 08/21/16 05/26/17 Insulin Glargine [Lantus] 27 unit SQ HS 08/21/16 05/26/17 Insulin LISPRO [Humalog] 7 - 10 unit SQ TID PRN 08/21/16 05/26/17 Losartan Potassium [Cozaar] 100 mg PO DAILY 08/21/16 05/26/17 Ergocalciferol (VITAMIN D2) 50,000 unit PO WESA 04/22/17 05/26/17 [Vitamin D2] Previous Rx's Medication Instructions Recorded Atorvastatin [Lipitor] 80 mg PO HS #60 tablet 04/26/17 Flecainide 150 mg PO Q12HR #90 tablet 04/26/17 Isosorbide MONOnitrate (24 HR) 30 mg PO DAILY #30 tab.er.24h 05/27/17 [Imdur] Metoprolol [Lopressor] 25 mg PO BID #60 tablet 05/27/17 Allergies Allergy/AdvReac Type Severity Reaction Status Date / Time Penicillins [PCN] Allergy Anaphylaxis Verified 04/22/17 08:49 Sulfa (Sulfonamide Allergy Hives Verified 04/22/17 08:49 Antibiotics) All systems ED: reviewed and negative except as stated. Review of Systems: As Per HPI Past Medical History - Past Medical History Medical history: Reports: arthritis, atrial fibrillation, diabetes, GERD, hyperlipidemia, hypertension Surgical history: Reports: carotid endarterectomy, cataract, orthopedic, other, other Psychiatric history: Reports: no psych history CATERING COORDINATOR history: Reports: no CATERING COORDINATOR history - Social History Smoking Status: Never smoker Smokeless Tobacco Status: No Alcohol use: Reports: none Drug use: Reports: none Physical Exam - General Limitations: no limitations General appearance: alert, in no apparent distress - Head Head exam: atraumatic, normocephalic, normal inspection - Eye Eye exam: Present: normal appearance, PERRL, EOMI - ENT ENT exam: normal exam, normal oropharynx, mucous membranes moist - Neck Neck exam: Present: normal inspection, full ROM - Chest Chest inspection: Present: normal inspection, symmetric chest wall rise - Respiratory Respiratory exam: Present: normal lung sounds bilaterally. Absent: respiratory distress - Cardiovascular Cardiovascular exam: Present: regular rate, irregular rhythm, normal heart sounds. Absent: systolic murmur - Abdominal Exam Abdominal exam: Present: soft, Non-Tender, normal bowel sounds - Extremities Exam Extremities exam: Present: normal inspection. Absent: tenderness, pedal edema, calf tenderness - Back Exam Back exam: Present: normal inspection - Neurological Exam Neurological exam: Present: alert, oriented X3, CN II-XII intact, reflexes normal. Absent: motor sensory deficit - Psychiatric Psychiatric exam: Present: normal affect, normal mood - Skin Skin exam: Present: warm, dry, normal color. Absent: diaphoresis Course Course Narrative: Patient currently in a normal sinus rhythm on repeat EKG. Patient in no acute distress with no acute ischemia seen on repeat EKG. At this time patient's resting comfortably we will administer her morning aspirin and obtain lab evaluation portable chest x-ray and further evaluation. We will continue monitoring her closely for any heart rate or blood pressure changes. Vital Signs Temperature 97.8 F 10/06/17 10:57 Pulse Rate 58 10/06/17 10:57 Respiratory Rate 16 10/06/17 10:57 Blood Pressure 174/84 10/06/17 10:57 O2 Sat by Pulse Oximetry 98 10/06/17 10:57 Temperature 97.8 F 10/06/17 11:04 Pulse Rate 52 10/06/17 12:20 Respiratory Rate 12 10/06/17 12:20 Blood Pressure 164/66 10/06/17 12:20 O2 Sat by Pulse Oximetry 97 10/06/17 12:20 Oxygen Delivery Oxygen Delivery Room Air Medical Decision Making - [facility] Narrative Medical decision making narrative: Patient is a 72-year-old white female history of paroxysmal atrial fibrillation his had periodic admissions in regards to symptoms related to her A. fib. Patient is awaiting cardiac ablation by Dr. Siu on October 21 of this month. Patient states she has not been feeling good since last and has been having periodic episodes of tachycardia as well as bradycardia and reports heart rates as low as 35-40 this morning prior to coming to the emergency room. She is also complaining when she feels her heart race that she feels it generalized anterior chest pressure sensation. Patient is resting comfortably here shortly after arrival she went into a normal sinus rhythm has been normal sinus since that time with a stable blood pressure and her heart rate his ranged from 48 bpm to 60 bpm. Lab evaluation is unremarkable with the exception of a mild elevation in her creatinine and she has received a small fluid bolus for that. EKG does not show any signs of ischemia and her troponin here is negative and her chest x-ray is clear. We will admit her for her paroxysmal A. fib and sinus bradycardia which is symptomatic. Case was discussed with Dr. Rowley who at 12:47 PM and he accepted the patient for admission for further evaluation and management. - Medical Records Medical records reviewed: Yes I reviewed the patient's medical records. - Lab Data Lab results reviewed: Yes I reviewed the patient's lab results. Result diagrams: 10/06/17 11:09 10/06/17 11:12 Lab Results 10/06/17 10/06/17 10/06/17 Range/Units 11:02 11:09 11:09 WBC 6.2 (4.3-11.1) K/mcL RBC 3.96 (3.82-4.97) M/mcL Hgb 13.1 (11.5-15.4) g/dL Hct 40.3 (35.3-44.9) % MCV 101.8 H (83.0-100.0) fL MCH 33.1 (28.0-33.3) pg MCHC 32.5 (31.6-35.5) g/dL RDW 13.2 (11.5-14.5) % Plt Count 292 (140-400) K/mcL MPV 9.5 (9.4-12.4) fL Immature Gran % 0.3 (0-4) % Seg Neutrophils % 64.4 % Lymphocytes % 23.7 % Monocytes % 8.4 % Eosinophils % 2.7 % Basophils % 0.5 % Neutrophils # 4.0 (1.6-8.9) K/mcL Lymphocytes # 1.5 (0.6-4.6) K/mcL Monocytes # 0.5 (0.0-1.3) K/mcL Eosinophils # 0.2 (0.0-0.6) K/mcL Basophils # 0.0 (0.0-0.2) K/mcL PT 13.2 H (9.4-12.1) Seconds INR 1.2 APTT 61.9 H (26.0-36.0) Seconds Sodium (136-145) mEq/L Potassium (3.5-5.1) mEq/L Chloride (98-107) mEq/L Carbon Dioxide (23-29) mEq/L BUN (8-23) mg/dL Creatinine (0.60-1.20) mg/dL Est GFR ( Amer) (> 60) Est GFR (Non-Af Amer) (> 60) BUN/Creatinine Ratio (6-26) Glucose (70-105) mg/dL Calculated Osmolality (280-300) Calcium (8.6-10.3) mg/dL Troponin I (< 0.04) ng/mL B-Natriuretic Peptide 371 H (Less than 100) pg/mL TSH (0.340-5.600) mcIU/mL 10/06/17 Range/Units 11:12 WBC (4.3-11.1) K/mcL RBC (3.82-4.97) M/mcL Hgb (11.5-15.4) g/dL Hct (35.3-44.9) % MCV (83.0-100.0) fL MCH (28.0-33.3) pg MCHC (31.6-35.5) g/dL RDW (11.5-14.5) % Plt Count (140-400) K/mcL MPV (9.4-12.4) fL Immature Gran % (0-4) % Seg Neutrophils % % Lymphocytes % % Monocytes % % Eosinophils % % Basophils % % Neutrophils # (1.6-8.9) K/mcL Lymphocytes # (0.6-4.6) K/mcL Monocytes # (0.0-1.3) K/mcL Eosinophils # (0.0-0.6) K/mcL Basophils # (0.0-0.2) K/mcL PT (9.4-12.1) Seconds INR APTT (26.0-36.0) Seconds Sodium 136 (136-145) mEq/L Potassium 4.6 (3.5-5.1) mEq/L Chloride 106 (98-107) mEq/L Carbon Dioxide 22 L (23-29) mEq/L BUN 30 H (8-23) mg/dL Creatinine 1.31 H (0.60-1.20) mg/dL Est GFR ( Amer) 49 L (> 60) Est GFR (Non-Af Amer) 40 L (> 60) BUN/Creatinine Ratio 23 (6-26) Glucose 218 H (70-105) mg/dL Calculated Osmolality 295 (280-300) Calcium 9.7 (8.6-10.3) mg/dL Troponin I < 0.03 (< 0.04) ng/mL B-Natriuretic Peptide (Less than 100) pg/mL TSH 3.097 (0.340-5.600) mcIU/mL - Radiology Data Radiology results reviewed: Yes I reviewed the patient's radiology results. Chest X-Ray 10/06/17 11:02 IMPRESSION: 1. No acute radiographic abnormality in the chest. D/ / Fidel Lopez MD / Fidel Lopez MD Interpreting Provider: Fidel Lopez MD - EKG Data EKG #1 EKG results narrative: Initial EKG obtained in the emergency department interpreted by myself without the benefit of formal cardiology interpretation shows what appears to be initially A. fib then establishment of a sinus rhythm on the rhythm strip along the bottom of the EKG. She also has some ST depression in leads V5 and V6 compared to a prior EKG. We have printed off some rhythm strips here in the emergency department that showed the patient seems to be in a sinus rhythm which is consistent with her paroxysmal A. fib history. We will repeat an EKG. Prior EKGs for comparison is from 05/25/2017. EKG #2 EKG attestation: Yes I reviewed and interpreted this EKG. EKG results narrative: EKG #2 obtained in the emergency room shortly after arrival shows a sinus bradycardia at 59 bpm with first-degree AV block. No ST depression is seen and this repeat EKG. Pattern seem consistent with history of paroxysmal A. fib.
[2017-10-06 11:19] LABS: Basophils % 0.5 %; Eosinophils # 0.2 K/mcL (0.0-0.6); Eosinophils % 2.7 %; Hematocrit 40.3 % (35.3-44.9); Hemoglobin 13.1 g/dL (11.5-15.4); Immature Granulocytes % 0.3 % (0-4); Lymphocytes # 1.5 K/mcL (0.6-4.6); Lymphocytes % 23.7 %; Mean Corpuscular HGB Conc 32.5 g/dL (31.6-35.5); Mean Corpuscular Hemoglobin 33.1 pg (28.0-33.3); Mean Corpuscular Volume 101.8 fL (83.0-100.0); Mean Platelet Volume 9.5 fL (9.4-12.4); Monocytes # 0.5 K/mcL (0.0-1.3); Monocytes % 8.4 %; Platelet Count 292 K/mcL (140-400); Red Blood Count 3.96 M/mcL (3.82-4.97); Red Cell Distribution Width 13.2 % (11.5-14.5); Segmented Neutrophils % 64.4 %
[2017-10-06 11:24] LABS: INR 1.2; Prothrombin Time 13.2 Seconds (9.4-12.1)
[2017-10-06 11:27] LABS: Activated Partial Thrombo Time 61.9 Seconds (26.0-36.0)
[2017-10-06 11:37] LABS: BUN/Creatinine Ratio 23 (6-26); Blood Urea Nitrogen 30 mg/dL (8-23); Calcium 9.7 mg/dL (8.6-10.3); Carbon Dioxide 22 mEq/L (23-29); Chloride 106 mEq/L (98-107); Glucose 218 mg/dL (70-105); Osmolality,Calculated 295 (280-300); Potassium 4.6 mEq/L (3.5-5.1); Sodium 136 mEq/L (136-145); Troponin I < 0.03 ng/mL (< 0.04); eGFR For African Americans 49 (> 60); eGFR For Non-African Americans 40 (> 60)
[2017-10-06 11:51] LABS: Thyroid Stimulating Hormone 3.097 mcIU/mL (0.340-5.600)
[2017-10-06] MEDS ORDERED: 0.9 % Sodium Chloride 500 ML IVC ONE (12:34)
[2017-10-06] MEDS ORDERED: Naloxone 0.4 MG/ML INJ IVP PRN (13:10)
[2017-10-06] MEDS ORDERED: Acetaminophen 325 MG TABLET PO PRN (13:10)
[2017-10-06] MEDS ORDERED: Dextrose Gel 15 GM/37.5 ML TUBE PO PRN ×2 (13:16)
[2017-10-06] MEDS ORDERED: *HR* Dextrose 50 % in Water (Syg) 50 ML SYRINGE IVP PRN (13:16)
[2017-10-06] MEDS ORDERED: D5% in Water 1,000 ML IVC PRN (13:16)
--- NOTE | 2017-10-06 13:24 | Internal Med History&Physical ---
<AmosWilma Aggarwal - Last Filed: 10/06/17 13:35> Date of Encounter: 10/06/17 Time of Encounter: 13:22 Assessment and Plan (1) Paroxysmal atrial fibrillation Current visit: Yes Status: Acute per hx. Follows with Dr. Siu. Presented with palpitations and bradycardia ( patient reports HR in 30s-40s at home). Holding home BB, CCB and flecainide. Continue home Pradaxa. NPO at midnight in light of possible ablation, DCCV. Cardiology consulted (2) CKD (chronic kidney disease) stage 3, GFR 30-59 ml/min Current visit: Yes Status: Chronic per hx. Renal functions appears slightly elevated from baseline. Had CT of chest with contrast late last week in preparation for upcoming ablation, possibly contributing to worsening renal function. Received IV fluids in ED. Avoid nephrotoxic agents as possible. Holding home ARB for now. Monitor repeat renal function (3) HTN (hypertension) Current visit: No Status: Chronic per hx. BP uncontrolled while in ED. Holding home BB, CCB with bradycardia. Holding home ARB with acute worsening renal failure. Add PRN hydralazine. MOnitor BP and titrate PRN. Resume home BP medications as heart rate and renal function improve Qualifiers: Hypertension type: essential hypertension Qualified Code(s): I10 - Essential (primary) hypertension (4) CAD (coronary artery disease) Current visit: Yes Status: Acute per hx. 04/2017 [facility] with moderate two vessel coronary artery disease, EF 65%. With epigastric pain as noted below. Troponin negative, EKG without acute ST changes. Cont home ASA, statin Qualifiers: Coronary Disease-Associated Artery/Lesion type: unspecified vessel or lesion type [place] vs. transplanted heart: [place] heart Associated angina: with unspecified angina Qualified Code(s): I25.119 - Atherosclerotic heart disease of [place] coronary artery with unspecified angina pectoris (5) Diabetes Current visit: No Status: Chronic per hx. Control unknown. Continue home long-acting at lower dose as diarrhea is likely more restricted. Add low-dose SSI. 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 Add PPI Qualifiers: Esophagitis presence: esophagitis presence not specified Qualified Code(s) : K21.9 - Gastro-esophageal reflux disease without esophagitis (7) DVT prophylaxis Current visit: No Status: Acute pradaxa Internal Medicine - H&P: HPI Chief complaint: palpitations Admitted From: Home Plans for Post Hospital Care: Home History of present illness: Ms. Marquez is a 72 year old female with PMH paroxysmal A. fib, CAD, hypertension and CKD who presented to [facility] on 10[facility]06[facility]17 with complaints of palpitations and bradycardia. She was found to be in A. fib with slow ventricular response, she was paced in observation status for further workup and treatment. Information obtained from chart review and patient report. Patient has known A. fib, follows with Dr. Siu. She is cuddled for ablation later on this month. Says she could feel her heart fluttering earlier today so she took her pulse and found her heart rates to be in the 30s to 40s. No alleviating or aggravating factors. She reports chest tightness which she thinks is secondary to her acid reflux. No CP or SOB Past Med Surg Social Fam HX - Past Medical History Medical history: arthritis, atrial fibrillation, diabetes, GERD, hyperlipidemia , hypertension Psychiatric history: no psych history - Past Surgical History Surgical History: carotid endarterectomy, cataract, orthopedic, other, other - Social History Smoking Status: Never smoker Smokeless Tobacco Status: No Alcohol use: none Drug use: none - Family History Father Family Member Ethnicity: Non- Living Status: Hx Family Cardiac Disorders: Yes ([place]) Hx Family Endocrine Disorder: Yes (DM) Mother Family Member Ethnicity: Non- Living Status: Hx Family Cardiac Disorders: Yes (HD, HTN) Hx Family Endocrine Disorder: Yes (DM) Sister Family Member Ethnicity: Non- Living Status: Still Living Hx Family Endocrine Disorder: Yes (DM) Internal Medicine - H&P: Meds Aspirin 81 mg PO DAILY 08/21/16 [History] Dabigatran [Pradaxa] 150 mg PO BID 08/21/16 [History] Diltiazem HCl [Diltiazem 24Hr Cd] 360 mg PO DAILY 08/21/16 [History] Insulin Glargine [Lantus] 27 unit SQ HS 08/21/16 [History] Insulin LISPRO [Humalog] 7 - 10 unit SQ TID PRN 08/21/16 [History] Losartan Potassium [Cozaar] 100 mg PO DAILY 08/21/16 [History] Atorvastatin [Lipitor] 80 mg PO HS #60 tablet 04/26/17 [Rx] Flecainide 150 mg PO Q12HR #90 tablet 04/26/17 [Rx] Metoprolol [Lopressor] 25 mg PO BID #60 tablet 05/27/17 [Rx] 3 Allergy/AdvReac Type Severity Reaction Status Date / Time Penicillins [PCN] Allergy Anaphylaxis Verified 04/22/17 08:49 Sulfa (Sulfonamide Allergy Hives Verified 04/22/17 08:49 Antibiotics) All Systems PM: A 10-system review of systems was performed and is negative for pertinent findings except as documented above in the HPI. - Constitutional Constitutional: no chills, no fever(s), no night sweats - EENT Eyes: no change in vision, no discharge, no pain, no photophobia Ears: no ear discharge, no ear pain, no tinnitus Nose, mouth and throat: no dysphagia, no nasal discharge, no neck pain, no sore throat - Cardiovascular Cardiovascular ROS IM: palpitations, no chest pain, no diaphoresis, no dyspnea, no lightheadedness, no syncope - Respiratory Respiratory: no cough, no dyspnea, no wheezing, no excessive phlegm production - Gastrointestinal Gastrointestinal: no abdominal pain, no diarrhea, no hematemesis, no hematochezia, no melena, no nausea, no vomiting - Genitourinary Genitourinary: no change in urinary stream, no dysuria, no flank pain, no hematuria - Musculoskeletal Musculoskeletal ROS IM: no numbness, no tingling - Integumentary Integumentary IM: no rash, no unusual bruising - Neurological Neurological ROS: no confusion, no convulsions, no focal weakness, no numbness, no tingling, no tremor(s) - Hematologic/Lymphatic Hematologic/Lymphatic: no easy bruising - Constitutional Vitals: Temp Pulse Resp BP Pulse Ox 97.8 F 58 17 158/64 100 10/06/17 11:04 10/06/17 13:21 10/06/17 13:21 10/06/17 13:21 10/06/17 13:21 General appearance: Present: A&O X 3, no acute distress - Head Head exam: Present: atraumatic, normocephalic - Eye Eye exam: Present: PERRL, conjuntiva pink, sclera anicteric Pupils: Present: PERRL - Neck Neck exam general surgery: Present: supple, trachea midline. Absent: lymphadenopathy - Respiratory Respiratory exam: Present: CTAB. Absent: accessory muscle use, rales, rhonchi, wheezes - Cardiovascular Cardiovascular exam: Present: RRR, +S1, +S2. Absent: diastolic murmur, gallop, rubs, systolic murmur - GI/Abdominal GI/Abdominal exam: Present: normal bowel sounds, soft, no peritoneal signs. Absent: distended, tenderness - Extremities Exam Extremities exam: Present: warm, radial pulses palpable and symmetrical. Absent : calf tenderness, cyanotic, pedal edema - Neurological Exam Neurological exam: Present: CN II-XII intact, oriented X3, no focal deficits. Absent: pronater drift, facial droop, speech deficit - Skin Skin exam: Present: dry, intact Internal Med - H&P Results - Labs CBC & Chem 7: 10/06/17 11:09 10/06/17 11:12 <John Rowley - Last Filed: 10/06/17 19:55> Date of Encounter: 10/06/17 Internal Medicine - H&P: HPI History of present illness: Ms. Marquez is a 72 year old female All Systems PM: A 10-system review of systems was performed and is negative for pertinent findings except as documented above in the HPI. - Constitutional Vitals: Temp Pulse Resp BP Pulse Ox 97.8 F 63 17 147/68 95 10/06/17 19:41 10/06/17 19:41 10/06/17 19:41 10/06/17 19:41 10/06/17 19:41 Internal Med - H&P Results - Labs CBC & Chem 7: 10/06/17 11:09 10/06/17 11:12 Labs: Cardiac Enzymes 10/06/17 Range/Units 16:54 Troponin I < 0.03 (< 0.04) ng/mL - Attending Attestation For this encounter, I have reviewed the CHAIRLIFT OPERATOR or PA documentation, treatment plan, and medical decision making. I agree with the documentation above. John Rowley MD
[2017-10-06] MEDS: Insulin LISPRO 300 UNITS/3 ML VIAL SQ SCH ×2 (16:45→20:56)
[2017-10-06] MEDS ORDERED: NON-FORMULARY MEDICATION 1 EACH EACH (Insulin Glargine [Lantus] 20 UNIT) SQ SCH (21:00)
[2017-10-06] MEDS: Insulin DETEMIR 100 UNIT/ML X5UNITS SQ SCH (21:12)
[2017-10-06] MEDS: *HR* Dabigatran 150 MG CAPSULE PO SCH (21:12)
[2017-10-07] MEDS: Insulin LISPRO 300 UNITS/3 ML VIAL SQ SCH ×4 (07:33→21:26)
[2017-10-07 08:14] LABS: Hematocrit 36.7 % (35.3-44.9); Hemoglobin 11.9 g/dL (11.5-15.4); Mean Corpuscular HGB Conc 32.4 g/dL (31.6-35.5); Mean Corpuscular Hemoglobin 32.9 pg (28.0-33.3); Mean Corpuscular Volume 101.4 fL (83.0-100.0); Mean Platelet Volume 9.8 fL (9.4-12.4); Platelet Count 251 K/mcL (140-400); Red Blood Count 3.62 M/mcL (3.82-4.97); Red Cell Distribution Width 13.1 % (11.5-14.5)
[2017-10-07 08:22] LABS: BUN/Creatinine Ratio 25 (6-26); Blood Urea Nitrogen 24 mg/dL (8-23); Calcium 9.6 mg/dL (8.6-10.3); Carbon Dioxide 24 mEq/L (23-29); Chloride 108 mEq/L (98-107); Glucose 89 mg/dL (70-105); Osmolality,Calculated 292 (280-300); Potassium 4.5 mEq/L (3.5-5.1); Sodium 139 mEq/L (136-145); eGFR For African Americans > 60 (> 60); eGFR For Non-African Americans 57 (> 60)
[2017-10-07] MEDS: Aspirin 81 MG TAB.CHEW PO SCH (12:00)
[2017-10-07] MEDS: *HR* Dabigatran 150 MG CAPSULE PO SCH ×2 (12:00→20:09)
--- NOTE | 2017-10-07 13:34 | Cardiology Consult Note ---
<Julio Zaman - Last Filed: 10/07/17 15:12> Date of Encounter: 10/07/17 Time of Encounter: 10:00 Assessment and Plan (1) Bradycardia Current Visit: Yes Status: Acute HR noted to be as low as upper 30's at home. No significant symptoms per patient. Initial EKG shows NSR. No ST changes. Noted to have HR in the upper 40' s while in ED. She is not clearly having symptoms. AV francisco javier blockers were held. Avg HR 63 bpm over last 12 hours. Lowest HR 50 bpm at 0230 am . Will slowly restart home meds at lower dose to avoid recurrent afib. Continue to monitor. Awaiting ablation. (2) Atrial fibrillation Current Visit: Yes Status: Acute H/o PAF. Controlled with flecainide, CCB, and bb. Medication held due to concern for bradycardia. Recommend continuing flecainide and lower dose CCB. HR currently 60-70. Currently NSR. No afib seen. Patient has cryoablation scheduled 10/21/17. Will consider EP consult if recurrent problems or if felt cryoablation could be done during stay. Qualifiers: Atrial fibrillation type: paroxysmal Qualified Code(s): I48.0 - Paroxysmal atrial fibrillation (3) CAD (coronary artery disease) Current Visit: Yes Status: Acute H/o moderate non-ostructive CAD on [facility]. Continue asa, statin. No bb due to bradycardia. Qualifiers: Coronary Disease-Associated Artery/Lesion type: unspecified vessel or lesion type [place] vs. transplanted heart: [place] heart Associated angina: with unspecified angina Qualified Code(s): I25.119 - Atherosclerotic heart disease of [place] coronary artery with unspecified angina pectoris (4) Chest pain Current Visit: No Status: Acute Atypical chest discomfort. Likely GERD related. [facility] 04/2017- moderate non-obstructive CAD. 40% stenosis mLAD, 50% stenosis mRCA. TTE 04/22/17- EF 60-65%. Normal LV function and normal RV function. No significant valvular disease. No significant PHTN. Troponin negative x3. EKG with no acute changes. Continue medical management. Qualifiers: Chest pain type: unspecified Qualified Code(s): R07.9 - Chest pain, unspecified Discussion w patient/family: The assessment and plan as outlined above was discussed with the patient and/or family members who expressed understanding and agreement. All questions were answered. Thank you for involving us in the care of your patient. Please call with any questions. History of Present Illness Consult date: 10/07/17 Requesting physician: John Rowley Consult reason: bradycardia Chief complaint: Low HR on pulse ox. Chest discomfort. History of present illness: Ms. Marquez is a 72 year old female with a past medical history of atrial fibrillation on flecainide, moderate non-obstructive CAD, HTN, HLD. She presented to the hospital with the c/o low heart rates on her SPO2 monitor at home. HR dropping in the upper 30's-40's at times. She denied dizziness or lightheadedness. Reports feeling a little "funny" in her chest. C/o acid reflux symptoms this morning. Denies exertional chest discomfort. Denies orthopnea, PND , or edema. Denies palpitations. Past Med Surg Social Fam HX - Past Medical History Attestation: Yes The following information was validated with the patient. Medical history: arthritis, atrial fibrillation, coronary artery disease, diabetes, GERD, hyperlipidemia, hypertension Psychiatric history: no psych history - Past Surgical History Surgical History: carotid endarterectomy, cataract, orthopedic, other, other - Social History Smoking Status: Never smoker Smokeless Tobacco Status: No Alcohol use: none Drug use: none - Family History Father Family Member Ethnicity: Non- Living Status: Hx Family Cardiac Disorders: Yes ([place]) Hx Family Endocrine Disorder: Yes (DM) Mother Family Member Ethnicity: Non- Living Status: Hx Family Cardiac Disorders: Yes (HD, HTN) Hx Family Endocrine Disorder: Yes (DM) Sister Family Member Ethnicity: Non- Living Status: Still Living Hx Family Endocrine Disorder: Yes (DM) Medications and Allergies Aspirin 81 mg PO DAILY 08/21/16 [History] Dabigatran [Pradaxa] 150 mg PO BID 08/21/16 [History] Diltiazem HCl [Diltiazem 24Hr Cd] 360 mg PO DAILY 08/21/16 [History] Insulin Glargine [Lantus] 27 unit SQ HS 08/21/16 [History] Insulin LISPRO [Humalog] 7 - 10 unit SQ TID PRN 08/21/16 [History] Losartan Potassium [Cozaar] 100 mg PO DAILY 08/21/16 [History] Atorvastatin [Lipitor] 80 mg PO HS #60 tablet 04/26/17 [Rx] Flecainide 150 mg PO Q12HR #90 tablet 04/26/17 [Rx] Metoprolol [Lopressor] 25 mg PO BID #60 tablet 05/27/17 [Rx] 3 Allergy/AdvReac Type Severity Reaction Status Date / Time Penicillins [PCN] Allergy Anaphylaxis Verified 04/22/17 08:49 Sulfa (Sulfonamide Allergy Hives Verified 04/22/17 08:49 Antibiotics) All Systems Review: The remainder of the systems were reviewed and are negative Physical Examination Vital Signs, Last 4 Hours Temp Pulse Resp BP Pulse Ox 10/07/17 11:25 97.8 F 91 16 149/80 96 General: Conversant, No Apparent Distress HEENT: Atraumatic, Normocephaly, Mucus Membranes Moist Neck: No JVD, Normal carotid pulses Cardiac: Reg Rate and Rhythm, Normal S1 and S2, No Murmur Lungs: Normal Breath Sounds, No Wheeze, Rales, Rhonchi Neuro: Alert and responsive, No focal deficits noted Abdomen: Soft, Non-Tender Skin: No rashes noted on visualized skin Musculoskeletal: No Chest Wall Tenderness Extremities: No Clubbing, No Cyanosis, No Edema, Normal Pulses Results 10/07/17 06:32 10/07/17 06:32 Lab Results 10/06/17 10/06/17 10/07/17 16:54 23:31 06:32 WBC 4.2 L Hgb 11.9 Hct 36.7 Plt Count 251 Sodium Potassium Chloride Carbon Dioxide BUN Creatinine Glucose Calcium Troponin I < 0.03 < 0.03 10/07/17 06:32 WBC Hgb Hct Plt Count Sodium 139 Potassium 4.5 Chloride 108 H Carbon Dioxide 24 BUN 24 H Creatinine 0.96 Glucose 89 Calcium 9.6 Troponin I - Imaging and Cardiology Stress Test: report reviewed Echo: report reviewed - EKG Interpretation EKG results cardiology: personally reviewed Consult Discharge Plan - Plan Referrals: Americo Arguello Jr, MD [Primary Care Provider] - <Jeanna Sinclair - Last Filed: 10/08/17 11:54> Date of Encounter: 10/08/17 - Attending Attestation I examined this patient and my medical decision-making was reviewed with the CAMPUS WELLNESS COORDINATOR. I agree with the documented findings, disposition and treatment plan as described. Ms. Marquez presents to the hospital with concerns for slow heart rates and a "funny feeling in the chest". She reports checking her heart rate with a monitor and it was in the 30's and irregular. However, upon presentation ECG demonstrated sinus bradycardia with HR 55 and 59 bpm. Suspect symptoms were possibly related to a paroxysm of atrial fibrillation. Troponins negative, no new ischemic ECG findings, echo with normal LV systolic function and normal RV function. Primary team initially held all medication but we restarted her Flecainide and cardizem. Will increase cardizem to home dose of 360mg daily and hold metoprolol for now - patient perceived side effects. Average HR on telemetry has been 73 bpm. She has a planned AFIB cryoablation scheduled 2017. Will discuss with Dr. Aniket Siu. Assessment and Plan Discussion w patient/family: The assessment and plan as outlined above was discussed with the patient and/or family members who expressed understanding and agreement. All questions were answered. Thank you for involving us in the care of your patient. Please call with any questions. History of Present Illness History of present illness: Ms. Marquez is a 72 year old female All Systems Review: The remainder of the systems were reviewed and are negative Results 10/07/17 06:32 10/07/17 06:32
[2017-10-07] MEDS: Diltiazem CD (24hr) 180 MG CAPSULE PO SCH (14:32)
--- NOTE | 2017-10-07 17:08 | Internal Med Progress Note ---
Date of Encounter: 10/07/17 Time of Encounter: 17:06 - Assessment and plan (1) Paroxysmal atrial fibrillation Current Visit: Yes Status: Acute Assessment and plan: per hx. Follows with Dr. Siu. Presented with palpitations and bradycardia ( patient reports HR in 30s-40s at home). TTE with EF 60%, mild diastolic dysfunction, no wall motion abnormalities. Home flecanide and CCB continued ( at lower dose). Has cryoablation scheduled 10/21/17. Cardiology considering EP consult if recurrent problems or if felt cryoablation could be done during stay. Cont home Pradaxa (2) CKD (chronic kidney disease) stage 3, GFR 30-59 ml/min Current Visit: Yes Status: Chronic Assessment and plan: per hx. Renal functions appears slightly elevated from baseline. Had CT of chest with contrast late last week in preparation for upcoming ablation, possibly contributing to worsening renal function. Received IV fluids in ED. Avoid nephrotoxic agents as possible. Holding home ARB for now. Monitor repeat renal function (3) HTN (hypertension) Current Visit: No Status: Chronic Assessment and plan: per hx. BP uncontrolled while in ED. Holding home BB with bradycardia. Cont home ARB. Monitor BP and titrate PRN. Qualifiers: Hypertension type: essential hypertension Qualified Code(s): I10 - Essential (primary) hypertension (4) CAD (coronary artery disease) Current Visit: Yes Status: Acute Assessment and plan: per hx. 04/2017 [facility] with moderate two vessel coronary artery disease, EF 65%. With epigastric pain as noted below. Troponin negative, EKG without acute ST changes. Cont home ASA, statin Qualifiers: Coronary Disease-Associated Artery/Lesion type: unspecified vessel or lesion type [place] vs. transplanted heart: [place] heart Associated angina: with unspecified angina Qualified Code(s): I25.119 - Atherosclerotic heart disease of [place] coronary artery with unspecified angina pectoris (5) Diabetes Current Visit: No Status: Chronic Assessment and plan: per hx. Control unknown. Continue home long-acting at lower dose as diarrhea is likely more restricted. Add low-dose SSI. 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 Cont PPI Qualifiers: Esophagitis presence: esophagitis presence not specified Qualified Code(s) : K21.9 - Gastro-esophageal reflux disease without esophagitis (7) DVT prophylaxis Current Visit: No Status: Acute Assessment and plan: pradaxa - Subjective Interval history: Seen and examined at bedside, says she feels better today. Does not feel as if she is in A. fib. No palpitations. No chest pain or shortness of breath. She is aware of need to re,main NPO at midnight. Says she feels well and has no complaints. - Constitutional Vitals: Temp Pulse Resp BP Pulse Ox 97.7 F 69 15 124/71 98 10/07/17 15:36 10/07/17 15:36 10/07/17 15:36 10/07/17 15:36 10/07/17 15:36 General appearance: Present: A&O X 3, no acute distress - Head Head exam: Present: atraumatic, normocephalic - Eye Eye exam: Present: PERRL, conjuntiva pink, sclera anicteric Pupils: Present: PERRL - Neck Neck exam general surgery: Present: supple, trachea midline. Absent: lymphadenopathy - Respiratory Respiratory exam: Present: CTAB. Absent: accessory muscle use, rales, rhonchi, wheezes - Cardiovascular Cardiovascular exam: Present: RRR, +S1, +S2. Absent: diastolic murmur, gallop, rubs, systolic murmur - GI/Abdominal GI/Abdominal exam: Present: normal bowel sounds, soft, no peritoneal signs. Absent: distended, tenderness - Extremities Exam Extremities exam: Present: warm, radial pulses palpable and symmetrical. Absent : calf tenderness, cyanotic, pedal edema - Neurological Exam Neurological exam: Present: CN II-XII intact, oriented X3, no focal deficits. Absent: pronater drift, facial droop, speech deficit - Skin Skin exam: Present: dry, intact Internal Medicine: Result - Labs CBC & Chem 7: 10/07/17 06:32 10/07/17 06:32 Labs: Short CBC 10/07/17 Range/Units 06:32 WBC 4.2 L (4.3-11.1) K/mcL Hgb 11.9 (11.5-15.4) g/dL Hct 36.7 (35.3-44.9) % Plt Count 251 (140-400) K/mcL BMP 10/07/17 06:32 Sodium 139 Potassium 4.5 Chloride 108 H Carbon Dioxide 24 BUN 24 H Creatinine 0.96 Glucose 89 Calcium 9.6 Cardiac Enzymes 10/06/17 10/06/17 Range/Units 16:54 23:31 Troponin I < 0.03 < 0.03 (< 0.04) ng/mL - ABG Interpretation ABG results: PT/INR, D-dimer PT 13.2 Seconds (9.4-12.1) H 10/06/17 11:02 - Impressions Impressions Echocardiogram 10/07/17 13:20 Impressions: LVEF 60%. Normal LV chamber size, wall thickness and function. Mild left ventricular diastolic dysfunction. Normal right ventricular structure and function. Mildly calcified aortic valve leaflets. No aortic stenosis. No evidence of pulmonary hypertension. No significant valvular dysfunction. Left Ventricular Wall Motion: Rest Echo Findings All wall segments showed normal motion. Findings: Study Quality * Technically adequate exam. ECG Findings * Normal sinus rhythm. Left Ventricle * LVEF 60%. * Normal LV chamber size, wall thickness and function. * Mild left ventricular diastolic dysfunction. Right Ventricle * Normal right ventricular structure and function. Left Atrium * Mildly dilated left atrium. Right Atrium * Mildly dilated right atrium. Interatrial Septum * No evidence of PFO by color Doppler. Aortic Valve * Trileaflet aortic valve. * Mildly calcified aortic valve leaflets. * No aortic regurgitation. * No aortic stenosis. Mitral Valve * Mild mitral annular calcification. * Mildly thickened mitral valve leaflets. * No mitral regurgitation. * No mitral stenosis. Tricuspid Valve * Normal tricuspid valve structure and function. * Trace tricuspid regurgitation. * No evidence of pulmonary hypertension. Pulmonic Valve * Normal pulmonic valve structure and function. * No pulmonic regurgitation. Aorta * Normally sized aortic root. Pericardium * The pericardium appears normal. IVC * Normal IVC dimensions and inspiratory collapse. Pulmonary Artery * Normal visualized portions of the main pulmonary artery. Consult Discharge Plan - Plan Referrals: Americo Arguello Jr, MD [Primary Care Provider] -
[2017-10-07] MEDS: Insulin DETEMIR 100 UNIT/ML X5UNITS SQ SCH (20:10)
[2017-10-08] MEDS: Aspirin 81 MG TAB.CHEW PO SCH (10:03)
[2017-10-08] MEDS: Insulin LISPRO 300 UNITS/3 ML VIAL SQ SCH ×2 (10:03→13:04)
[2017-10-08] MEDS: Diltiazem CD (24hr) 180 MG CAPSULE PO SCH (10:03)
[2017-10-08] MEDS: *HR* Dabigatran 150 MG CAPSULE PO SCH (10:03)
[2017-10-08 12:02] VITALS: BP 128/73
--- NOTE | 2017-10-08 13:33 | Event Note ---
Date of Encounter: 10/08/17 Time of Encounter: 13:30 - Cardiology Event Note Spoke with Dr. Aniket Siu. Patient scheduled for cryoablation 10/21. Patient asking to have procedure done while hospitalized. Unable to reschedule and coordinate non-urgent procedure as an inpatient. Recommend patient continue with planned procedure on 10/21. Continue flecainide and cardizem. Metoprolol will not be restarted at patient request. Will sign off at this time.
--- NOTE | 2017-10-08 14:14 | Discharge Summary ---
- NOTES TO OUTPATIENT PROVIDER Notes to Outpatient Provider: Recommended follow-up within 1-2 weeks for BP recheck and repeat BMP Date of Encounter: 10/08/17 Time of Encounter: 14:22 - Discharge Diagnosis (1) Paroxysmal atrial fibrillation Priority: Primary Status: Acute Comments: per hx. Follows with Dr. Siu. Presented with palpitations and bradycardia ( patient reports HR in 30s-40s at home). TTE with EF 60%, mild diastolic dysfunction, no wall motion abnormalities. Scheduled for outpatient cryoablation 10/21/17. Evaluated by Cardiology who noted logistical difficulties would prevent ablation from being done while inpatient. Continue home flecainide, CCB, Pradaxa. Home BB stopped. Follow-up with cardiology on as previously scheduled. (2) CKD (chronic kidney disease) stage 3, GFR 30-59 ml/min Priority: Secondary Status: Chronic Comments: per hx. Renal functions appears slightly elevated from baseline. Had CT of chest with contrast late last week in preparation for upcoming ablation, possibly contributing to worsening renal function. Renal function normalized with IV fluids and holding home ARB. Resume ARB at discharge. Recommend repeat BMP with PCP within 1-2 weeks. (3) HTN (hypertension) Priority: Secondary Status: Chronic Comments: per hx. BP controlled. Continue home BP medication. Qualifiers: Hypertension type: essential hypertension Qualified Code(s): I10 - Essential (primary) hypertension (4) CAD (coronary artery disease) Priority: Secondary Status: Chronic Comments: per hx. 04/2017 [facility] with moderate two vessel coronary artery disease, EF 65%. Troponin negative, EKG without acute ST changes. Cont home ASA, statin Qualifiers: Coronary Disease-Associated Artery/Lesion type: unspecified vessel or lesion type [place] vs. transplanted heart: [place] heart Associated angina: with unspecified angina Qualified Code(s): I25.119 - Atherosclerotic heart disease of [place] coronary artery with unspecified angina pectoris (5) Diabetes Priority: Secondary Status: Chronic Comments: per hx. blood sugars controlled. 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 Symptoms improved with addition of PPI. Continue at discharge. Recommend follow-up with PCP within 1-2 weeks. Qualifiers: Esophagitis presence: esophagitis presence not specified Qualified Code(s) : K21.9 - Gastro-esophageal reflux disease without esophagitis Hospital course: Ms. Marquez is a 72 year old female with past medical history A. fib, hypertension and CAD who presented to [facility] on 10/06/17 with complaints of palpitations of bradycardia. She was placed in observation status for recheck evaluation. Her heart rate stabilized in the 60s to 80s. She was evaluated by cardiology who recommended continuing home flecainide and CCB in follow-up with primary certified surgical assistant for outpatient [place] ablation as previously planned. Please see assessment and plan for further details. Discharge discussed with: patient - Time Spent with Patient Total time spent providing and/or coordinating discharge services: - Discharge Medications Prescriptions: Omeprazole [PriLOSEC] 40 mg PO DAILY #30 cap Home Medications: Aspirin 81 mg PO DAILY 08/21/16 [History] Dabigatran [Pradaxa] 150 mg PO BID 08/21/16 [History] Diltiazem HCl [Diltiazem 24Hr Cd] 360 mg PO DAILY 08/21/16 [History] Insulin Glargine [Lantus] 27 unit SQ HS 08/21/16 [History] Insulin LISPRO [Humalog] 7 - 10 unit SQ TID PRN 08/21/16 [History] Losartan Potassium [Cozaar] 100 mg PO DAILY 08/21/16 [History] Atorvastatin [Lipitor] 80 mg PO HS #60 tablet 04/26/17 [Rx] Flecainide 150 mg PO Q12HR #90 tablet 04/26/17 [Rx] Omeprazole [PriLOSEC] 40 mg PO DAILY #30 cap 10/08/17 [Rx] Allergies/Adverse Reactions: 3 Allergy/AdvReac Type Severity Reaction Status Date / Time Penicillins [PCN] Allergy Anaphylaxis Verified 04/22/17 08:49 Sulfa (Sulfonamide Allergy Hives Verified 04/22/17 08:49 Antibiotics) Date of admission: 10/06/17 13:03 Primary care physician: Americo Arguello Jr, MD Discharging clinician: Wilma Trinidad Anticipated date of discharge: 10/08/17 - Constitutional Vitals: Temp Pulse Resp BP Pulse Ox 97.6 F 83 16 128/73 97 10/08/17 12:01 10/08/17 12:01 10/08/17 12:01 10/08/17 12:01 10/08/17 12:01 General appearance: Present: A&O X 3, no acute distress - Head Head exam: Present: atraumatic, normocephalic - Eye Eye exam: Present: PERRL, conjuntiva pink, sclera anicteric Pupils: Present: PERRL - Neck Neck exam general surgery: Present: supple, trachea midline. Absent: lymphadenopathy - Respiratory Respiratory exam: Present: CTAB. Absent: accessory muscle use, rales, rhonchi, wheezes - Cardiovascular Cardiovascular exam: Present: RRR, +S1, +S2. Absent: diastolic murmur, gallop, rubs, systolic murmur - GI/Abdominal GI/Abdominal exam: Present: normal bowel sounds, soft, no peritoneal signs. Absent: distended, tenderness - Extremities Exam Extremities exam: Present: warm, radial pulses palpable and symmetrical. Absent : calf tenderness, cyanotic, pedal edema - Neurological Exam Neurological exam: Present: CN II-XII intact, oriented X3, no focal deficits. Absent: pronater drift, facial droop, speech deficit - Skin Skin exam: Present: dry, intact - Patient Status Disposition: Home, Self-Care Condition: Good Functional capacity at discharge: independent ambulation Overall status at discharge: patient is back to baseline - Discharge Instructions Instructions: Atrial Fibrillation (DC) Follow Up With: Americo Arguello Jr, MD [Primary Care Provider] - Aniket Siu MD [Partnered Physician] - 10/21/17 (Please keep your appointment on 10/21/17 as previously scheduled for cyroblation) - Diet and Activity Activity: increase activity as tolerated Diet: diabetic diet, low fat, low cholesterol
--- NOTE | 2017-10-08 19:52 | Electrocardiograph Report ---
[address] [address] Test Date: 2017-10-06 Pat Name: Yaa Marquez Department: 102 Room: 3B Gender: F Ic Engineer: Arianna : 1945 Requested By: Dalia Clark Order Number: [id number] Reading MD: Adelita Siu Measurements Intervals [place] Rate: 55 P: [place]: 0 QRS: 47 QRSD: 111 T: 52 QT: 414 QTc: 403 Interpretive Statements ATRIAL FIBRILLATION WITH SLOW VENTRICULAR RESPONSE MODERATE INTRAVENTRICULAR CONDUCTION DELAY [110+ ms QRS DURATION] ABNORMAL RHYTHM ECG Electronically Signed On 10-08-2017 19:50:54 EST by Adelita Siu
--- NOTE | 2017-10-08 19:52 | Electrocardiograph Report ---
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
[2017-10-09] MEDS ORDERED: Diltiazem CD (24hr) 180 MG CAPSULE PO SCH (09:00)
== END 2017-10-08 16:32 | disposition home or self-care (01) ==
LOC: 3BNU 10:50 → EMEROO 10:50 → SUATTDRO 13:03 → 3BNU 13:53
PROVIDERS: ADMIT Internal Medicine; ATTEND Registered Nurse

== ENCOUNTER 2017-10-21 10:25 | Observation (INO) ==
--- NOTE | 2017-10-21 11:18 | Anesthesia Evaluation PreOp ---
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: Denies Any Significant HX Other Medical History: Renal (CKD 3), Diabetes Type II, GERD Anesthesia History: No Prior Anesthetic Complications, Past Anesthesia (CTR, right CEA, bilateral RCR, cataracts) Alcohol Use: none Drug use: none Medications and Allergies Aspirin 81 mg PO DAILY 08/21/16 [History] Dabigatran [Pradaxa] 150 mg PO BID 08/21/16 [History] Diltiazem HCl [Diltiazem 24Hr Cd] 360 mg PO DAILY 08/21/16 [History] Insulin Glargine [Lantus] 27 unit SQ HS 08/21/16 [History] Insulin LISPRO [Humalog] 7 - 10 unit SQ TID PRN 08/21/16 [History] Losartan Potassium [Cozaar] 100 mg PO DAILY 08/21/16 [History] Atorvastatin [Lipitor] 80 mg PO HS #60 tablet 04/26/17 [Rx] Flecainide 150 mg PO Q12HR #90 tablet 04/26/17 [Rx] 3 Allergy/AdvReac Type Severity Reaction Status Date / Time Penicillins [PCN] Allergy Anaphylaxis Verified 04/22/17 08:49 Sulfa (Sulfonamide Allergy Hives Verified 04/22/17 08:49 Antibiotics) - Meds/Allergy Pre-op Review Medications Reviewed: Yes Allergies Reviewed: Yes Beta Blockers on Current Med List: Yes If Beta Blockers taken, Date/Time (Last Dose taken): today 0900 Anesthesia Results - Imaging EKG: report reviewed (SINUS BRADYCARDIA WITH FIRST DEGREE AV BLOCK MODERATE INTRAVENTRICULAR CONDUCTION DELAY [110+ ms QRS DURATION]) Additional studies: JESUS: JESUS Impressions: LVEF 60-65%. Normal LV size and function. The right ventricle was normal in size and systolic function. Mildly dilated left atrium. LA appendage is normal in appearance. No thrombus. Cardioversion Impressions: Successful synchronized cardioversion using 150 Joules. No neurological deficits after the procedure. stress: mpression: Pharmacologic stress ECG is non-diagnostic for ischemia due to submaximal HR. Gated EF > 70%. Small sized, mild intensity, reversible apical lateral defect. Although I suspect this is artifact, ischemia cannot be excluded. Perfusion imaging was negative for infarct. Anesthesia Exam - HEENT Pupil (Motor): EOMI Mallampati: II Teeth: Normal Oral Opening: Greater than 3 - FOUR ROLL CALENDER OPERATOR LOC: Oriented FOUR ROLL CALENDER OPERATOR Motor: Normal RUE, Normal LUE, Normal RLE, Normal LLE, Normal Face FOUR ROLL CALENDER OPERATOR Sensory: Normal: RUE, LUE, RLE, LLE, Face - Cardiac Rhythm: Regular Murmur: None - Pulmonary Breath Sounds: bilateral Clear Respiratory Effort: Symmetrical Anesthesia Assess/Plan ASA Score: 3 Modified Ismael Scale for Level of Consciousness: Cooperative, oriented, and tranquil Anesthetic Plan: General Monitoring Plan: Standard Monitors Recovery Plan: Other (agrees to GA)
--- NOTE | 2017-10-21 11:36 | Electrophysiology H & P ---
Date of Encounter: 10/21/17 Time of Encounter: 11:34 Assessment and Plan (1) Paroxysmal atrial fibrillation Current Visit: No Status: Acute The assessment and plan as outlined above was discussed with the patient and/or family members who expressed understanding and agreement. All questions were answered. Recurrent and symptomatic despite antiarrythmic. We discussed risks and benefits of cryoablation for AF. She agrees to proceed. History of Present Illness Chief complaint: PAF HPI: Ms. Marquez is a 72 year old female with a history of PAF treated with flecainide. She has had symptomatic recurrance despite antiarrythmic. She is here now for cryoablation. Past Med Surg Social Fam HX - Past Medical History Medical history: arthritis, atrial fibrillation, coronary artery disease, diabetes, GERD, hyperlipidemia, hypertension Psychiatric history: no psych history - Past Surgical History Surgical History: carotid endarterectomy, cataract, orthopedic, other, other - Social History Smoking Status: Never smoker Smokeless Tobacco Status: No Alcohol use: none Drug use: none - Family History Father Family Member Ethnicity: Non- Living Status: Hx Family Cardiac Disorders: Yes (AR) Hx Family Endocrine Disorder: Yes (DM) Mother Family Member Ethnicity: Non- Living Status: Hx Family Cardiac Disorders: Yes (HD, HTN) Hx Family Endocrine Disorder: Yes (DM) Sister Family Member Ethnicity: Non- Living Status: Still Living Hx Family Endocrine Disorder: Yes (DM) Medications and Allergies Aspirin 81 mg PO DAILY 08/21/16 [History] Dabigatran [Pradaxa] 150 mg PO BID 08/21/16 [History] Diltiazem HCl [Diltiazem 24Hr Cd] 360 mg PO DAILY 08/21/16 [History] Insulin Glargine [Lantus] 27 unit SQ HS 08/21/16 [History] Insulin LISPRO [Humalog] 7 - 10 unit SQ TID PRN 08/21/16 [History] Losartan Potassium [Cozaar] 100 mg PO DAILY 08/21/16 [History] Atorvastatin [Lipitor] 80 mg PO HS #60 tablet 04/26/17 [Rx] Flecainide 150 mg PO Q12HR #90 tablet 04/26/17 [Rx] 3 Allergy/AdvReac Type Severity Reaction Status Date / Time Penicillins [PCN] Allergy Anaphylaxis Verified 04/22/17 08:49 Sulfa (Sulfonamide Allergy Hives Verified 04/22/17 08:49 Antibiotics) All Systems Review: The remainder of the systems were reviewed and are negative Physical Examination General: Conversant, No Apparent Distress HEENT: Atraumatic, Normocephaly, Mucus Membranes Moist Neck: No JVD, Normal carotid pulses Cardiac: Reg Rate and Rhythm, Normal S1 and S2, No Murmur Lungs: Normal Breath Sounds, No Wheeze, Rales, Rhonchi Neuro: Alert and responsive, No focal deficits noted Abdomen: Soft, Non-Tender Skin: No rashes noted on visualized skin Musculoskeletal: No Chest Wall Tenderness Extremities: No Clubbing, No Cyanosis, No Edema, Normal Pulses
[2017-10-21] MEDS ORDERED: 0.9 % Sodium Chloride 1,000 ML ONE (11:46)
[2017-10-21] MEDS ORDERED: ISOVUE-370 200 ML INFUS..BTL IV ONE (11:46)
[2017-10-21] MEDS ORDERED: *HR* Heparin 10,000 UNIT/10 ML VIAL ONE (11:46)
[2017-10-21] MEDS ORDERED: Heparin 1,000 UNITS/500 mL 1,500 ML ONE (11:46)
[2017-10-21] MEDS: 0.9 % Sodium Chloride 1,000 ML IVC SCH ×2 (11:55→22:43)
[2017-10-21] MEDS ORDERED: *HR* FentaNYL (PF) 100 MCG/2 ML VIAL ONE (12:02)
[2017-10-21] MEDS ORDERED: Protamine Sulfate 50 MG/5 ML VIAL IVP ONE (14:16)
[2017-10-21] MEDS ORDERED: Naloxone 0.4 MG/ML INJ IVP PRN (14:57)
[2017-10-21] MEDS ORDERED: *HR* Succinylcholine 200 MG/10 ML VIAL IVP ONE (16:03)
[2017-10-21] MEDS ORDERED: *HR* Phenylephrine 10 MG/ML VIAL IVC ONE (16:03)
[2017-10-21] MEDS ORDERED: Lidocaine -MPF 2% 5 ML VIAL INFILT ONE (16:03)
[2017-10-21] MEDS ORDERED: Ondansetron 4 MG/2 ML VIAL IVP ONE (16:03)
[2017-10-21] MEDS ORDERED: Lidocaine -MPF 4% 5 ML AMPUL INFILT ONE (16:03)
[2017-10-21] MEDS ORDERED: *HR* Propofol 200 MG/20 ML VIAL IVP ONE (16:03)
[2017-10-21] MEDS: Insulin LISPRO 300 UNITS/3 ML VIAL SQ SCH ×2 (16:29→17:28)
[2017-10-21] MEDS: Acetaminophen 325 MG TABLET PO PRN (19:26)
[2017-10-21] MEDS ORDERED: Insulin DETEMIR 100 UNIT/ML X5UNITS SQ SCH (21:00)
[2017-10-21] MEDS: *HR* Dabigatran 150 MG CAPSULE PO SCH (21:19)
[2017-10-22] MEDS: *HR* Dabigatran 150 MG CAPSULE PO SCH (07:38)
[2017-10-22] MEDS: Insulin LISPRO 300 UNITS/3 ML VIAL SQ SCH ×2 (07:39→12:11)
[2017-10-22] MEDS ORDERED: Aspirin 81 MG TAB.CHEW PO SCH (09:00)
[2017-10-22] MEDS ORDERED: Diltiazem CD (24hr) 180 MG CAPSULE PO SCH (09:00)
--- NOTE | 2017-10-22 11:43 | Discharge Summary ---
Orders not resulted at time of discharge: Pending orders 10/21/17 11:12 CL Ablation [CL] Routine Date of Encounter: 10/22/17 Time of Encounter: 11:38 - Discharge Diagnosis (1) S/P ablation of atrial fibrillation Priority: Primary Status: Acute (2) Paroxysmal atrial fibrillation Priority: Primary Status: Acute (3) CAD (coronary artery disease) Priority: Secondary Status: Chronic Comments: H/o non-obstructive CAD. Qualifiers: Coronary Disease-Associated Artery/Lesion type: unspecified vessel or lesion type [place] vs. transplanted heart: [place] heart Associated angina: with unspecified angina Qualified Code(s): I25.119 - Atherosclerotic heart disease of [place] coronary artery with unspecified angina pectoris - Hospital Course Hospital course: Ms. Marquez is a 72 year old female with a past medical history of PAF on flecainide who presented for atrial fibrillation cryo-ablation 10/21/[address] Aniket Siu. There was no complication from her procedure. There was no problems with her bilateral groin access sites. She did note a mild pleuritic chest discomfort after procedure and throat soreness otherwise she is doing well. She is hemodynamically stable. EKG shows SR with first degree AV block. Findings reviewed with Dr. Siu. She is ok for discharge home. B/p was mildly elevated through the night (150/70). HCTZ added to medication regimen. Indication and SE for medication change reviewed. Recommend BMP in one week. F/ u with [facility] will be scheduled in 2 weeks. - Time Spent with Patient Total time spent providing and/or coordinating discharge services: Greater than 30 minutes - Discharge Medications Prescriptions: hydroCHLOROthiazide [Hydrochlorothiazide] 12.5 mg PO DAILY #30 tablet Home Medications: Aspirin 81 mg PO DAILY 08/21/16 [History] Dabigatran [Pradaxa] 150 mg PO BID 08/21/16 [History] Diltiazem HCl [Diltiazem 24Hr Cd] 360 mg PO DAILY 08/21/16 [History] Insulin Glargine [Lantus] 27 unit SQ HS 08/21/16 [History] Losartan Potassium [Cozaar] 100 mg PO DAILY 08/21/16 [History] Atorvastatin [Lipitor] 80 mg PO HS #60 tablet 04/26/17 [Rx] Flecainide 150 mg PO Q12HR #90 tablet 04/26/17 [Rx] Insulin ASPART [Novolog Flexpen] 7 - 10 unit SQ TID PRN 10/22/17 [History] Insulin LISPRO [HumaLOG] 7 units SQ TIDWM vial 10/22/17 [Rx] hydroCHLOROthiazide [Hydrochlorothiazide] 12.5 mg PO DAILY #30 tablet 10/22/17 [ Rx] Allergies/Adverse Reactions: 3 Allergy/AdvReac Type Severity Reaction Status Date / Time Penicillins [PCN] Allergy Anaphylaxis Verified 04/22/17 08:49 Sulfa (Sulfonamide Allergy Hives Verified 04/22/17 08:49 Antibiotics) Date of admission: 10/21/17 16:02 Primary care physician: Americo Arguello Jr, MD Consults: None Discharging clinician: Julio aZman Anticipated date of discharge: 10/22/17 Physical Examination Vital Signs, Last 4 Hours Pulse 10/22/17 09:20 81 General: Conversant, No Apparent Distress HEENT: Atraumatic, Normocephaly, Mucus Membranes Moist Neck: No JVD, Normal carotid pulses Cardiac: Reg Rate and Rhythm, Normal S1 and S2, No Murmur Lungs: Normal Breath Sounds, No Wheeze, Rales, Rhonchi Neuro: Alert and responsive, No focal deficits noted Abdomen: Soft, Non-Tender Skin: No rashes noted on visualized skin Musculoskeletal: No Chest Wall Tenderness Extremities: No Clubbing, No Cyanosis, No Edema, Normal Pulses, Other ( Bilateral groin soft. No hematoma. ) - Patient Status Disposition: Home, Self-Care Condition: Good Functional capacity at discharge: independent ambulation Overall status at discharge: patient is progressing back to baseline - Discharge Instructions Follow Up With: Americo Arguello Jr, MD [Primary Care Provider] - 10/30/17 11:00 am Criselda Loza CNP [Advanced Practice Nurse] - 11/12/17 9:30 am Additional Instructions: ACTIVITY: It is recommended to have someone stay overnight for the first night after the procedure. Avoid strenuous activity, climbing stairs, and no lifting more than 5 pounds (gallon of milk) for 5-7 days to minimize risk of bleeding from procedure site. BATHING/SHOWERING: Sponge bathe only for the first 24 hours. You may shower after 24 hours. Allow water to rinse over site, do not scrub site, and pat dry gently with a towel. No baths, hot tubs, or soaking for 5-7 days. WOUND CARE: Do not remove the bandage over the site for 24 hours. Do not use any antibiotic ointment or Vitamin E on the site. If you have any bleeding or swelling to the groin, please lay flat and hold pressure for 15 minutes. Return to work as instructed per physician Resume driving as instructed per physician Keep all scheduled follow up appointments Resume medications as instructed Contact [facility] ( ) if: You develop excessive bleeding from insertion or wound site not controlled by applying pressure You develop a fever greater than 101 degrees Fahrenheit Your incision becomes reddened at or around the site Your incision develops yellowish or greenish drainage or development of white pimple-like bumps You experience excessive pain You experience muscle switching If you experience chest pain, shortness of breath, dizziness, or extreme tiredness, stop the activity and rest. Please notify [facility] office if you experience any of these symptoms and they are not relieved by rest please call 911! - Diet and Activity Activity: increase activity as tolerated, other (No driving for one week. ) Diet: low fat, low cholesterol - VTE Reasons for not Prescribing Prophylaxis: Not indicated-Anticoagulated or INR therapeutic
[2017-10-22] MEDS ORDERED: hydroCHLOROthiazide 25 MG TABLET PO SCH (11:45)
[2017-10-22] MEDS: Acetaminophen 325 MG TABLET PO PRN (13:07)
[2017-10-22 16:07] VITALS: BP 153/69
--- NOTE | 2017-10-22 23:32 | Electrocardiograph Report ---
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
--- NOTE | 2017-10-23 19:37 | Electrocardiograph Report ---
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
== END 2017-10-22 16:41 | disposition home or self-care (01) ==
LOC: INVDIALAB 10:25 → 2NNU 10:25
PROVIDERS: ADMIT Internal Medicine Clinical Cardiac Electrophysiology; ATTEND Internal Medicine Clinical Cardiac Electrophysiology

== ENCOUNTER 2021-04-21 13:31 | Observation (INO) ==
[2021-04-21 14:13] LABS: Basophils % 0.5 %; Eosinophils # 0.2 K/mcL (0.0-0.6); Hematocrit 38.2 % (35.3-44.9); Hemoglobin 12.5 g/dL (11.5-15.4); Immature Granulocytes % 0.3 % (0-4); Lymphocytes # 1.2 K/mcL (0.6-4.6); Lymphocytes % 18.9 %; Mean Corpuscular HGB Conc 32.7 g/dL (31.6-35.5); Mean Corpuscular Hemoglobin 33.3 pg (28.0-33.3); Mean Corpuscular Volume 101.9 fL (83.0-100.0); Mean Platelet Volume 9.6 fL (9.4-12.4); Monocytes # 0.5 K/mcL (0.0-1.3); Monocytes % 7.4 %; Neutrophils # 4.5 K/mcL (1.6-8.9); Platelet Count 259 K/mcL (140-400); Red Blood Count 3.75 M/mcL (3.82-4.97); Red Cell Distribution Width 12.4 % (11.5-14.5); Segmented Neutrophils % 69.9 %; White Blood Count 6.4 K/mcL (4.3-11.1)
[2021-04-21 14:34] LABS: BUN/Creatinine Ratio 15 (6-26); Blood Urea Nitrogen 25 mg/dL (8-23); Calcium 9.8 mg/dL (8.6-10.3); Carbon Dioxide 25 mEq/L (23-29); Chloride 101 mEq/L (98-107); Glucose 296 mg/dL (70-105); Osmolality,Calculated 297 (280-300); Potassium 4.2 mEq/L (3.5-5.1); Sodium 136 mEq/L (136-145); eGFR For African Americans 36 (> 60); eGFR For Non-African Americans 30 (> 60)
[2021-04-21 14:35] LABS: Troponin I < 0.03 ng/mL (< 0.04)
[2021-04-21 14:48] LABS: Thyroid Stimulating Hormone 3.207 mcIU/mL (0.340-5.600)
[2021-04-21] MEDS ORDERED: 0.9 % Sodium Chloride 1,000 ML IVC ONE (15:26)
[2021-04-21] MEDS ORDERED: Naloxone 0.4 MG/ML INJ IVP PRN (16:31)
[2021-04-21] MEDS ORDERED: Ondansetron 4 MG/2 ML VIAL IVP PRN (16:31)
[2021-04-21] MEDS ORDERED: *HR* Dextrose 50 % in Water (Syg) 50 ML SYRINGE IVP PRN (16:34)
[2021-04-21] MEDS ORDERED: Dextrose Gel 15 GM/37.5 ML TUBE PO PRN ×2 (16:34)
[2021-04-21] MEDS ORDERED: D5% in Water 1,000 ML IVC PRN (16:34)
[2021-04-21] MEDS ORDERED: Perflutren Lipid Microsphere 1.3 ML in 0.9 % Sodium Chloride 8.7 ML IVP PRN (16:41)
[2021-04-21 17:00] LABS: Magnesium 1.7 mg/dL (1.6-2.6)
[2021-04-21] MEDS ORDERED: Sucralfate 1 GM TABLET PO PRN (17:17)
[2021-04-21 17:22] LABS: Adenovirus Not Detected (Not Detect); Bordetella Pertussis Not Detected (Not Detect); Chlamydophila pneumoniae Not Detected (Not Detect); Coronavirus 229E Not Detected (Not Detect); Coronavirus HKU1 Not Detected (Not Detect); Coronavirus NL63 Not Detected (Not Detect); Coronavirus OC43 Not Detected (Not Detect); Human Metapneumovirus Not Detected (Not Detect); Human Rhinovirus/Enterovirus Not Detected (Not Detect); Influenza A Subtype 2009 H1 Not Detected (Not Detect); Influenza B Not Detected (Not Detect); Mycoplasma pneumoniae Not Detected (Not Detect); Parainfluenza Virus 1 Not Detected (Not Detect); Parainfluenza Virus 2 Not Detected (Not Detect); Parainfluenza Virus 3 Not Detected (Not Detect); Parainfluenza Virus 4 Not Detected (Not Detect); Respiratory Syncytial Virus Not Detected (Not Detect); SARS-CoV-2 Not Detected (Not Detect)
[2021-04-21] MEDS: *HR* Dabigatran 150 MG CAPSULE PO SCH (20:56)
[2021-04-21] MEDS ORDERED: Insulin DETEMIR 100 UNIT/ML X5UNITS SUBQ SCH (21:00)
[2021-04-21] MEDS ORDERED: Insulin LISPRO 300 UNITS/3 ML VIAL SUBQ SCH (21:00)
[2021-04-22 07:07] VITALS: O2SAT 98
[2021-04-22 07:29] LABS: Basophils % 0.6 %; Eosinophils # 0.3 K/mcL (0.0-0.6); Eosinophils % 5.6 %; Hematocrit 35.5 % (35.3-44.9); Hemoglobin 11.6 g/dL (11.5-15.4); Immature Granulocytes % 0.2 % (0-4); Lymphocytes # 1.6 K/mcL (0.6-4.6); Lymphocytes % 31.1 %; Mean Corpuscular HGB Conc 32.7 g/dL (31.6-35.5); Mean Corpuscular Hemoglobin 33.8 pg (28.0-33.3); Mean Corpuscular Volume 103.5 fL (83.0-100.0); Mean Platelet Volume 9.3 fL (9.4-12.4); Monocytes # 0.5 K/mcL (0.0-1.3); Monocytes % 9.5 %; Neutrophils # 2.7 K/mcL (1.6-8.9); Platelet Count 218 K/mcL (140-400); Red Blood Count 3.43 M/mcL (3.82-4.97); Red Cell Distribution Width 12.4 % (11.5-14.5); White Blood Count 5.2 K/mcL (4.3-11.1)
[2021-04-22 07:44] LABS: Calcium 9.4 mg/dL (8.6-10.3); Magnesium 2.2 mg/dL (1.6-2.6); Phosphorous 3.7 mg/dL (2.7-4.5); Potassium 4.4 mEq/L (3.5-5.1)
[2021-04-22] MEDS ORDERED: DilTIAZem CD (24hr) 180 MG CAP.ER.24H PO SCH (09:00)
[2021-04-22] MEDS ORDERED: Aspirin 81 MG TAB.CHEW PO SCH (09:00)
[2021-04-22] MEDS: *HR* Dabigatran 150 MG CAPSULE PO SCH (09:15)
[2021-04-22] MEDS: Insulin LISPRO 300 UNITS/3 ML VIAL SUBQ SCH ×2 (09:22→12:05)
[2021-04-22 10:40] VITALS: BP 146/70; PULSE 79; TEMP 98
== END 2021-04-22 15:47 | disposition home or self-care (01) ==
LOC: EMEROOARM 13:31 → 3BNU 13:31
PROVIDERS: ADMIT Internal Medicine; ATTEND Internal Medicine